=== PATIENT | female | born 1945 | race Caucasian/White ===

== ENCOUNTER → 2016-09-18 | Outpatient (CLI) | payer MEDICARE, OTHER ==
[2016-09-18 11:08] LABS: Blood Urea Nitrogen 13 mg/dL (7-17); Non-African American GFR(MDRD) >60 (>60 ml/min/1.73 sqM)
--- NOTE | 2016-09-18 12:07 | CT ---
EXAMINATION TYPE: CT chest w con DATE OF EXAM: 09/18/2016 11:46 AM COMPARISON: CT chest and abdomen July 04, [address] February 09, 2016 HISTORY: Patient has no complaints at time of study. Follow up study for known lung CA with history or Right lower lobectomy. CT DLP: 169.8 mGycm. Automated Exposure Control for Dose Reduction was Utilized. TECHNIQUE: CT scan of the thorax is performed following with IV Contrast, patient injected with 100 mL of Omnipaque 300. FINDINGS: LUNGS: Mild apical scarring bilaterally is redemonstrated. There is background of mild emphysematous change redemonstrated. Surgical clips and partial right-sided pneumonectomy are again present. There is persistent small to moderate-sized right pleural effusion or fluid collection fairly stable from p rior exam. Some associated basilar atelectasis is redemonstrated. No new parenchymal nodule or mass i s clearly identified in either lung. Slightly more focal low dense nodular fluid is seen on axial payton ge 37 but Hounsfield units are similar to adjacent pleural fluid. This area is improved from prior st udy where was at area of concern noted on prior report suggesting benign etiology. MEDIASTINUM: There are no greater than 1 cm hilar or mediastinal lymph nodes. No pericardial effusi on is seen. There is stable cardiomegaly with atherosclerotic thoracic aorta. Coronary artery calcif ication is redemonstrated. Ascending aorta measures 3.5 cm in diameter on axial image 27 felt stable from prior study. OTHER: Slight scoliotic curvature to the thoracic spine with multilevel spurring is again seen. IMPRESSION: Overall stable findings, no new mass or adenopathy is clearly seen to suggest neoplastic recurrence. Other findings as noted above.
== END | disposition home or self-care (01) ==
LOC: RADCTMAIN 10:29
PROVIDERS: ATTEND Internal Medicine Hematology & Oncology
DX: C34.90 Malignant neoplasm of unspecified part of unspecified bronchus or lung (principal)
CPT/HCPCS: 82565; 84520; 71260; 36415; Q9967

== ENCOUNTER → 2016-12-10 | Outpatient (CLI) | payer MEDICARE, OTHER ==
[2016-12-10 09:28] LABS: Blood Urea Nitrogen 20 mg/dL (7-17); Non-African American GFR(MDRD) >60 (>60 ml/min/1.73 sqM)
--- NOTE | 2016-12-10 10:50 | CT ---
EXAMINATION TYPE: CT ChestAbdPelvis w con DATE OF EXAM: 12/10/2016 COMPARISON: CT chest September 18, 2016. CT chest and abdomen July 04, 2016. HISTORY: Lung cancer CT DLP: 1794 mGycm. Automated Exposure Control for Dose Reduction was Utilized. CONTRAST: CT scan of the thorax, abdomen and pelvis is performed with oral and with IV Contrast, patient inject ed with 100 ml mL of Omnipaque 300. FINDINGS: LUNGS: Mild apical scarring bilaterally is redemonstrated. There is background mild to borderline mo derate emphysematous change again seen. There is persistent small to tiny right pleural fluid collect ion diminished in size from prior exam. There is right basilar linear scarring and/or atelectasis red emonstrated. There is interval improvement of nodular fluid collection right lung base. No new suspic ious parenchymal nodules or masses are identified. No pneumothorax is seen bilaterally. Tracheobronch ial tree is patent. Postsurgical changes from right-sided partial pneumonectomy are again present. MEDIASTINUM: There are no new greater than 1 cm hilar or mediastinal lymph nodes. Slightly prominent but subcentimeter paratracheal and right hilar lymph nodes are redemonstrated. No pericardial effusio n is seen. There is stable mild cardiomegaly. There is coronary artery calcification redemonstrated. Ascending aorta measures 3.5 cm in diameter on axial image 27 felt stable. OTHER: No additional significant abnormality is seen. LIVER/GB: No significant abnormality is appreciated. PANCREAS: No significant abnormality is seen. SPLEEN: No significant abnormality is seen. ADRENALS: No significant abnormality is seen. KIDNEYS: Subcentimeter low dense lesions lower pole left kidney are too small to further characterize per presumed benign. BOWEL: Some wall thickening of the distal rectum/anus is present seen best on coronal image 63, neopl asm at this level cannot be excluded, correlation with direct physical exam advised. GENITAL ORGANS: Uterus is surgically absent. Slightly prominent cervical remnant is seen impressing a long inferior bladder wall on axial image 116, consider correlating with direct physical exam. LYMPH NODES: No greater than 1cm abdominal or pelvic lymph nodes are appreciated. OSSEOUS STRUCTURES: There is slight scoliotic curvature in the thoracic spine. There is multilevel sp urring in the thoracolumbar spine. There are laminectomy defects and spinous process resection in the lower lumbar spine. Facet arthropathy lower lumbar levels is seen. OTHER: There is moderate atherosclerotic change of aorta extending into branch vessels. IMPRESSION: No new mass or adenopathy is seen to suggest neoplastic recurrence related to known lung cancer. Attention to distal rectum/anus and cervical remnant as detailed above.
== END | disposition home or self-care (01) ==
LOC: RADCTMAIN 08:54
PROVIDERS: ATTEND Internal Medicine Hematology & Oncology
DX: C34.31 Malignant neoplasm of lower lobe, right bronchus or lung (principal)
CPT/HCPCS: 82565; 84520; 71260; 74177; 36415; Q9967

== ENCOUNTER → 2017-03-07 | Outpatient (CLI) | payer MEDICARE, OTHER ==
[2017-03-07 10:21] LABS: Blood Urea Nitrogen 23 mg/dL (7-17); Non-African American GFR(MDRD) 54 (>60 ml/min/1.73 sqM)
--- NOTE | 2017-03-07 12:07 | CT ---
EXAMINATION TYPE: CT ChestAbdPelvis w con DATE OF EXAM: 03/07/2017 COMPARISON: CT chest abdomen and pelvis December 10, 2016. HISTORY: Lung Cancer progress study. CT DLP: 1877 mGycm. Automated Exposure Control for Dose Reduction was Utilized. CONTRAST: CT scan of the thorax, abdomen and pelvis is performed without oral but with IV Contrast, patient inj ected with 100 ml mL of Visipaque 320. FINDINGS: LUNGS: There is background moderate emphysematous change redemonstrated. There is persistent stable t iny right pleural effusion or pleural fluid collection redemonstrated. No new suspicious parenchymal nodule or mass is present bilaterally. No pneumothorax is seen bilaterally. Surgical change right hil ar level is redemonstrated. MEDIASTINUM: There are no new greater than 1 cm hilar or mediastinal lymph nodes. No cardiomegaly o r pericardial effusion is seen. Ascending aorta measures 3.6 cm in diameter on axial image 27. There is moderate mixed plaque in the aortic arch and descending aorta. Coronary artery calcification is p resent which is noted marker for coronary artery disease. OTHER: No additional significant abnormality is seen. LIVER/GB: No significant abnormality is appreciated. PANCREAS: No significant abnormality is seen. SPLEEN: No significant abnormality is seen. ADRENALS: No adrenal masses are noted. KIDNEYS: Subcentimeter low dense lesions lower pole level left kidney are too small to further charac terize but stable and presumed benign. BOWEL: Normal-appearing appendix is seen from cecum. GENITAL ORGANS: Uterus is surgically absent or markedly atrophic in appearance. LYMPH NODES: No greater than 1cm abdominal or pelvic lymph nodes are appreciated. OSSEOUS STRUCTURES: Osseous structures are somewhat demineralized. There is multilevel spurring in th e thoracolumbar spine. Slight scoliotic curvature is present. OTHER: There is fairly severe calcified plaque of the abdominal aorta extending into pelvic branch ve ssels. Cannot exclude significant stenosis in common iliac arteries bilaterally. IMPRESSION: No new mass or adenopathy is seen to suggest neoplastic recurrence.
== END | disposition home or self-care (01) ==
LOC: RADCTMAIN 09:40
PROVIDERS: ATTEND Internal Medicine Hematology & Oncology
DX: C34.31 Malignant neoplasm of lower lobe, right bronchus or lung (principal)
CPT/HCPCS: 82565; 84520; 71260; 74177; 36415; Q9967

== ENCOUNTER → 2017-09-23 | Outpatient (CLI) | payer MEDICARE, OTHER ==
--- NOTE | 2017-09-24 08:15 | CT ---
EXAMINATION TYPE: CT chest w con DATE OF EXAM: 09/23/2017 COMPARISON: CT chest June 23, 2017 and older studies back to February 09, 2016. Outside PET/CT Augus t 2015. HISTORY: Lung CA progress study. Completed chemotherapy July 2017. CT DLP: 241 mGycm. Automated Exposure Control for Dose Reduction was Utilized. TECHNIQUE: CT scan of the thorax is performed following with IV Contrast, patient injected with 100 mL of Visipaque 320. FINDINGS: LUNGS: There is background mild to moderate underlying emphysematous change redemonstrated. There is persistent small right pleural fluid collection and/or thickening in the base. There is persistent ri ght basilar linear scarring slightly thickened inferiorly but unchanged from most recent CT. Surgical changes from right-sided partial pneumonectomy with right-sided volume loss and clips towards right hilum are once again noted. No new suspicious parenchymal nodule or mass is present bilaterally. No p neumothorax is seen bilaterally. Mild Central peribronchial wall thickening is presumed product of un derlying COPD and felt unchanged. MEDIASTINUM: There is continued enlargement of tracheobronchial lymph node anterior to tom now roland suring 1.4 x 1.2 cm axial image 21, measured 1.0 x 0.6 cm on prior study. There is enlarged right par atracheal lymph node measuring 1.2 x 1.0 cm axial image 17, prior study measured 1.0 x 0.7 cm. Lymph node between SVC and right brachiocephalic artery on prior exam is now less well-defined curren t study near axial image 13. The subcentimeter right hilar lymph node axial image 26 is however felt stable. No cardiomegaly or pericardial effusion is seen. Ascending aorta measures up to 3.6 cm in di ameter axial image 27. There is moderate mixed plaque in aortic arch and descending aorta. There is l igation of right lower lobe pulmonary artery redemonstrated with scarring and/or clot at this level a xial image 30 unchanged from prior. OTHER: Slight scoliosis in the spine on coronal images is redemonstrated. 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 IMPRESSION: Continued suspicion of recurrent malignancy with increasing thoracic adenopathy in the pa racarinal and right paratracheal lymph nodes noted as detailed above
== END | disposition home or self-care (01) ==
LOC: RADCTMAIN 10:53
PROVIDERS: ATTEND Internal Medicine Hematology & Oncology
DX: R59.0 Localized enlarged lymph nodes (principal); Z88.8 Allergy status to other drugs, medicaments and biological substances
CPT/HCPCS: 82565; 84520; 71260; 36415; Q9967

== ENCOUNTER → 2017-11-08 | Outpatient (CLI) | payer MEDICARE, OTHER ==
--- NOTE | 2017-11-10 09:27 | PE ---
EXAMINATION TYPE: PET CT fusion skull to thigh DATE OF EXAM: 11/08/2017 COMPARISON: Outside PET/CT February 23, 2016. Chest CT September 23, 2017 and older studies. HISTORY: Lung cancer progress study . Had surgery July 03, 2017. Completed chemotherapy winter. TECHNIQUE: Following the intravenous administration of 10.69 mCi of F-18 FDG, whole body images are performed from the skull base to the midthigh. Images are reviewed on the computer in the coronal, a xial, and sagittal planes. Reconstructed rotating images are created on independent workstation and reviewed on the computer. A noncontrast CT is performed in conjunction with the PET scan. SCAN: Subsequent Scan FINDINGS: SKULL BASE AND NECK: There are new hypermetabolic supraclavicular lymph nodes slightly larger on the left side, for reference there is 9 x 6 mm lymph node axial image 52, max SUV is 5.84. CHEST, MEDIASTINUM, AND HILAR REGION: Abnormal thoracic lymph nodes are redemonstrated with hypermeta bolic uptake. There are hypermetabolic prevascular, anterior superior mediastinal, right paratracheal , and right tracheobronchial lymph nodes, for reference right tracheobronchial lymph node measures 15 x 12 mm axial image 76 with max SUV of 12.28. There is somewhat irregular right paratracheal lymph n ode measuring 13 x 12 mm axial image 67, max SUV is 9.68. ABDOMEN AND PELVIS: No suspicious hypermetabolic uptake is seen. OSSEOUS STRUCTURES: No suspicious hypermetabolic uptake is seen. OTHER CT: There is mild to moderate calcified plaque at bilateral carotid bulbs. Coronary artery calcification is present. There is background chronic emphysematous change with bibas ilar linear scarring and/or atelectasis. Ascending aorta measures up to 3.6 cm in diameter stable fro m prior. Surgical clips right lower lobe arterial origin are redemonstrated. There is moderate to severe calcified plaque of aorta. IMPRESSION: PET/CT confirms recurrent neoplasm as suspected on CT with thoracic and supraclavicular a denopathy identified.
== END ==
LOC: RADPETMAIN 08:26
PROVIDERS: ATTEND Internal Medicine Hematology & Oncology
DX: C34.31 Malignant neoplasm of lower lobe, right bronchus or lung (principal); E11.9 Type 2 diabetes mellitus without complications; K25.9 Gastric ulcer, unspecified as acute or chronic, without hemorrhage or perforation; R59.0 Localized enlarged lymph nodes
CPT/HCPCS: 78815; A9552

== ENCOUNTER → 2018-02-11 | Outpatient (CLI) | payer MEDICARE, OTHER ==
--- NOTE | 2018-02-12 07:07 | CT ---
EXAMINATION TYPE: CT chest w con DATE OF EXAM: 02/11/2018 COMPARISON: Chest CT September 23, 2017 and older CTs. Most recent PET CT November 08, 2017. HISTORY: Follow up scan for known lung cancer diagnosed 2 years ago with right-sided lung surgery Dec 2016. Completed chemotherapy in winter 2017. CT DLP: 530 mGycm. Automated Exposure Control for Dose Reduction was Utilized. TECHNIQUE: CT scan of the thorax is performed following with IV Contrast, patient injected with 80 m L of Isovue 300. FINDINGS: LUNGS: Background moderate underlying emphysematous changes redemonstrated. There is persistent right -sided volume loss with surgical changes right hilar region. There is right basilar linear scarring a nd small area of chronic pleural thickening redemonstrated. No new suspicious parenchymal nodule or m ass is identified bilaterally. Left lung remains clear. No new pleural effusion or pneumothorax is pr esent. MEDIASTINUM: Correlating with most recent PET/CT there is positive treatment response. There is mar ked decrease in size of previously visualized enlarged hypermetabolic lymph nodes. Largest measured l ymph node current study is 8 x 6 mm right tracheobronchial level versus 15 x 12 mm on recent PET/CT. No suspicious supraclavicular adenopathy on current study. No cardiomegaly or pericardial effusion is seen. Coronary artery calcification is redemonstrated. Ascending aorta measures up to 3.5 cm in mario meter not significantly changed from prior. OTHER: There are few subcentimeter enhancing foci in the liver redemonstrated for reference coronal i mage 32 2 lesions are redemonstrated, suspect flash filling hemangiomas. Some disc calcification is r edemonstrated roughly T6-T7 level. Slight underlying S-shaped scoliosis is again seen. IMPRESSION: Positive treatment response with interval improvement in recently visualized recurrent thoracic adenopathy. No greater than 1 cm on short axis adenopathy identified currently.
== END | disposition home or self-care (01) ==
LOC: RADCTMAIN 13:54
PROVIDERS: ATTEND Internal Medicine Hematology & Oncology
DX: C34.31 Malignant neoplasm of lower lobe, right bronchus or lung (principal); R59.0 Localized enlarged lymph nodes
CPT/HCPCS: 82565; 84520; 71260; 36415; Q9967

== ENCOUNTER → 2018-09-18 | Outpatient (CLI) | payer MEDICARE, OTHER ==
--- NOTE | 2018-09-18 13:30 | CT ---
EXAMINATION TYPE: CT ChestAbdPelvis wo con DATE OF EXAM: 09/18/2018 COMPARISON: 06/04/2018 HISTORY: follow up for known lung ca CT DLP: 482.8 mGycm. Automated Exposure Control for Dose Reduction was Utilized. TECHNIQUE: CT scan of the thorax, abdomen and pelvis is performed without IV contrast. FINDINGS: LUNGS: Partial lobectomy changes are seen within the medial right upper lobe. There is subsequent rig ht hemithorax volume loss. There is a 3 mm right upper lobe lateral pulmonary nodule on series 4 imag e 27 that is unchanged. The 3 mm right upper lobe anterior pulmonary nodule is less conspicuous on to day's exam. The previously seen groundglass opacity in the right lung apex has resolved. Background mild to moderate centrilobular emphysematous changes are again noted. Chronic pleural thic kening in the right lung base is present. 3 mm left-sided pulmonary nodule on image 33 is retrospecti vely unchanged. No new suspicious pulmonary nodules or masses are seen. The lungs are grossly clear, there is no concerning parenchymal mass or nodule identified. There is no pleural effusion or pneum othorax seen. The tracheobronchial tree is patent. MEDIASTINUM: There are no greater than 1 cm hilar or mediastinal lymph nodes. Extensive coronary calc ifications and atheromatous changes of the thoracic aorta are noted. Ascending thoracic aorta and kimberly n pulmonary artery are within normal limits. No pericardial effusion is seen. OTHER: Very small hiatal hernia seen. LIVER/GB: No significant abnormality is appreciated. The known subcentimeter hepatic lesions are not well appreciated without contrast. No cholelithiasis PANCREAS: Again the pancreatic tail is significantly atrophic.. SPLEEN: No significant abnormality is seen. ADRENALS: No significant abnormality is seen. KIDNEYS: No significant abnormality is seen. BOWEL: There is a descending duodenal diverticulum. Focal bowel wall thickening of the ascending colo n has resolved and was likely related to peristalsis/colonic spasm. Moderate amount retained colonic stool does limit evaluation of the bowel as does lack of intravenous contrast. No dilated large or sm all bowel. Appendix is air-filled and within normal limits. GENITAL ORGANS: No gross abnormality seen. LYMPH NODES: No greater than 1cm abdominal or pelvic lymph nodes are appreciated. OSSEOUS STRUCTURES: Grade 1 anterolisthesis of L4 on L5 is redemonstrated. Multilevel facet arthropat hy is again seen. No new suspicious osseous lesion. Postsurgical changes of the lower lumbar spine ar e present. OTHER: Extensive atheromatous changes are seen of the abdominal aorta and its branches. IMPRESSION: Stable postoperative change with partial right upper lobectomy. No new evidence of metast asis within the chest, abdomen, or pelvis.
== END | disposition home or self-care (01) ==
LOC: RADCTMAIN 10:49
PROVIDERS: ATTEND Internal Medicine Hematology & Oncology
DX: Z03.89 Encounter for observation for other suspected diseases and conditions ruled out (principal); C34.31 Malignant neoplasm of lower lobe, right bronchus or lung; R94.4 Abnormal results of kidney function studies; Z90.2 Acquired absence of lung [part of]
CPT/HCPCS: 36415; 71250; 74176; 82565; 84520

== ENCOUNTER → 2018-10-06 | Outpatient (CLI) | payer MEDICARE, OTHER ==
--- NOTE | 2018-10-06 15:12 | US ---
EXAMINATION TYPE: US kidneys/renal and bladder DATE OF EXAM: 10/06/2018 COMPARISON: CT 2019 CLINICAL HISTORY: N28.9 RENAL INSUFFICIENCY. Abnormal kidney function EXAM MEASUREMENTS: Right Kidney: 9.6 x 5.0 x 4.9 cm Left Kidney: 9.6 x 5.1 x 4.8 cm Right Kidney: no hydronephrosis or renal masses Left Kidney: no hydronephrosis or renal masses Bladder: not fully distended, appears wnl as seen Bilateral Jets seen: yes Assessment for bladder limited by incomplete distention.. IMPRESSION: No hydronephrosis, or nephrolithiasis. Evaluation of bladder limited by incomplete distention
== END | disposition home or self-care (01) ==
LOC: RADUSWWP 14:33
PROVIDERS: ATTEND Internal Medicine Hematology & Oncology
DX: Z03.89 Encounter for observation for other suspected diseases and conditions ruled out (principal); C34.31 Malignant neoplasm of lower lobe, right bronchus or lung; R94.4 Abnormal results of kidney function studies; N28.9 Disorder of kidney and ureter, unspecified; Z91.048 Other nonmedicinal substance allergy status
CPT/HCPCS: 76770

== ENCOUNTER → 2018-12-16 | Outpatient (CLI) | payer MEDICARE, OTHER ==
--- NOTE | 2018-12-16 22:22 | CT ---
EXAMINATION TYPE: CT chest w con DATE OF EXAM: 12/16/2018 COMPARISON: Chest CT September 18, 2018 and older studies. HISTORY: lung ca right side progress study completed treatment 2017. CT DLP: 499 mGycm. Automated Exposure Control for Dose Reduction was Utilized. TECHNIQUE: CT scan of the thorax is performed following with IV Contrast, patient injected with 100 mL of Isovue 300. FINDINGS: LUNGS: Background mild to moderate underlying emphysematous change most prominent in the upper lobes is redemonstrated. Some mild parenchymal scarring in the right lung base is redemonstrated. There is new masslike consolidation posterior right mid to lower lung measuring 1.4 x 1.1 cm axial image 37 [place] spicious for focal pneumonia, correlate clinically. Smaller areas are noted in the medial left mid richard ng with slightly more suspicious nodular or rounded 5 mm lesion seen axial image 35. All findings are new from prior study worrisome for multifocal pneumonia. No pleural effusion or pneumothorax is evid ent. Tracheobronchial tree is patent. Stable right-sided volume loss. MEDIASTINUM: There are no new greater than 1 cm hilar or mediastinal lymph nodes. Stable prominent b ut subcentimeter right tracheobronchial lymph node axial image 25. No pericardial effusion is seen. Mild cardiomegaly is seen. Coronary artery calcification is redemonstrated which is noted marker for underlying coronary artery disease. OTHER: Slight scoliotic curvature in the thoracic spine is redemonstrated.. IMPRESSION: New areas of masslike consolidation bilaterally favoring multifocal pneumonia, correlate clinically. Due to nodularity and masslike appearance short-term follow-up CT after treatment is advi sed to reassess this to rule out recurrent neoplasm.
== END | disposition home or self-care (01) ==
LOC: RADCTMAIN 15:51
PROVIDERS: ATTEND Internal Medicine Hematology & Oncology
DX: Z03.89 Encounter for observation for other suspected diseases and conditions ruled out (principal); R91.8 Other nonspecific abnormal finding of lung field; C34.31 Malignant neoplasm of lower lobe, right bronchus or lung
CPT/HCPCS: 82565; 84520; 71260; 36415; Q9967

== ENCOUNTER → 2019-03-30 | Outpatient (CLI) | payer MEDICARE, OTHER ==
--- NOTE | 2019-03-30 12:21 | CT ---
EXAMINATION TYPE: CT chest w con DATE OF EXAM: 03/30/2019 COMPARISON: 12/16/2018 and 09/18/2018 HISTORY: 74 year-old female follow-up Lung CA TECHNIQUE: Contiguous axial scanning of the chest after the administration of 100 mL of Isovue 300. Coronal/sagittal reconstructions performed. CT DLP: 325.40mGycm. Automatic exposure control utilized for a dose reduction. FINDINGS: Heart normal size without pericardial effusion. Coronary vessel calcifications are present. Aorta normal caliber with moderate atherosclerotic arch calcifications and conventional arch vessel b ranching anatomy. A 7 mm precarinal lymph node is unchanged. No new thoracic lymphadenopathy by CT size criteria. There appear to be postsurgical changes of right lower lobectomy with some slight increased pleural-b ased thickening/trace effusion on the right. Strandy scarring or atelectasis at the right base just a djacent. Couple 3 mm peripheral right upper lobe pulmonary nodules, axial image 23 and 24 are unchanged as is some subtle minimal nodularity anteriorly in the right upper lung, axial image 20. More superiorly in the right upper lung, a 3 mm pulmonary nodule was not clearly seen previously. Underlying mild centrilobular emphysema. Patchy atelectasis left base. Tiny hernia. Adrenal glands are clear. Bones: No osseous destructive process. IMPRESSION: 1. Status post right lower lobectomy. 2. A 3 mm right upper lung pulmonary nodule not clearly seen previously. This can be reassessed at fo llow-up. A few other scattered areas of nodularity on the right are unchanged back to at least 019. 3. Trace right effusion versus pleural parenchymal scarring slightly increased from 12/16/2018.
== END | disposition home or self-care (01) ==
LOC: RADCTMAIN 09:34
PROVIDERS: ATTEND Internal Medicine Hematology & Oncology
DX: R91.8 Other nonspecific abnormal finding of lung field (principal); C34.31 Malignant neoplasm of lower lobe, right bronchus or lung; Z90.2 Acquired absence of lung [part of]; Z91.048 Other nonmedicinal substance allergy status
CPT/HCPCS: 82565; 84520; 71260; 36415; Q9967

== ENCOUNTER → 2019-08-20 | Outpatient (CLI) | payer MEDICARE, OTHER ==
--- NOTE | 2019-08-20 16:38 | CT ---
EXAMINATION TYPE: CT chest w con DATE OF EXAM: 08/20/2019 COMPARISON: 03/30/2019 HISTORY: f/u lung ca patient is status post right lower lobectomy CT DLP: 361 mGycm, Automated exposure control for dose reduction was used. CONTRAST: Performed injected with 100 mL of Isovue 300. TECHNIQUE: Axial images were obtained at 5 mm thick sections. Reconstructed images are reviewed on [employer] computer in the coronal plane. FINDINGS: Portion of the thyroid visualized is normal. There is a minimal right pleural effusion. Mild emphysematous changes are present. There is some nodu larity in the periphery of the right upper lateral lung field. The largest nodule in this region miya ures 0.3 cm. Series 4 image 24. This was present previously. A 0.2 cm peripheral left lower lobe nodu le is smaller than comparison. Series 4 image 45. No enlarged mediastinal or hilar adenopathy is evident. The ascending aorta diameter at the level o f the main pulmonary artery is 3.8 cm. The main pulmonary artery diameter at the bifurcation is 2.7 cm. Coronary artery calcification is present. Limited CT sections are obtained through the upper abdomen. Abdomen is essentially unremarkable. IMPRESSIONS: 1. Stable peripheral lung nodules bilaterally. 2. Mild emphysematous changes. 3. No significant interval change from 03/30/2019.
== END | disposition home or self-care (01) ==
LOC: RADCTMAIN 14:34
PROVIDERS: ATTEND Internal Medicine Hematology & Oncology
DX: Z03.89 Encounter for observation for other suspected diseases and conditions ruled out (principal); C34.31 Malignant neoplasm of lower lobe, right bronchus or lung; J43.9 Emphysema, unspecified; Z91.09 Other allergy status, other than to drugs and biological substances
CPT/HCPCS: 71260; Q9967

== ENCOUNTER → 2019-12-20 | Outpatient (CLI) | payer MEDICARE, OTHER ==
--- NOTE | 2019-12-20 14:49 | CT ---
EXAMINATION TYPE: CT ChestAbdPelvis w con DATE OF EXAM: 12/20/2019 COMPARISON: Chest CT August 20, 2019 and older CTs. PET/CT 11/23/2017. Outside PET/CT February 23, 2016. HISTORY: Follow up for lung cancer. CT DLP: 1287 mGycm. Automated Exposure Control for Dose Reduction was Utilized. CONTRAST: CT scan of the thorax, abdomen and pelvis is performed without oral but with IV Contrast, patient inj ected with 80ml mL of Isovue 300. FINDINGS: LUNGS: Background mild to moderate underlying emphysematous change most prominent in the upper lobes is redemonstrated. Persistent right-sided volume loss with Some mild parenchymal scarring in the righ t lung base is redemonstrated. There is scattered additional mild to moderate areas of linear scarrin g bilaterally redemonstrated. No new greater than 4 mm pulmonary nodules or masses. No new pleural e ffusion or pneumothorax is evident. Tracheobronchial tree is patent. MEDIASTINUM: There are no new greater than 1 cm hilar or mediastinal lymph nodes. Stable prominent b ut subcentimeter right tracheobronchial lymph node axial image 25. No pericardial effusion is seen. Mild cardiomegaly is redemonstrated. Coronary artery calcification is redemonstrated which is noted m arker for underlying coronary artery disease. Surgical changes right hilar region redemonstrated. LIVER/GB: No significant abnormality is appreciated. PANCREAS: Generalized atrophy of the distal body and tail redemonstrated. SPLEEN: No significant abnormality is seen. ADRENALS: No significant abnormality is seen. KIDNEYS: Occasional subcentimeter low dense lesion lower pole left kidney favor simple thin-walled cy st. Symmetric cortical medullary uptake and excretion without hydronephrosis seen bilaterally. BOWEL: Slightly suboptimal evaluation without enteric contrast. No suspicious small or large bowel di latation. Stable small duodenal diverticulum is coronal image 30. Appendix redemonstrated within norm al limits in the right pelvis. No suspicious small large bowel dilatation. There is nondigested pill in the right sided pelvic bowel loops axial image 108. GENITAL ORGANS: Uterus is surgically absent or markedly atrophic. LYMPH NODES: No greater than 1cm abdominal or pelvic lymph nodes are appreciated. OSSEOUS STRUCTURES: Persistent grade 1 anterolisthesis L4 on L5. [id number] multilevel spurring and disc space narrowing in the lumbar spine. Postsurgical change posteriorly in the lower lumbar s pine redemonstrated. OTHER: Moderate to severe calcified plaque of the aorta extends into branch vessels. IMPRESSION: No new mass or adenopathy identified to suggest active neoplastic recurrence.
== END | disposition home or self-care (01) ==
LOC: RADCTMAIN 13:04
PROVIDERS: ATTEND Internal Medicine Hematology & Oncology
DX: C34.31 Malignant neoplasm of lower lobe, right bronchus or lung (principal); Z91.041 Radiographic dye allergy status
CPT/HCPCS: 82565; 84520; 71260; 74177; 36415; Q9967

== ENCOUNTER → 2019-12-29 | Outpatient (CLI) | payer MEDICARE, OTHER ==
[2019-12-29 10:21] VITALS: BP 163/73; PULSE 87; RESP 18; TEMP 98.2
--- NOTE | 2019-12-29 11:37 | P.HPOB ---
History of Present Illness H&P Date: 12/29/19 Chief Complaint: The patient is here for her routine gynecologic exam. This is a 74-year-old with an LMP of 1983. The patient is status post vaginal hysterectomy for benign reasons. The patient is here to establish with this office. She has been experiencing vulvar itching which has been generalized and does not seem to extend to the perianal area. She denies any white patches or pallor. She has noticed some generalized redness which she feels is secondary to scratching. She does not know of any possible causes for the itching. She denies vaginal discharge or odor. She has tried vaginosis [id number] which helped slightly for a few hours when she did apply it. She is otherwise without complaints. Review of Systems She states her weight Fluctuated by plus or minus 5 pounds. She denies respiratory, cardiac and G.I. problems. She denies maltreatment or problems with falling. : she denies any significant problems with urinary leakage. Past Medical History Past Medical History: Cancer, COPD, Diabetes Mellitus, Hyperlipidemia, Hypertension Additional Past Medical History / Comment(s): LUNG CANCER 2016, type 2 diabetes requiring insulin, lumbar disc disease with previous lumbar laminectomy and discectomy. Osteoarthritis. Osteoporosis and she believes she had some type of treatment in the past. 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 She did use HRT for 2 or 3 years in the past. History of Any Multi-Drug Resistant Organisms: None Reported Past Surgical History: Back Surgery, Bladder Surgery, Hysterectomy, Orthopedic Surgery Additional Past Surgical History / Comment(s): 12/01/14 Lumbar laminectomy with decompression L4-5, discectomy L4-L5. Surgical repair of a hiatal hernia for GE reflux, rt cataract, RT LUNG LOWER LOBECTOMY 2015. Vaginal hysterectomy 1983. Past Anesthesia/Blood Transfusion Reactions: No Reported Reaction Additional Past Anesthesia/Blood Transfusion Reaction / Comment(s): Pt has never recieved blood. Past Psychological History: Anxiety Additional Psychological History / Comment(s): She is indepndent. She uses no assistive devices. She has no home care agency use. She drives a car. Smoking Status: Former smoker Past Alcohol Use History: None Reported Additional Past Alcohol Use History / Comment(s): Pt started smoking in 1958 and quit in 1995 Past Drug Use History: None Reported Additional History: She has been a since 2014. She is not sexually active. She is retired. - Past Family History Sister(s) Family Medical History: Cancer, Diabetes Mellitus Additional Family Medical History / Comment(s): One sister had breast cancer and another sister had bone cancer. Multiple siblings have diabetes. Mother Family Medical History: Diabetes Mellitus Additional Family Medical History / Comment(s): Heart disease. Father Family Medical History: No Reported History Medications and Allergies Home Medications Medication Instructions Recorded Confirmed Type Cholecalciferol [Vitamin D3 (25 2,000 unit PO DAILY 11/21/14 12/29/19 History Mcg = 1000 Iu)] Fenofibrate [Lofibra] 160 mg PO HS 11/21/14 12/29/19 History Insulin Glargine [Lantus] 22 unit SQ HS 11/21/14 12/29/19 History Vitamin E (Dl,Tocopheryl Acet) 400 unit PO DAILY 11/21/14 12/29/19 History [Vitamin E] amLODIPine [Norvasc] 5 mg PO BID 11/21/14 12/29/19 History INSULIN LISPRO (HumaLOG) [humaLOG] 8 unit SQ AC-BRKFST 05/27/16 12/29/19 History INSULIN LISPRO (HumaLOG) [humaLOG] 10 unit SQ AC-LUNCH 05/27/16 12/29/19 History INSULIN LISPRO (HumaLOG) [humaLOG] 14 unit SQ AC-SUPPER 05/27/16 12/29/19 History LORazepam [Ativan] 0.5 mg PO HS PRN 05/27/16 12/29/19 History Pravastatin Sodium [Pravachol] 80 mg PO HS 06/16/17 12/29/19 History Acetaminophen/Diphenhydramine 1 tab PO HS 12/29/19 12/29/19 History [Tylenol PM 500-25mg] Folic Acid 1 mg PO DAILY 12/29/19 12/29/19 History hydrALAZINE HCL 10 mg PO BID 12/29/19 12/29/19 History Allergies Allergy/AdvReac Type Severity Reaction Status Date / Time adhesive Allergy Rash/Hives Verified 12/29/19 10:14 Exam Vital Signs Temp Pulse Resp BP Pulse Ox 12/29/19 10:14 98.2 F 87 18 163/73 97 Intake and Output 12/28/19 12/29/19 12/29/19 22:59 06:59 14:59 Other: Weight 67.132 kg Height 5 feet 6 inches, weight 148 pounds, BMI 23.9. This is a well-developed well-nourished white female who is alert and oriented times 3 in no acute distress. HEENT: Within normal limits. NECK: Supple without mass or thyromegaly. CHEST AND LUNGS: Clear to auscultation. HEART: Regular rate and rhythm. BREASTS: Are without mass or discharge. AXILLARY EXAM: Negative for adenopathy. BACK: Negative for CVA tenderness. ABDOMEN: Soft, nontender, without palpable masses. PELVIC EXAM: External genitalia reveals mild atrophy with mild generalized erythema with no focal lesions. Vagina appears normal with mild atrophy. There is no evidence of prolapse. Bimanual examination is negative for mass or te nderness. RECTAL EXAM: Rectovaginal exam is negative for mass or tenderness and is negative for occult blood. EXTREMITIES: Nontender. IMPRESSION: 1. 74-year-old menopausal female status post vaginal hysterectomy for benign reasons with chronic generalized vulvar pruritus with generalized vulvar erythema. This does not have the typical appearance of lichen sclerosus and there is no gross evidence of Sara vaginitis at this time. 2. History of osteoporosis and she believes she had previous treatment of some type per the patient. PLAN: 1. Pap smears have been discontinued. 2. Self breast awareness was discussed with the patient. 3. Screening mammogram was last done at [facility] in 2019. She is uncertain of the month it was done. The order slip for screening mammogram was given to the patient. She will contact [facility] to see when her next one is due. 4. Affirm testing for Sara, bacterial vaginosis, and Trichomonas was performed from the vagina. If this testing is negative, consider treatment with a moderate potency corticosteroid cream. I have stressed the importance of not over washing and trying to avoid scratching. She is also to avoid contact with chlorinated water. If symptoms do not improve over time, consider vulvar biopsy. 5. She states she will try to get the records from her bone density testing and to try to determine what treatment she has had for osteoporosis in the past. 6. She did receive a flu shot last fall. 7. The patient was advised to return in 1-2 years for her well woman examination.
[2019-12-30 04:58] LABS: Gardnerella Negative (Negative); Source Vagina; Trichomonas Negative (Negative)
--- NOTE | 2019-12-30 16:19 | P.PN ---
Progress Note - Text Progress Note Date: 12/30/19 The patient was notified by phone of her negative Affirm testing for Sara, Gardnerella and Trichomonas. Chronic vulvar pruritis/vulvitis will be treated with Kenalog 0.1% cream BID prn vulvar pruritis. After one week, she is to wean off the cream and can use a small amount of petroleum jelly once a day as a protective layer. Then she can use the Kenalog prn. She is to call if symptoms are not improving or if problems. If symptoms do not improve, we will consider biopsy of the vulva. The electronic prescription will be sent to [facility] in [place].
== END | disposition home or self-care (01) ==
LOC: WWCWWP 09:54
PROVIDERS: ATTEND Obstetrics & Gynecology
DX: L29.2 Pruritus vulvae (principal)
CPT/HCPCS: 87480; 87510; 87660

== ENCOUNTER → 2020-04-04 | Outpatient (CLI) | payer MEDICARE, OTHER ==
--- NOTE | 2020-04-05 08:09 | CT ---
EXAMINATION TYPE: CT ChestAbdPelvis w con DATE OF EXAM: 04/04/2020 COMPARISON: Prior CT December 20, 2019 and older CTs HISTORY: lung ca, observe for mets. Lung cancer originally diagnosed 2016. CT DLP: 1296 mGycm. Automated Exposure Control for Dose Reduction was Utilized. CONTRAST: CT scan of the thorax, abdomen and pelvis is performed without oral but with IV Contrast, patient inj ected with 100 mL of Isovue 300. FINDINGS: LUNGS: Background mild to moderate underlying emphysematous change is redemonstrated. Mild linear sca rring in both bases. No suspicious new greater than 4 mm nodules or masses. No pleural effusion or pn eumothorax seen bilaterally. Stable right-sided volume loss. MEDIASTINUM: Persistent right hilar surgical changes. There are no new greater than 1 cm hilar or me diastinal lymph nodes. Stable prominent but subcentimeter right tracheobronchial lymph node axial im age 21. No pericardial effusion is seen. Persistent cardiomegaly. Persistent coronary artery calcific ation. Ligated right lower lobe pulmonary artery redemonstrated. LIVER/GB: Liver remains stable and low dense. PANCREAS: Generalized atrophy of distal body and tail redemonstrated. SPLEEN: No significant abnormality is seen. ADRENALS: No significant abnormality is seen. KIDNEYS: Occasional. Subcentimeter thin-walled cyst reference lateral lower pole left kidney series 7 image 44. BOWEL: Small duodenal diverticulum redemonstrated coronal image 37 measuring 1.9 cm. GENITAL ORGANS: Uterus is surgically absent or markedly atrophic. Slightly bulky uterine segment or r etained cervix is stable. LYMPH NODES: No greater than 1cm abdominal or pelvic lymph nodes are appreciated. OSSEOUS STRUCTURES: Persistent grade 1 anterolisthesis L4 on L5. [id number] disc space narrowin g and spurring at this level. Postsurgical change posteriorly at lower lumbar spine redemonstrated. S light scoliotic curvature on coronal images. OTHER: Moderate to severe calcified plaque of the abdominal aorta extends into branch vessels. IMPRESSION: No new suspicious mass or adenopathy identified to suggest neoplastic recurrence. No sig nificant interval change from most recent CT.
== END | disposition home or self-care (01) ==
LOC: RADCTMAIN 14:42
PROVIDERS: ATTEND Internal Medicine Hematology & Oncology
DX: Z03.89 Encounter for observation for other suspected diseases and conditions ruled out (principal); C34.31 Malignant neoplasm of lower lobe, right bronchus or lung; Z91.048 Other nonmedicinal substance allergy status
CPT/HCPCS: 82565; 84520; 71260; 74177; 36415; Q9967

== ENCOUNTER → 2020-06-28 | Outpatient (CLI) | payer MEDICARE, OTHER ==
--- NOTE | 2020-06-28 11:15 | P.PN ---
Progress Note - Text Progress Note Date: 06/28/20 Chief Complaint: Right Vulvar burning about 3 or 4 weeks ago HPI: This is a 75-year-old with an LMP of 1983. She is status post vaginal hysterectomy for benign reasons. She has a history of vulvar pruritus and has used Kenalog cream to the vulva for this. She states the Kenalog cream has been helpful. She noticed a change about 3-4 weeks ago when the cream seem to burn a small area on the right labia. She got there may be an open sore at that time. She states it resolved and is no longer bothering her. She cannot remember a time when she scratched the area and broke skin. She is otherwise without complaints. ROS: She denies respiratory, cardiac and G.I. problems. She denies maltreatment or problems with falling. : she denies any significant problems with urinary leakage. PE: Blood pressure: 131/69, Height: 5 feet 6 inches, Weight: And 50 pounds, Temperature: 98.0, Pulse: 98. Pulse oximeter 95% This is a well developed, well nourished, white female who is alert and orientedx3, in no acute distress. External genitalia reveals mild general atrophy. There is a 9 mm fresh scar area which is not raised and non-erythematous on the right labia majora in the mid section. This is nontender and is not ulcerated. There are no other lesions noted. Impression: 1. 75-year-old menopausal female with history of chronic vulvar pruritus improved with Kenalog cream. 2. Well-healed scar on the right labia majora which probably represents a healed area where skin was broken with scratching. I doubt HSV. The well- healed scarred area appears completely benign without signs of leukoplakia. Plan: 1. Conservative management. She will continue to use Kenalog 0.1% cream twice a day when necessary. If the right labial area changes in appearance or becomes symptomatic such as burning with application of the cream, she was instructed to make an appointment right away so I can look at it at that time. 2. She will return in approximately 6 months for her annual examination. Time spent with the patient: 25 minutes
== END | disposition home or self-care (01) ==
DX: Z53.9 Procedure and treatment not carried out, unspecified reason (principal)

== ENCOUNTER → 2020-07-11 | Outpatient (CLI) | payer MEDICARE, OTHER ==
--- NOTE | 2020-07-11 12:14 | CT ---
EXAMINATION TYPE: CT ChestAbdPelvis w con DATE OF EXAM: 07/11/2020 COMPARISON: 04/04/2020 and 12/20/2019 HISTORY: 75-year-old female C34.31, lung cancer, Z03.89, suspect metastases. TECHNIQUE: Contiguous axial scanning of the chest, abdomen, and pelvis performed with IV Contrast, pa tient injected with 100 mL of Isovue 300. Delayed images through the kidneys were obtained. Coronal/s agittal reconstructions performed. CT DLP: 738.50 mGycm Automated exposure control for dose reduction was used. FINDINGS: CHEST: Heart normal size without pericardial effusion. Scattered three-vessel coronary artery calcifications are present. Borderline ectatic ascending aorta at 3.6 cm. Scattered mild to moderate prostatic calcifications thr oughout with bovine configuration to the aortic arch. Stable 5 mm lower right paratracheal lymph node. No thoracic lymphadenopathy by CT size criteria. Postsurgical change of right lower lobectomy. Some stable cysts. Strandy scarring in the lower lungs. Mild pleural thickening posterior right base remains unchanged. Mild centrilobular emphysema upper and mid lungs. A few 4 mm pulmonary nodules posterior left lung, axial images 34, 44, and 46 remain unchanged. A couple 4 mm pulmonary nodules right mid lung, axial image 27 and 28, remain unchanged. No consolidation or pleural effusion. ABDOMEN: No focal liver lesion or biliary ductal dilatation. Portal venous system is patent. Gallbladder, adrenal glands, kidneys, spleen, atrophic pancreas show no gross abnormal body. Small 1.7 cm diverticulum of the second portion of the duodenum projecting into the pancreatic head r egion. Moderate atherosclerotic calcifications abdominal aorta and common iliac arteries. No dilated small bowel, free fluid, or free air. No mesenteric or retroperitoneal lymphadenopathy. Normal appendix. Scattered mild stool burden. No pericolonic inflammatory change. PELVIS: Bladder is underdistended. Uterus surgically absent. Small bilateral ovaries are seen. No abnormal fl uid collection in the pelvis or pelvic lymphadenopathy. BONES: Hypertrophic facet arthropathy mid to lower lumbar spine with grade 1 anterolisthesis L4-L5. No osseo us destructive process. IMPRESSION: 1. COPD WITH MILD EMPHYSEMA. STABLE FEW SCATTERED 4 MM PULMONARY NODULES. 2. STATUS POST RIGHT LOWER LOBECTOMY. NO EVIDENCE FOR LOCAL RECURRENCE OR METASTATIC DISEASE.
== END | disposition home or self-care (01) ==
LOC: RADCTMAIN 09:38
PROVIDERS: ATTEND Internal Medicine Hematology & Oncology
DX: J43.9 Emphysema, unspecified (principal); R91.8 Other nonspecific abnormal finding of lung field; C34.31 Malignant neoplasm of lower lobe, right bronchus or lung; Z90.2 Acquired absence of lung [part of]; Z91.048 Other nonmedicinal substance allergy status
CPT/HCPCS: 82565; 84520; 71260; 74177; 36415; Q9967

== ENCOUNTER → 2021-01-10 | Outpatient (CLI) | payer MEDICARE, OTHER ==
[2021-01-10 10:53] VITALS: BP 124/66; PULSE 83; RESP 18; TEMP 97.9
--- NOTE | 2021-01-10 11:47 | P.HPOB ---
History of Present Illness H&P Date: 01/10/21 Chief Complaint: And is here for her routine gynecologic exam. This is a 75-year-old with an LMP of 1983. The patient is status post vaginal hysterectomy for benign reasons. She states she continues to use Kenalog cream as needed for vulvar irritation. She states it is doing much better than last year. She denies any vaginal bleeding or vulvar bleeding. She is otherwise without gynecologic complaints. Review of Systems She is gained about 6 pounds over the past year. Respiratory: Occasional symptoms from COPD especially with the warmer weather. She denies cardiac or G.I. problems. She denies maltreatment or problems with falling. : she denies any significant problems with urinary leakage. Past Medical History Past Medical History: Cancer, COPD, Diabetes Mellitus, Hyperlipidemia, Hypertension Additional Past Medical History / Comment(s): LUNG CANCER 2016, type 2 diabetes requiring insulin, lumbar disc disease with previous lumbar laminectomy and discectomy. Osteoarthritis. Osteoporosis and she is unsure of whether she was treated for this in the past. PAST SECTION HAND HISTORY: She has no history of STDs. She did use HRT for 2 or 3 years in the past. History of Any Multi-Drug Resistant Organisms: None Reported Past Surgical History: Back Surgery, Bladder Surgery, Hysterectomy, Orthopedic Surgery Additional Past Surgical History / Comment(s): 12/01/14 Lumbar laminectomy with decompression L4-5, discectomy L4-L5. Surgical repair of a hiatal hernia for GE reflux, rt cataract, RT LUNG LOWER LOBECTOMY 2015. Vaginal hysterectomy 1983. Patient states she had a colonoscopy approximately in 2016. Past Anesthesia/Blood Transfusion Reactions: No Reported Reaction Additional Past Anesthesia/Blood Transfusion Reaction / Comment(s): Pt has never recieved blood. Past Psychological History: Anxiety Additional Psychological History / Comment(s): She is indepndent. She uses no assistive devices. She has no home care agency use. She drives a car. Smoking Status: Former smoker Past Alcohol Use History: None Reported Additional Past Alcohol Use History / Comment(s): Pt started smoking in 9 and quit in 1995 Past Drug Use History: None Reported Additional History: She has been a since 2014 and is not sexually active. She is retired. - Past Family History Mother Family Medical History: Diabetes Mellitus Additional Family Medical History / Comment(s): Heart disease. Father Family Medical History: No Reported History Sister(s) Family Medical History: Cancer, Diabetes Mellitus Additional Family Medical History / Comment(s): One sister had breast cancer and another sister had bone cancer. Multiple siblings have diabetes. Medications and Allergies Home Medications Medication Instructions Recorded Confirmed Type Cholecalciferol [Vitamin D3 (25 2,000 unit PO DAILY 11/21/14 01/10/21 History Mcg = 1000 Iu)] Fenofibrate [Lofibra] 160 mg PO HS 11/21/14 01/10/21 History Insulin Glargine [Lantus] 22 unit SQ HS 11/21/14 01/10/21 History Vitamin E (Dl,Tocopheryl Acet) 400 unit PO DAILY 11/21/14 01/10/21 History [Vitamin E] INSULIN LISPRO (HumaLOG) [humaLOG] 8 unit SQ AC-BRKFST 05/27/16 01/10/21 History INSULIN LISPRO (HumaLOG) [humaLOG] 10 unit SQ AC-LUNCH 05/27/16 01/10/21 History INSULIN LISPRO (HumaLOG) [humaLOG] 14 unit SQ AC-SUPPER 05/27/16 01/10/21 History LORazepam [Ativan] 0.5 mg PO HS PRN 05/27/16 01/10/21 History Pravastatin Sodium [Pravachol] 80 mg PO HS 06/16/17 01/10/21 History Acetaminophen/Diphenhydramine 1 tab PO HS 12/29/19 01/10/21 History [Tylenol PM 500-25mg] Folic Acid 1 mg PO DAILY 12/29/19 01/10/21 History hydrALAZINE HCL 50 mg PO BID 12/29/19 01/10/21 History Triamcinolone 0.1% Cream [Kenalog 1 applicatio TOPICAL BID PRN #30 gm 12/30/19 01/10/21 Rx 0.1% Cream] Escitalopram [Lexapro] 10 mg PO DAILY 06/28/20 01/10/21 History Levothyroxine Sodium 100 mcg PO DAILY 06/28/20 01/10/21 History Ondansetron HCl [Zofran] 4 mg PO Q8H PRN 06/28/20 01/10/21 History Pantoprazole [Protonix] 40 mg PO DAILY 06/28/20 01/10/21 History Allergies Allergy/AdvReac Type Severity Reaction Status Date / Time adhesive Allergy Rash/Hives Verified 01/10/21 10:47 Exam Vital Signs Temp Pulse Resp BP Pulse Ox 01/10/21 10:47 97.9 F 83 18 124/66 97 Intake and Output 01/09/21 01/10/21 01/10/21 22:59 06:59 14:59 Other: Weight 69.853 kg Height 5 feet 5 inches, weight 154 pounds, BMI 25.6. This is a well-developed well-nourished white female who is alert and oriented times 3 in no acute distress. HEENT: Within normal limits. NECK: Supple without mass or thyromegaly. CHEST AND LUNGS: Clear to auscultation. HEART: Regular rate and rhythm. BREASTS: Are without mass or discharge. AXILLARY EXAM: Negative for adenopathy. BACK: Negative for CVA tenderness. ABDOMEN: Soft, nontender, without palpable masses. PELVIC EXAM: External genitalia appears normal with moderate atrophy. The right labia minora is fused with the right labia majora consistent with atrophy. There are no vulvar lesions and no significant pallor. There is no significant erythema or excoriation. Vagina appears normal with moderate atrophy. There is no evidence of prolapse. Bimanual examination is negative for mass or tenderness. RECTAL EXAM: Rectovaginal exam is negative for mass or tenderness and is negative for occult blood. EXTREMITIES: Nontender. IMPRESSION: 1. 75-year-old menopausal female status post vaginal hysterectomy for benign reasons, with normal exam. 2. History of chronic vulvar pruritus and vulvitis symptomatically improved with Kenalog cream when necessary. 3. History of osteoporosis in the patient is uncertain as to whether she was treated for this with medication. Incomplete database. PLAN: 1. Pap smears have been discontinued. 2. Self breast awareness was discussed with the patient. 3. Screening mammogram is due and the order slip was given to the patient for this. She previously did her mammograms at [facility], but states she will will have this done at [facility]. 4. Osteoporosis management was discussed. I have stressed the importance of adequate calcium, vitamin D and regular exercise. Recommended amounts of calcium and vitamin D were also discussed. Since she is uncertain as to whether she had treatment for osteoporosis and she states it has been many years since her last bone density test, I have recommended bone density test to see where we stand and we can consider the options at that point. She will try to see if she had some form of treatment with her primary care doctor and to see if he has records for previous testing and treatment. The order slip was given to the patient for the bone density test. She states she would like to try to have this done at the same time as her mammogram. 5. She has completed her Covid vaccination series. 6. She did receive her flu shot last fall. 7. A prescription for Kenalog 0.1% cream will be sent to [facility] pharmacy in [place]. She will use this twice a day when necessary for vulvar pruritus. 8. She was advised to return in one year for her annual well woman exam.
== END ==
LOC: WWCWWP 10:42
PROVIDERS: ATTEND Obstetrics & Gynecology
DX: Z01.419 Encounter for gynecological examination (general) (routine) without abnormal findings (principal); J44.9 Chronic obstructive pulmonary disease, unspecified; E11.9 Type 2 diabetes mellitus without complications; E78.5 Hyperlipidemia, unspecified; I10 Essential (primary) hypertension; F41.9 Anxiety disorder, unspecified; Z90.710 Acquired absence of both cervix and uterus; Z79.4 Long term (current) use of insulin; Z87.42 Personal history of other diseases of the female genital tract; Z87.310 Personal history of (healed) osteoporosis fracture; Z87.891 Personal history of nicotine dependence; Z91.048 Other nonmedicinal substance allergy status

== ENCOUNTER → 2021-01-17 | Outpatient (CLI) | payer MEDICARE, OTHER ==
--- NOTE | 2021-01-17 10:37 | CT ---
EXAMINATION TYPE: CT ChestAbdPelvis w con DATE OF EXAM: 01/17/2021 COMPARISON: 07/11/2020 HISTORY: Lung cancer CT DLP: 684.00 mGycm CONTRAST: CT scan of the chest, abdomen and pelvis is performed without Oral Contrast and with IV Contrast, pat ient injected with 100 ml mL of Isovue 300. CT Chest: LUNGS: Stable features of a right lower lobectomy. Stable pleural thickening right lower lobe posteri reno. Previously noted scattered nodules are not redemonstrated at this time. Mild COPD and emphysema noted. The lungs are clear and free of infiltrate or atelectasis. No pulmonary nodule or mass is de tected. No pleural effusion or CT evidence of interstitial lung disease. MEDIASTINUM: Thoracic aorta is of normal caliber. The heart is not enlarged. No evidence for media stinal mass or adenopathy. HILAR STRUCTURES: No evidence for mass. No hilar adenopathy is appreciated. OTHER: No significant abnormality. CONTRAST CT ABDOMEN AND PELVIS FINDINGS: LIVER/GB: No calcified gallstones. No space occupying hepatic lesion. Biliary tree is of normal ca liber. PANCREAS: No inflammation. No distinct mass. SPLEEN: No splenic enlargement. No lesion seen. ADRENALS: No nodule. No thickening. KIDNEYS/BLADDER: No hydronephrosis. No nephrolithiasis. No disctinct renal mass. BOWEL: Normal appendix. Normal bowel caliber. No inflammation. GENITAL ORGANS: No gross abnormality. LYMPH NODES: No greater than 1cm abdominal or pelvic lymph nodes are appreciated. AORTA: No significant abnormality. OSSEOUS STRUCTURES: No significant abnormality is seen. OTHER: No significant additional abnormality is seen. IMPRESSION: 1. Stable appearance of the chest without evidence for metastatic disease at this time.
== END | disposition home or self-care (01) ==
LOC: RADCTMAIN 08:47
PROVIDERS: ATTEND Internal Medicine Hematology & Oncology
DX: J43.9 Emphysema, unspecified (principal); Z85.118 Personal history of other malignant neoplasm of bronchus and lung
CPT/HCPCS: 82565; 84520; 71260; 74177; 36415; Q9967

== ENCOUNTER → 2021-06-05 | Outpatient (CLI) | payer MEDICARE, OTHER ==
--- NOTE | 2021-06-05 23:20 | BD ---
EXAMINATION TYPE: Axial Bone Density DATE OF EXAM: 06/05/2021 COMPARISON: NONE CLINICAL HISTORY: Height: 65.5 Weight: 154.6 FRAX RISK QUESTIONS: Alcohol (3 or more units per day): no Family History (Parent hip fracture): no Glucocorticoids (More than 3mos): no (Ex: prednisone, prednisolone, methylprednisolone, dexamethasone, and hydrocortisone). History of Fracture in Adulthood: no Secondary Osteoporosis: 1. Type 1 Diabetes: no 2. Hyperthyroidism: no 3. Menopause before 45: no 4. Malnutrition: no 5. Chronic liver disease: no Rheumatoid Arthritis: no Current Tobacco Use: no RISK FACTORS HISTORY OF: Surgery to Spine/Hip(right/left)/Wrist (right/left): no Family History of Osteoporosis: yes Active: yes Diet low in dairy products/other sources of calcium: yes Postmenopausal woman: yes Lost more than 2 inches in height since high school: no MEDICATIONS: diabetic meds, amlodipine, vitamins Thyroid Medications: levothyroxine How Lon years Additional History: EXAM MEASUREMENTS: Bone mineral densitometry was performed using the Numerate System. Bone mineral density as measured about the Lumbar spine is: ----- L1-L4(G/cm2): 1.172 T Score Values are as follows: ----- L2: 0.3 ----- L3: 0.7 ----- L4: -0.1 ----- L1-L4: -0.1 Bone mineral density : baseline Bone mineral density about the R hip (g/cm2): 0.649 Bone mineral density about the L hip (g/cm2): 0.656 T Score values are as follows: -----R Neck: -2.8 -----L Neck: -2.7 -----R Total: -2.5 -----L Total: -2.3 Bone mineral density : baseline IMPRESSION: Osteoporosis (T Score less than -2.5). There is increased fracture risk and therapy is usually indicated based on age. Re-Screen 1-2 years. NOTE: T-SCORE=SD OF THE YOUNG ADULT MEAN.
--- NOTE | 2021-06-07 10:52 | MM ---
Reason for exam: screening (asymptomatic). Last mammogram was performed 6 years and 3 months ago. History: Patient is postmenopausal. Physical Findings: A clinical breast exam by your physician is recommended on an annual basis and results should be correlated with mammographic findings. MG 3D Screening Mammo W/Cad Bilateral CC and MLO view(s) were taken. Prior study comparison: March 10, 2015, mammogram, performed at [facility]. March 06, 2015, mammogram, performed at [facility]. December 30, 2013, mammogram, performed at [facility]. There are scattered fibroglandular densities. Finding: There are increased coarse heterogeneous, grouped/clustered, regional calcifications in the upper outer quadrant of the left breast. New finding since March 10, 2015, March 06, 2015, and December 30, 2013. ASSESSMENT: Incomplete: need additional imaging evaluation, BI-RAD 0 RECOMMENDATION: Special view mammogram of the left breast. [facility] will attempt to contact patient to return for supplemental views.
== END | disposition home or self-care (01) ==
LOC: RADMAMWWP 13:24
PROVIDERS: ATTEND Obstetrics & Gynecology
DX: Z12.31 Encounter for screening mammogram for malignant neoplasm of breast (principal); M81.0 Age-related osteoporosis without current pathological fracture; Z78.0 Asymptomatic menopausal state
CPT/HCPCS: 77063; 77067; 77080

== ENCOUNTER → 2021-06-11 | Outpatient (CLI) | payer MEDICARE, OTHER ==
--- NOTE | 2021-06-11 11:52 | MM ---
Reason for exam: screening (asymptomatic). Last mammogram was performed less than 1 month ago. History: Patient is postmenopausal and has history of other cancer at age 71. Family history of breast cancer in sister at age 50. Physical Findings: A clinical breast exam by your physician is recommended on an annual basis and results should be correlated with mammographic findings. MG 3D Work Up W/Cad LT CC with magnification, MLO with magnification, and ML view(s) were taken of the left breast. Prior study comparison: June 05, 2021, bilateral MG 3d screening mammo w/cad. March 10, 2015, mammogram, performed at [facility]. Finding: There are typically benign calcifications in the left breast. These results were verbally communicated with the patient and result sheet given to the patient on 06/11/21. ASSESSMENT: Probably benign, BI-RAD 3 RECOMMENDATION: Follow-up diagnostic mammogram of the left breast in 6 months. (with magnification views)
== END | disposition home or self-care (01) ==
LOC: RADMAMWWP 09:43
PROVIDERS: ATTEND Obstetrics & Gynecology
DX: R92.8 Other abnormal and inconclusive findings on diagnostic imaging of breast (principal); Z78.0 Asymptomatic menopausal state; Z85.89 Personal history of malignant neoplasm of other organs and systems; Z80.3 Family history of malignant neoplasm of breast
CPT/HCPCS: 77065; G0279; 77061

== ENCOUNTER → 2021-08-06 | Outpatient (CLI) | payer MEDICARE ==
--- NOTE | 2021-08-07 06:55 | CT ---
EXAMINATION TYPE: CT ChestAbdPelvis w con DATE OF EXAM: 08/06/2021 COMPARISON: CT January 17, 2021 and older studies. HISTORY: Lung cancer originally diagnosed 2015. CT DLP: 798.8 mGycm. Automated Exposure Control for Dose Reduction was Utilized. CONTRAST: CT scan of the thorax, abdomen and pelvis is performed without oral but with IV Contrast, patient inj ected with 100 mL of Isovue M300. FINDINGS: LUNGS: Background mild underlying emphysematous change is redemonstrated. Mild linear scarring in bot h bases elevated right hemidiaphragm is redemonstrated. Stable scattered micronodules for reference t o adjacent 3 mm nodules in the right midlung axial images 24 and 25. No suspicious new on enlarging g reater than 4 mm nodules or masses. No pleural effusion or pneumothorax seen bilaterally. Stable righ t-sided volume loss. MEDIASTINUM: Persistent right hilar surgical changes. There are no new greater than 1 cm hilar or me diastinal lymph nodes. Stable prominent but subcentimeter right tracheobronchial lymph node axial im age 22 current study. No pericardial effusion is seen. Stable mild cardiomegaly. Persistent coronary artery calcification. Ligated right lower lobe pulmonary artery redemonstrated. Somewhat small size t hyroid gland is again seen. LIVER/GB: Liver remains stable and low dense. PANCREAS: Severe atrophy of distal body and tail redemonstrated. SPLEEN: No significant abnormality is seen. ADRENALS: No significant abnormality is seen. KIDNEYS: No concerning new mass or hydronephrosis. BOWEL: Persistent 2.5 cm duodenal diverticulum redemonstrated axial image 66. No suspicious small or large bowel dilatation. GENITAL ORGANS: Uterus is surgically absent or markedly atrophic. Slightly bulky uterine segment or r etained cervix is stable. LYMPH NODES: No greater than 1cm abdominal or pelvic lymph nodes are appreciated. OSSEOUS STRUCTURES: Stable grade 1 anterolisthesis L4 on L5. Dyrg-ls-xrrelcsm disc space narrowing an d spurring at this level is redemonstrated. Postsurgical change posteriorly at lower lumbar spine red emonstrated. Slight scoliotic curvature on coronal images is redemonstrated. OTHER: Moderate to severe calcified plaque of the abdominal aorta extends into branch vessels. IMPRESSION: No enlarging or new suspicious mass or adenopathy identified to suggest active neoplastic recurrence. No significant interval change from most recent CT.
== END | disposition home or self-care (01) ==
LOC: RADCTMAIN 13:25
PROVIDERS: ATTEND Internal Medicine Hematology & Oncology
DX: C34.31 Malignant neoplasm of lower lobe, right bronchus or lung (principal); E11.9 Type 2 diabetes mellitus without complications
CPT/HCPCS: 82565; 84520; 71260; 74177; 36415; Q9967

== ENCOUNTER → 2022-02-04 | Outpatient (CLI) | payer MEDICARE ==
--- NOTE | 2022-02-04 12:06 | CT ---
EXAMINATION TYPE: CT ChestAbdPelvis w con DATE OF EXAM: 02/04/2022 COMPARISON: Prior CT August 06, 2021 and older studies. HISTORY: Hx lung ca originally diagnosed 2016, observe for mets CT DLP: 871.20 mGycm. Automated Exposure Control for Dose Reduction was Utilized. CONTRAST: CT scan of the thorax, abdomen and pelvis is performed without oral but with IV Contrast, patient inj ected with 70 mL of Isovue 300. FINDINGS: LUNGS: Background mild underlying emphysematous change is redemonstrated. Mild linear scarring in bot h bases and slightly elevated right hemidiaphragm is redemonstrated. Stable scattered micronodules fo r reference there are two 3 mm nodules in the right midlung axial image 26 redemonstrated. Stable 9 x 6 mm focal nodule or more likely nodular scarring anterior right mid to lower lung axial image 35 f rom several prior studies. No pleural effusion or pneumothorax seen bilaterally. Stable right-sided v olume loss. New peripheral 12 x 9 mm left basilar nodule or nodular consolidation axial image 45 shou ld be followed carefully. MEDIASTINUM: Persistent right hilar surgical changes. There are no new greater than 1 cm hilar or me diastinal lymph nodes. Stable prominent but subcentimeter right tracheobronchial lymph node axial im age 21 current study. No pericardial effusion is seen. Stable mild cardiomegaly. Coronary artery calc ification redemonstrated. Ligated right lower lobe pulmonary artery redemonstrated. Somewhat small si ze thyroid gland is again seen. LIVER/GB: Liver remains stable and low dense. No new biliary dilatation. PANCREAS: Severe atrophy of distal body and tail redemonstrated. SPLEEN: No significant abnormality is seen. ADRENALS: No significant abnormality is seen. KIDNEYS: No concerning new mass or hydronephrosis. BOWEL: Persistent 2.3 cm duodenal diverticulum redemonstrated coronal image 36. No suspicious small o r large bowel dilatation. GENITAL ORGANS: Uterus is surgically absent or markedly atrophic. Slightly bulky uterine remnant or r etained cervix is stable axial image 112. LYMPH NODES: No greater than 1cm abdominal or pelvic lymph nodes are appreciated. OSSEOUS STRUCTURES: Stable grade 1 anterolisthesis L4 on L5. Byjn-ba-clalkyuf disc space narrowing an d spurring at this level is redemonstrated. Postsurgical change posteriorly at lower lumbar spine red emonstrated. Slight scoliotic curvature on coronal images is redemonstrated. OTHER: Moderate to severe calcified plaque of the abdominal aorta extends into branch vessels. IMPRESSION: Nonspecific peripheral left basilar 12 x 9 mm nodule or nodular consolidation favors infl ammation or atelectatic change. Short-term follow-up advised. Otherwise no new or enlarging mass or a denopathy is seen to suggest neoplastic recurrence.
== END | disposition home or self-care (01) ==
LOC: RADCTMAIN 09:08
PROVIDERS: ATTEND Internal Medicine Hematology & Oncology
DX: C34.31 Malignant neoplasm of lower lobe, right bronchus or lung (principal); R91.8 Other nonspecific abnormal finding of lung field
CPT/HCPCS: 82565; 84520; 71260; 74177; Q9967

== ENCOUNTER → 2022-05-28 | Outpatient (CLI) | payer MEDICARE ==
--- NOTE | 2022-04-16 16:46 | P.PN ---
Progress Note - Text Progress Note Date: 04/16/22 I spoke with the patient today over the phone on 04/16/2022. The patient has run out of her Kenalog 0.1% cream which she uses for vulvar pruritus. She states that is helpful. A prescription for Kenalog 0.1% cream, 80 g tube and she is to apply this twice a day as needed for vulvar pruritus. She is to avoid over washing and avoid rubbing and scratching, if possible. The electronic prescription will be sent to [facility] pharmacy in [place] with no refills. She has an appointment to see me on 05/28/2022.
[2022-05-28 15:15] VITALS: BP 169/82; PULSE 91; RESP 18; TEMP 98.1
--- NOTE | 2022-05-28 15:30 | MM ---
Reason for Exam: Additional evaluation requested from prior study. Last screening mammogram was performed 12 month(s) ago. Indicated Problems: Pain of the left side (Global) for 1 Day(s). Patient History: Menarche at age 6. First Full-Term at age 16. Hysterectomy at age 38. Postmenopausal. Patient used Hormonal Contraceptives for 5 years. Patient used Estrogen and Progesterone for 10 years. Sister had breast cancer, age 50. Risk Values: Analilia 5 year model risk: 3.4%. NCI Lifetime model risk: 5.7%. Prior Study Comparison: 12/30/2013 Screening Mammogram, [facility]. 03/06/2015 Screening Mammogram, [facility]. 03/10/2015 Screening Mammogram, [facility]. 06/05/2021 Bilateral Screening Mammogram, [facility]. 06/11/2021 Left Diagnostic Mammogram, [facility]. Tissue Density: There are scattered fibroglandular densities. Findings: Analyzed By CAD. There are areas of coarse microcalcifications on both sides are redemonstrated. Benign vascular calcifications also present on both sides. A small area of grouped microcalcifications central upper inner quadrant left breast at a middle depth shows minimal interval increase compared to 06/05/2021. Overall appearance similar to other scattered calcifications. Benign etiology is suggested. This can be reassessed at a one-year follow-up. No specific abnormality seen along the lateral half of the left breast along the site of patient's pain. Overall Assessment: Probably benign, BI-RAD 3 Management: Diagnostic Mammogram of both breasts in 1 year. Further clinical management of patient's lateral left breast pain. Patient should continue monthly self breast exams. These results should not preclude additional follow-up of suspicious palpable abnormalities. Results were given to the patient verbally at the time of exam. Electronically signed and approved by: Pamela Kc M.D. Radiologist
--- NOTE | 2022-05-28 16:19 | P.HPOB ---
History of Present Illness H&P Date: 05/28/22 Chief Complaint: The patient is here for her routine gynecologic exam and ma mmogram. This is a 77-year-old with an LMP of 1983. She is status post vaginal hysterectomy for benign reasons. She continues to use Kenalog cream as needed for vulvar irritation. She states that it is helpful. She is otherwise without gynecologic complaints. Review of Systems She has lost about 4 pounds over the past year. Respiratory: She has noticed when she woke this morning some left chest discomfort with deep breaths. She was wondering if this could be related to her breast. The chest is slightly tender when she pushes near the axilla or in the area of the tail of the breast. She denies cardiac or GI problems. Past Medical History Past Medical History: Cancer, COPD, Diabetes Mellitus, Hyperlipidemia, H ypertension Additional Past Medical History / Comment(s): R LUNG CANCER 2016, type 2 diabetes requiring insulin, lumbar disc disease with previous lumbar laminectomy and discectomy. Osteoarthritis. Osteoporosis and she believes she took Fosamax for this in the past(?Length taken). 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 She did use HRT for 2 or 3 years in the past. History of Any Multi-Drug Resistant Organisms: None Reported Past Surgical History: Back Surgery, Bladder Surgery, Hysterectomy, Orthopedic Surgery Additional Past Surgical History / Comment(s): 12/01/14 Lumbar laminectomy with decompression L4-5, discectomy L4-L5. Surgical repair of a hiatal hernia for GE reflux, rt cataract, RT LUNG LOWER LOBECTOMY 2015. Vaginal hysterectomy 1983. Patient states she had a colonoscopy approximately in 2016. Past Anesthesia/Blood Transfusion Reactions: No Reported Reaction Additional Past Anesthesia/Blood Transfusion Reaction / Comment(s): Pt has never recieved blood. Past Psychological History: Anxiety Additional Psychological History / Comment(s): She is indepndent. She uses no assistive devices. She has no home care agency use. She drives a car. Smoking Status: Former smoker Past Alcohol Use History: None Reported Additional Past Alcohol Use History / Comment(s): Pt started smoking in 7 and quit in 1995 Past Drug Use History: None Reported Additional History: She has been a since 2014 and is not sexually active. She is retired. - Past Family History Mother Family Medical History: Diabetes Mellitus Additional Family Medical History / Comment(s): Heart disease. Father Family Medical History: No Reported History Sister(s) Family Medical History: Cancer, Diabetes Mellitus Additional Family Medical History / Comment(s): One sister had breast cancer and another sister had bone cancer. Multiple siblings have diabetes. Medications and Allergies Home Medications Medication Instructions Recorded Confirmed Type Cholecalciferol [Vitamin D3 (25 2,000 unit PO DAILY 11/21/14 05/28/22 History Mcg = 1000 Iu)] Insulin Glargine [Lantus Vial] 22 unit SQ HS 11/21/14 05/28/22 History Vitamin E (Dl,Tocopheryl Acet) 400 unit PO DAILY 11/21/14 05/28/22 History [Vitamin E (400 Iu = 180 mg)] INSULIN LISPRO (HumaLOG) [humaLOG] 8 unit SQ AC-BRKFST 05/27/16 05/28/22 History INSULIN LISPRO (HumaLOG) [humaLOG] 10 unit SQ AC-LUNCH 05/27/16 05/28/22 History INSULIN LISPRO (HumaLOG) [humaLOG] 14 unit SQ AC-SUPPER 05/27/16 05/28/22 History Pravastatin Sodium [Pravachol] 80 mg PO HS 06/16/17 05/28/22 History Acetaminophen/Diphenhydramine 1 tab PO HS 12/29/19 05/28/22 History [Tylenol PM 500-25mg] Folic Acid 1 mg PO DAILY 12/29/19 05/28/22 History hydrALAZINE HCL 50 mg PO BID 12/29/19 05/28/22 History Levothyroxine Sodium 100 mcg PO DAILY 06/28/20 05/28/22 History Pantoprazole [Protonix] 40 mg PO DAILY 06/28/20 05/28/22 History ondansetron HCL [Zofran] 4 mg PO Q8H PRN 06/28/20 05/28/22 History Triamcinolone 0.1% Cream [Kenalog 1 applicatio TOPICAL BID PRN #80 gm 04/16/22 Rx 0.1% Cream] Allergies Allergy/AdvReac Type Severity Reaction Status Date / Time adhesive Allergy Rash/Hives Verified 05/28/22 15:09 Exam Vital Signs Temp Pulse Resp BP Pulse Ox 05/28/22 15:13 98.1 F 91 18 169/82 98 Intake and Output 05/28/22 05/28/22 05/28/22 06:59 14:59 22:59 Other: Weight 68.039 kg Height 5 feet 6 inches, weight 150 pounds, BMI 24.2. This is a well-developed well-nourished white female who is alert and oriented times 3 in no acute distress. HEENT: Within normal limits. NECK: Supple without mass or thyromegaly. CHEST AND LUNGS: Clear to auscultation. There is mild tenderness near the left scapula and minimal tenderness near the tail of the left breast. This is similar to the discomfort that she has noticed with deep breaths today. HEART: Regular rate and rhythm. BREASTS: Are without mass or discharge. There is minimal tenderness to the tail of the left breast or the chest wall area in that area. AXILLARY EXAM: Negative for adenopathy. BACK: Negative for CVA tenderness. ABDOMEN: Soft, nontender, without palpable masses. PELVIC EXAM: Normal external genitalia with mild to moderate atrophy. There is minimal generalized erythema without focal lesions. There is no vulvar pallor or ulceration. Vagina appears normal with mild atrophy. There is no unusual discharge. There is no evidence of prolapse. Bimanual examination: There are no palpable adnexal masses or tenderness. RECTAL EXAM: Rectovaginal exam is negative for mass or tenderness and is negative for occult blood. EXTREMITIES: Nontender. IMPRESSION: 1. 77-year-old menopausal female status post vaginal hysterectomy for benign reasons with history of chronic vulvar irritation with minimal erythema noted on exam today. No evidence of lichen sclerosus or vulvar neoplasia. 2. History of osteoporosis. The patient tells me now that she believes she took Fosamax for an uncertain amount of time in the past through her previous PCP, Dr. Do. 3. Her last year mammogram did require a left breast workup and was felt to be probably benign. 6 month follow-up was recommended, but the patient states she did not have this done. PLAN: 1. Pap smears have been discontinued. 2. Self breast awareness was discussed with the patient. We have also discussed symptoms associated with inflammatory breast cancer. 3. Diagnostic bilateral mammogram was done today. 4. Osteoporosis management was discussed. I have stressed the importance of adequate calcium, vitamin D and regular exercise. Recommended amounts of calcium and vitamin D were also discussed.The patient will ask her current PCP, Dr. Humphries, how long she used Fosamax for. Dr. Humphries took the place of Dr. Do and she believes he should have the records for this. If she did use Fosamax for a significant amount of time and her bone density test next year is stable, we will continue to go without prescription medication for this. Her last bone density test was on 06/05/2021. We will plan on repeating bone density testing again in 1 year. 5. She has completed her Covid vaccination series and has received 2 boosters. 6. We have recommended that she use Tylenol or ibuprofen as directed for the discomfort she is noting in the upper chest region with deep breaths. If the discomfort persists, she was instructed to follow-up with her PCP. She states she does have regular CT scans of the lungs done because of her history of lung cancer. She denies any unusual coughing. 7. She was advised to return in one year for her annual well woman exam.
== END | disposition home or self-care (01) ==
LOC: RADMAMWWP 13:53
PROVIDERS: ATTEND Obstetrics & Gynecology
DX: R92.8 Other abnormal and inconclusive findings on diagnostic imaging of breast (principal); I10 Essential (primary) hypertension; E78.5 Hyperlipidemia, unspecified; E11.36 Type 2 diabetes mellitus with diabetic cataract; Z78.0 Asymptomatic menopausal state
CPT/HCPCS: 77066; G0279; 77062

== ENCOUNTER 2022-06-04 13:24 | Emergency (ER) | payer MEDICARE ==
[2022-06-04 13:35] VITALS: TEMP 98
[2022-06-04 13:54] LABS: Basophils % (A) 1 %; Eosinophils # (A) 0.1 k/uL (0-0.7); Eosinophils % (A) 1 %; HCT 41.1 % (34.0-46.0); HGB 13.6 gm/dL (11.4-16.0); Lymphocytes # (A) 0.8 k/uL (1.0-4.8); Lymphocytes % (A) 11 %; MCHC 33.2 g/dL (31.0-37.0); MCV 90.5 fL (80.0-100.0); Mean Platelet Volume 7.3; Monocytes # (A) 0.5 k/uL (0-1.0); Monocytes % (A) 7 %; Neutrophils # (A) 5.6 k/uL (1.3-7.7); Neutrophils % (A) 78 %; Platelet Count 274 k/uL (150-450); RBC 4.54 m/uL (3.80-5.40); RDW 13.9 % (11.5-15.5); WBC 7.2 k/uL (3.8-10.6)
[2022-06-04 14:10] LABS: INR 0.9 (<1.2); Partial Thromboplastin Time 25.6 sec (22.0-30.0); Prothrombin Time 9.8 sec (9.0-12.0)
[2022-06-04 14:16] LABS: Albumin 4.3 g/dL (3.5-5.0); Magnesium 2.1 mg/dL (1.6-2.3); Total Bilirubin 0.4 mg/dL (0.2-1.3); Total Protein 7.1 g/dL (6.3-8.2)
--- NOTE | 2022-06-04 15:44 | XR ---
EXAMINATION TYPE: XR chest 2V DATE OF EXAM: 06/04/2022 COMPARISON: Prior CT February 04, 2022 HISTORY: Chest pain. History of lung cancer. TECHNIQUE: Frontal and lateral views of the chest are obtained. FINDINGS: Mild underlying emphysematous change with small bilateral pleural effusions is now present . The cardiac silhouette size is stable and within normal limits without atherosclerotic thoracic ao rta. The osseous structures are intact. IMPRESSION: Mild chronic emphysematous change with small bilateral pleural effusions on current stud y.
[2022-06-04] MEDS ORDERED: KETOROLAC 15 MG/ML 1 ML VIAL IVP STA (16:38)
[2022-06-04] MEDS ORDERED: ASPIRIN 81 MG PO STA (16:38)
[2022-06-04] MEDS ORDERED: LIDOCAINE 5% PATCH TOPICAL SCH (17:00)
[2022-06-04 17:20] VITALS: RESP 18
--- NOTE | 2022-06-04 17:30 | ED ---
General Adult HPI - General Chief complaint: Chest Pain Stated complaint: chest pain Time Seen by Provider: 06/04/22 16:22 Source: patient, RN notes reviewed, old records reviewed Mode of arrival: ambulatory Limitations: no limitations - History of Present Illness Initial comments: Patient is a 77-year-old female with past medical history remarkable for COPD, diabetes, cancer, hypertension who presents emergency Department complaining of atypical back and side pain. Chief complaint states chest pain, however still patient states that for the last 1 week she has noticed some posterior left sided back pain that radiates towards her left arm. Patient states also runs down her left arm. Denies any neck injury. States the pain comes and goes with no palliative or provocative factors. Describes a sharp, achy pain. It is worse with movement. Denies any nausea, vomiting, abdominal pain, anterior chest pain, shortness of breath. States the pain is worse sometimes with deep inspiration. Has no history of blood clots. Denies any lower extremity swelling. Presents for further evaluation at this time. - Related Data Home Medications Medication Instructions Recorded Confirmed Cholecalciferol [Vitamin D3 (25 2,000 unit PO DAILY 11/21/14 05/28/22 Mcg = 1000 Iu)] Insulin Glargine [Lantus Vial] 22 unit SQ HS 11/21/14 05/28/22 Vitamin E (Dl,Tocopheryl Acet) 400 unit PO DAILY 11/21/14 05/28/22 [Vitamin E (400 Iu = 180 mg)] INSULIN LISPRO (HumaLOG) [humaLOG] 8 unit SQ AC-BRKFST 05/27/16 05/28/22 INSULIN LISPRO (HumaLOG) [humaLOG] 10 unit SQ AC-LUNCH 05/27/16 05/28/22 INSULIN LISPRO (HumaLOG) [humaLOG] 14 unit SQ AC-SUPPER 05/27/16 05/28/22 Pravastatin Sodium [Pravachol] 80 mg PO HS 06/16/17 05/28/22 Acetaminophen/Diphenhydramine 1 tab PO HS 12/29/19 05/28/22 [Tylenol PM 500-25mg] Folic Acid 1 mg PO DAILY 12/29/19 05/28/22 hydrALAZINE HCL 50 mg PO BID 12/29/19 05/28/22 Levothyroxine Sodium 100 mcg PO DAILY 06/28/20 05/28/22 Pantoprazole [Protonix] 40 mg PO DAILY 06/28/20 05/28/22 ondansetron HCL [Zofran] 4 mg PO Q8H PRN 06/28/20 05/28/22 Previous Rx's Medication Instructions Recorded Triamcinolone 0.1% Cream [Kenalog 1 applicatio TOPICAL BID PRN #30 gm 05/28/22 0.1% Cream] Allergies Allergy/AdvReac Type Severity Reaction Status Date / Time adhesive Allergy Rash/Hives Verified 06/04/22 13:35 Review of Systems ROS Statement: Those systems with pertinent positive or pertinent negative responses have been documented in the HPI. Review of Systems: CONST: Denies fever EYES: Denies blurry vision ENT: Denies nasal congestion C/V: Denies Chest pain RESP: Denies shortness of breath GI: Denies abdominal pain : Denies dysuria SKIN: Denies rash. MSK: Endorses back pain NEURO: Denies headache ROS Other: All systems not noted in ROS Statement are negative. Past Medical History Past Medical History: Cancer, COPD, Diabetes Mellitus, Hyperlipidemia, Hyp ertension Additional Past Medical History / Comment(s): R LUNG CANCER 2016, type 2 diabetes requiring insulin, lumbar disc disease with previous lumbar laminectomy and discectomy. Osteoarthritis. Osteoporosis and she believes she took Fosamax for this in the past(?Length taken). 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 She did use HRT for 2 or 3 years in the past. History of Any Multi-Drug Resistant Organisms: None Reported Past Surgical History: Back Surgery, Bladder Surgery, Hysterectomy, Orthopedic Surgery Additional Past Surgical History / Comment(s): 12/01/14 Lumbar laminectomy with decompression L4-5, discectomy L4-L5. Surgical repair of a hiatal hernia for GE reflux, rt cataract, RT LUNG LOWER LOBECTOMY 2015. Vaginal hysterectomy 1983. Patient states she had a colonoscopy approximately in 2015. Past Anesthesia/Blood Transfusion Reactions: No Reported Reaction Additional Past Anesthesia/Blood Transfusion Reaction / Comment(s): Pt has never recieved blood. Past Psychological History: Anxiety Smoking Status: Former smoker Past Alcohol Use History: None Reported Past Drug Use History: None Reported - Past Family History Mother Family Medical History: Diabetes Mellitus Additional Family Medical History / Comment(s): Heart disease. Father Family Medical History: No Reported History Sister(s) Family Medical History: Cancer, Diabetes Mellitus Additional Family Medical History / Comment(s): One sister had breast cancer and another sister had bone cancer. Multiple siblings have diabetes. General Exam - General Exam Comments Initial Comments: General: Appears in no acute distress. HEAD: Normal with no signs of head trauma. EYES: PERRLA, EOMI, conjunctiva normal, no discharge. ENT: Hearing grossly intact, normal oropharynx. RESPIRATORY: Clear breath sounds bilaterally. No wheezes, rales, or rhonchi. C/V: Regular rate and rhythm. S1 and S2 auscultated, no edema, peripheral pulses 2+ and intact throughout ABD: Abd is soft, nontender, nondistended EXT: Normal range of motion, no obvious deformity. Patient does have palpable tenderness located over the left trapezius muscle that radiates from the left side of the neck towards the left shoulder and her left armpit. Seems to be worse with motion. No midline cervical or thoracic spinal tenderness palpation. Does have some nonpalpable pain located more in the anterior axillary line. SKIN: No rashes or lesions observed on exposed skin. NEURO: Alert and oriented 4. No focal deficits. Limitations: no limitations Course Vital Signs 06/04/22 06/04/22 06/04/22 13:31 17:19 20:28 Temperature 98 F Pulse Rate 92 84 85 Respiratory 20 18 18 Rate Blood Pressure 152/80 164/78 171/73 O2 Sat by Pulse 98 95 95 Oximetry Medical Decision Making - Medical Decision Making Based on the patient's presentation and physical exam, she does present with pal pable thoracic wall pain. However she does have some pleurisy with it as well as some nonpalpable pain and located in the anterior axillary line. Cannot definitely rule out cardiac causes such as [place], pneumothorax, musculoskeletal strain at this time. Low risk for PE at this time as well. However I did recommend that we screen her for all the above. She was in agreement this plan. I value the patient after initial labs returned, and they were all within acceptable limits. This includes a nondetectable troponin. We will add on a d- dimer and a second troponin at 3 hour fatoumata. EKG showed no signs of acute ischemia. Chest x-ray revealed no acute cardio pulmonary process. Patient does have bilateral small pleural effusions. These are unlikely contributory to her current symptoms. She will be given an aspirin, Toradol injection, as well as lidocaine patch. She was in agreement this plan. Vital signs are within acceptable limits. There was a long delay in obtaining a d-dimer. The initial specimen was clotted. Patient's second troponin was undetectable. D-dimer returned elevated at 2.6. A for did recommend that we obtain a CT angiogram. She was in agreement this plan. CT angiogram of the chest rule out PE as interpreted by myself reveals no evidence of PE. Patient does appear to have a left sided pulmonary nodule. Radiology was also concerned for nodular thickening along the medial pleura which could be related to malignancy. No other findings. On reevaluation, patient feels improved. I did update her on the results of her CT. I recommended that she follow up with her oncologist as well as her PCP to further evaluate her pulmonary nodule as she does have a history of lung cancer. She was in agreement with this plan. I answered all questions that she had. Strict return precautions were discussed. Patient follows up with Dr. Oquendo. I instructed the patient to follow up with their PCP in the next 1-3 days. I explained that the patient should return to the emergency department if they experience any worsening symptoms. Strict return precautions were discussed with the patient. The patient expressed understanding of these instructions. I answered all questions that the patient had. The patient was discharged home in good condition with their prescriptions and follow up information. - Lab Data Result diagrams: 06/04/22 13:46 06/04/22 13:46 Lab Results 06/04/22 06/04/22 06/04/22 Range/Units 13:46 13:46 13:46 WBC 7.2 (3.8-10.6) k/uL RBC 4.54 (3.80-5.40) m/uL Hgb 13.6 (11.4-16.0) gm/dL Hct 41.1 (34.0-46.0) % MCV 90.5 (80.0-100.0) fL MCH 30.0 (25.0-35.0) pg MCHC 33.2 (31.0-37.0) g/dL RDW 13.9 (11.5-15.5) % Plt Count 274 (150-450) k/uL MPV 7.3 Neutrophils % 78 % Lymphocytes % 11 % Monocytes % 7 % Eosinophils % 1 % Basophils % 1 % Neutrophils # 5.6 (1.3-7.7) k/uL Lymphocytes # 0.8 L (1.0-4.8) k/uL Monocytes # 0.5 (0-1.0) k/uL Eosinophils # 0.1 (0-0.7) k/uL Basophils # 0.0 (0-0.2) k/uL PT 9.8 (9.0-12.0) sec INR 0.9 (<1.2) APTT 25.6 (22.0-30.0) sec D-Dimer (<0.60) mg/L FEU Sodium 140 (137-145) mmol/L Potassium 4.0 (3.5-5.1) mmol/L Chloride 103 (98-107) mmol/L Carbon Dioxide 28 (22-30) mmol/L Anion Gap 9 mmol/L BUN 20 H (7-17) mg/dL Creatinine 0.80 (0.52-1.04) mg/dL Est GFR (CKD-EPI)AfAm 81 (>60 ml/min/1.73 sqM) Est GFR (CKD-EPI)NonAf 71 (>60 ml/min/1.73 sqM) Glucose 89 (74-99) mg/dL Calcium 9.0 (8.4-10.2) mg/dL Magnesium 2.1 (1.6-2.3) mg/dL Total Bilirubin 0.4 (0.2-1.3) mg/dL AST 23 (14-36) U/L ALT 18 (4-34) U/L Alkaline Phosphatase 89 (38-126) U/L Troponin I (0.000-0.034) ng/mL Total Protein 7.1 (6.3-8.2) g/dL Albumin 4.3 (3.5-5.0) g/dL 06/04/22 06/04/22 06/04/22 Range/Units 13:46 17:09 18:10 WBC (3.8-10.6) k/uL RBC (3.80-5.40) m/uL Hgb (11.4-16.0) gm/dL Hct (34.0-46.0) % MCV (80.0-100.0) fL MCH (25.0-35.0) pg MCHC (31.0-37.0) g/dL RDW (11.5-15.5) % Plt Count (150-450) k/uL MPV Neutrophils % % Lymphocytes % % Monocytes % % Eosinophils % % Basophils % % Neutrophils # (1.3-7.7) k/uL Lymphocytes # (1.0-4.8) k/uL Monocytes # (0-1.0) k/uL Eosinophils # (0-0.7) k/uL Basophils # (0-0.2) k/uL PT (9.0-12.0) sec INR (<1.2) APTT (22.0-30.0) sec D-Dimer 2.60 H (<0.60) mg/L FEU Sodium (137-145) mmol/L Potassium (3.5-5.1) mmol/L Chloride (98-107) mmol/L Carbon Dioxide (22-30) mmol/L Anion Gap mmol/L BUN (7-17) mg/dL Creatinine (0.52-1.04) mg/dL Est GFR (CKD-EPI)AfAm (>60 ml/min/1.73 sqM) Est GFR (CKD-EPI)NonAf (>60 ml/min/1.73 sqM) Glucose (74-99) mg/dL Calcium (8.4-10.2) mg/dL Magnesium (1.6-2.3) mg/dL Total Bilirubin (0.2-1.3) mg/dL AST (14-36) U/L ALT (4-34) U/L Alkaline Phosphatase (38-126) U/L Troponin I <0.012 <0.012 (0.000-0.034) ng/mL Total Protein (6.3-8.2) g/dL Albumin (3.5-5.0) g/dL - EKG Data -: EKG Interpreted by Me EKG Comments: 12-lead Electrocardiogram Interpretation Note EKG was reviewed and interpreted by myself. 12-lead ECG performed at 1337 is interpreted by me as revealing normal sinus rhythm at a rate of 87 beats per minute. Dennis is normal. TN interval is 177 ms, QRS duration is 81 ms, QTc is or 400 ms.. There is an isolated T-wave inversion in lead aVL with no reciprocal changes. No other ST segment or T-wave abnormality to suggest acute ischemia.. R wave progression across the precordium was satisfactory. By my interpretation this EKG is non-diagnostic for acute ischemia. No prior EKG for comparison. Disposition Clinical Impression: Chest wall pain, Pulmonary nodule Disposition: HOME SELF-CARE Condition: Good Instructions (If sedation given, give patient instructions): Chest Pain (ED) Additional Instructions: Follow up with your oncologist to discuss the pulmonary nodule/pleural thickening. Is patient prescribed a controlled substance at d/c from ED?: No Referrals: Isael Humphries MD [Primary Care Provider] - 1-2 days Time of Disposition: 20:00
--- NOTE | 2022-06-04 20:07 | CT ---
EXAMINATION TYPE: CT chest angio for PE CT DLP: 253.2 mGycm, Automated exposure control for dose reduction was used. DATE OF EXAM: 06/04/2022 7:24 PM COMPARISON: CT chest 02/04/2022 CLINICAL INDICATION:Female, 77 years old with history of elevated timer, concern for pe; Elevated D-d zee TECHNIQUE/CONTRAST: CTA scan of the thorax is performed with IV Contrast, patient injected with 100cc mL of Isovue 370, p ulmonary embolism protocol. MIP images are created and reviewed. FINDINGS: Pulmonary Artery: There is no evidence for a filling defect within the pulmonary vasculature to sugge st acute pulmonary embolism. The pulmonary artery is of normal size. Postsurgical changes to the rig ht lung. Lungs/Pleura: Small left pleural effusion associated atelectasis. Somewhat nodular thickening to the medial aspect of the right upper lung pleura (series 401 image 69) measuring up to 11 mm. The atelect asis in the left lung base that demonstrates area of lower density possibly lung nodule measuring 14 mm series 401 image 117. Airway: Large airways are patent. Heart: Heart is mildly enlarged for size. Coronary artery atherosclerosis is present. Vasculature: No evidence of aortic aneurysm. Mediastinum: No gross evidence of adenopathy. Musculoskeletal: No acute osseous abnormalities Soft Tissues: Unremarkable. Lower neck: No significant findings. Upper Abdomen: No significant findings. IMPRESSION: 1. No evidence of pulmonary embolism. 2. New Small left pleural effusion with associated atelectasis. There is nodular area of thickening a long the left upper lobe medial pleura and a nodule in the left lower lobe which are concerning for m etastatic disease given history of malignancy. The area in the left lower lobe correlates with prior pulmonary nodule. Pleural thickening not on prior on definitively seen on 02/04/2022.
[2022-06-04 20:29] VITALS: BP 171/73; PULSE 85
== END 2022-06-04 20:36 | disposition home or self-care (01) ==
LOC: EC 13:24
DX: R91.1 Solitary pulmonary nodule (principal); J44.9 Chronic obstructive pulmonary disease, unspecified; E11.9 Type 2 diabetes mellitus without complications; I10 Essential (primary) hypertension; E78.5 Hyperlipidemia, unspecified; F41.9 Anxiety disorder, unspecified; Z79.4 Long term (current) use of insulin; Z87.891 Personal history of nicotine dependence; Z79.899 Other long term (current) drug therapy
CPT/HCPCS: 36415; 93005; 85379; 80053; 83735; 84484; 85025; 85610; 85730; 71046; 71275; 99285; 96374; J1885; Q9967

== ENCOUNTER → 2022-06-21 | Outpatient (CLI) | payer MEDICARE ==
--- NOTE | 2022-06-23 13:35 | PE ---
EXAMINATION TYPE: PET CT fusion skull to thigh DATE OF EXAM: 06/21/2022 CLINICAL INDICATION:Female, 77 years old with history of Lung Ca C34.31; TECHNIQUE: Following the intravenous administration of 12.4 mCi of F-18 FDG, whole body images are performed from the skull base to the midthigh. Images are reviewed on the computer in the coronal, a xial, and sagittal planes. Reconstructed rotating images are created on independent workstation and reviewed on the computer. A non-contrast CT is performed in conjunction with the PET scan. Glucose level 110 mg/dL COMPARISON: CT 02/04/2022, CT chest 06/04/2022, PET/CT 11/08/2017. FINDINGS: Mediastinal SUV mean is 2.0. Hepatic parenchyma SUV mean is 2.6. SKULL BASE AND NECK: No suspicious radiotracer activity. CHEST, MEDIASTINUM, AND HILAR REGION: Multiple areas along the pleura with increased FDG activity. Some of the lesions are hard to measure without IV contrast Examples include: * Posterior to the aorta 1.8 x 1.8 cm max SUV 5.8. * Lateral pleural uptake max SUV 3.8. * Anterior pleural uptake max 3.8. * Inferior aspect of the lung which is likely in the pleura also maximum SUV 4.3. * Medial near the diaphragm measuring 1.5 x 1.2 cm max SUV 4.8. ABDOMEN AND PELVIS: No suspicious radiotracer activity. OSSEOUS STRUCTURES: No suspicious radiotracer activity. OTHER CT: Bilateral aphakia. Atherosclerosis of the carotid bifurcations, arterial vasculature and co ronary arteries. Remote right-sided rib fracture noted. IMPRESSION: 1. Multiple areas metabolic activity along the left pulmonary pleura concerning for pleural metastat ic disease with associated malignant pleural effusion. 2. No additional evidence for metastatic disease.
== END | disposition home or self-care (01) ==
LOC: RADPETMAIN 16:51
PROVIDERS: ATTEND Internal Medicine Hematology & Oncology
DX: C34.31 Malignant neoplasm of lower lobe, right bronchus or lung (principal)
CPT/HCPCS: 78815; A9552

== ENCOUNTER 2022-06-25 13:59 | Observation (INO) | payer MEDICARE ==
--- NOTE | 2022-06-25 15:01 | ED ---
SOB HPI - General Chief Complaint: Shortness of Breath Stated Complaint: SOB, pneumonia, lung cancer patient Time Seen by Provider: 06/25/22 14:37 Source: patient, family, RN notes reviewed Mode of arrival: wheelchair Limitations: no limitations - History of Present Illness Initial Comments: This a 77-year-old female presents emergency Department chief complaint of dyspnea. Patient states that has been progressive last few weeks worsening, exertional dyspnea. Patient states she had a PET scan on Friday, she has recurrent lung cancer. Patient states she is followed by Dr. Oquendo oncology. Patient states that she feels shortness of breath. Around she feels like she did not pass out she does complain of some left-sided chest discomfort. Patient reports productive cough, white sputum. Denies any recent sick contacts. - Related Data Home Medications Medication Instructions Recorded Confirmed Cholecalciferol [Vitamin D3 (25 2,000 unit PO DAILY 11/21/14 05/28/22 Mcg = 1000 Iu)] Insulin Glargine [Lantus Vial] 22 unit SQ HS 11/21/14 05/28/22 Vitamin E (Dl,Tocopheryl Acet) 400 unit PO DAILY 11/21/14 05/28/22 [Vitamin E (400 Iu = 180 mg)] INSULIN LISPRO (HumaLOG) [humaLOG] 8 unit SQ AC-BRKFST 05/27/16 05/28/22 INSULIN LISPRO (HumaLOG) [humaLOG] 10 unit SQ AC-LUNCH 05/27/16 05/28/22 INSULIN LISPRO (HumaLOG) [humaLOG] 14 unit SQ AC-SUPPER 05/27/16 05/28/22 Pravastatin Sodium [Pravachol] 80 mg PO HS 06/16/17 05/28/22 Acetaminophen/Diphenhydramine 1 tab PO HS 12/29/19 05/28/22 [Tylenol PM 500-25mg] Folic Acid 1 mg PO DAILY 12/29/19 05/28/22 hydrALAZINE HCL 50 mg PO BID 12/29/19 05/28/22 Levothyroxine Sodium 100 mcg PO DAILY 06/28/20 05/28/22 Pantoprazole [Protonix] 40 mg PO DAILY 06/28/20 05/28/22 ondansetron HCL [Zofran] 4 mg PO Q8H PRN 06/28/20 05/28/22 Previous Rx's Medication Instructions Recorded Triamcinolone 0.1% Cream [Kenalog 1 applicatio TOPICAL BID PRN #30 gm 05/28/22 0.1% Cream] Allergies Allergy/AdvReac Type Severity Reaction Status Date / Time adhesive Allergy Rash/Hives Verified 06/25/22 15:48 Review of Systems ROS Statement: Those systems with pertinent positive or pertinent negative responses have been documented in the HPI. ROS Other: All systems not noted in ROS Statement are negative. Past Medical History Past Medical History: Cancer, COPD, Diabetes Mellitus, Hyperlipidemia, Hypertension Additional Past Medical History / Comment(s): R LUNG CANCER 2016, type 2 diabetes requiring insulin, lumbar disc disease with previous lumbar laminectomy and discectomy. Osteoarthritis. Osteoporosis and she believes she took Fosamax for this in the past(?Length taken). 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 She did use HRT for 2 or 3 years in the past. History of Any Multi-Drug Resistant Organisms: None Reported Past Surgical History: Back Surgery, Bladder Surgery, Hysterectomy, Orthopedic Surgery Additional Past Surgical History / Comment(s): 12/01/14 Lumbar laminectomy with decompression L4-5, discectomy L4-L5. Surgical repair of a hiatal hernia for GE reflux, rt cataract, RT LUNG LOWER LOBECTOMY 2015. Vaginal hysterectomy 1983. Patient states she had a colonoscopy approximately in 2015. Past Anesthesia/Blood Transfusion Reactions: No Reported Reaction Additional Past Anesthesia/Blood Transfusion Reaction / Comment(s): Pt has never recieved blood. Past Psychological History: Anxiety Smoking Status: Former smoker Past Alcohol Use History: None Reported Past Drug Use History: None Reported - Past Family History Mother Family Medical History: Diabetes Mellitus Additional Family Medical History / Comment(s): Heart disease. Father Family Medical History: No Reported History Sister(s) Family Medical History: Cancer, Diabetes Mellitus Additional Family Medical History / Comment(s): One sister had breast cancer and another sister had bone cancer. Multiple siblings have diabetes. General Exam Limitations: no limitations General appearance: alert, in no apparent distress Head exam: Present: atraumatic, normocephalic, normal inspection Eye exam: Present: normal appearance, PERRL, EOMI. Absent: scleral icterus, conjunctival injection, periorbital swelling ENT exam: Present: normal exam, normal oropharynx, mucous membranes moist Neck exam: Present: normal inspection, full ROM. Absent: tenderness, meningismus, lymphadenopathy Respiratory exam: Present: decreased breath sounds. Absent: normal lung sounds bilaterally, respiratory distress, wheezes, rales, rhonchi, stridor Cardiovascular Exam: Present: regular rate, normal rhythm, normal heart sounds. Absent: systolic murmur, diastolic murmur, rubs, gallop, clicks Neurological exam: Present: alert Skin exam: Present: warm, dry, intact, normal color. Absent: rash Course Vital Signs 06/25/22 14:07 Temperature 97 F L Pulse Rate 99 Respiratory 24 Rate Blood Pressure 123/61 O2 Sat by Pulse 97 Oximetry Medical Decision Making - Medical Decision Making 77-year-old female presented for dyspnea. Patient's chest x-ray interpreted by me large pleural effusion on the left. Patient's PET scan was reviewed patient does have recurrent lung cancer. Patient's case discussed with Dr. jimenez accepts admission with consult to oncology, pulmonary. - Lab Data Result diagrams: 06/25/22 14:56 06/25/22 14:56 Lab Results 06/25/22 06/25/22 06/25/22 Range/Units 14:56 14:56 14:56 WBC 10.4 (3.8-10.6) k/uL RBC 4.58 (3.80-5.40) m/uL Hgb 13.4 (11.4-16.0) gm/dL Hct 39.9 (34.0-46.0) % MCV 87.1 (80.0-100.0) fL MCH 29.2 (25.0-35.0) pg MCHC 33.5 (31.0-37.0) g/dL RDW 13.4 (11.5-15.5) % Plt Count 451 H (150-450) k/uL MPV 7.2 Neutrophils % 85 % Lymphocytes % 6 % Monocytes % 7 % Eosinophils % 0 % Basophils % 0 % Neutrophils # 8.8 H (1.3-7.7) k/uL Lymphocytes # 0.7 L (1.0-4.8) k/uL Monocytes # 0.7 (0-1.0) k/uL Eosinophils # 0.0 (0-0.7) k/uL Basophils # 0.0 (0-0.2) k/uL PT 10.2 (9.0-12.0) sec INR 1.0 (<1.2) APTT 25.7 (22.0-30.0) sec Sodium 136 L (137-145) mmol/L Potassium 3.8 (3.5-5.1) mmol/L Chloride 99 (98-107) mmol/L Carbon Dioxide 23 (22-30) mmol/L Anion Gap 14 mmol/L BUN 17 (7-17) mg/dL Creatinine 0.87 (0.52-1.04) mg/dL Est GFR (CKD-EPI)AfAm 73 (>60 ml/min/1.73 sqM) Est GFR (CKD-EPI)NonAf 64 (>60 ml/min/1.73 sqM) Glucose 229 H (74-99) mg/dL Plasma Lactic Acid Gordo (0.7-2.0) mmol/L Calcium 9.3 (8.4-10.2) mg/dL Magnesium 2.0 (1.6-2.3) mg/dL Total Bilirubin 0.7 (0.2-1.3) mg/dL AST 36 (14-36) U/L ALT 27 (4-34) U/L Alkaline Phosphatase 110 (38-126) U/L NT-Pro-B Natriuret Pep pg/mL Total Protein 6.9 (6.3-8.2) g/dL Albumin 3.8 (3.5-5.0) g/dL 06/25/22 06/25/22 Range/Units 14:56 14:56 WBC (3.8-10.6) k/uL RBC (3.80-5.40) m/uL Hgb (11.4-16.0) gm/dL Hct (34.0-46.0) % MCV (80.0-100.0) fL MCH (25.0-35.0) pg MCHC (31.0-37.0) g/dL RDW (11.5-15.5) % Plt Count (150-450) k/uL MPV Neutrophils % % Lymphocytes % % Monocytes % % Eosinophils % % Basophils % % Neutrophils # (1.3-7.7) k/uL Lymphocytes # (1.0-4.8) k/uL Monocytes # (0-1.0) k/uL Eosinophils # (0-0.7) k/uL Basophils # (0-0.2) k/uL PT (9.0-12.0) sec INR (<1.2) APTT (22.0-30.0) sec Sodium (137-145) mmol/L Potassium (3.5-5.1) mmol/L Chloride (98-107) mmol/L Carbon Dioxide (22-30) mmol/L Anion Gap mmol/L BUN (7-17) mg/dL Creatinine (0.52-1.04) mg/dL Est GFR (CKD-EPI)AfAm (>60 ml/min/1.73 sqM) Est GFR (CKD-EPI)NonAf (>60 ml/min/1.73 sqM) Glucose (74-99) mg/dL Plasma Lactic Acid Gordo 1.6 (0.7-2.0) mmol/L Calcium (8.4-10.2) mg/dL Magnesium (1.6-2.3) mg/dL Total Bilirubin (0.2-1.3) mg/dL AST (14-36) U/L ALT (4-34) U/L Alkaline Phosphatase (38-126) U/L NT-Pro-B Natriuret Pep 207 pg/mL Total Protein (6.3-8.2) g/dL Albumin (3.5-5.0) g/dL - EKG Data -: EKG Interpreted by Vt EKG Comments: EKG performed at 14:36 sinus rhythm rate of 89 LA 150 QRS 86 QT/QTC 371/417 Disposition Clinical Impression: Lung cancer, Large pleural effusion, Exertional dyspnea Disposition: ADMITTED IP TO THIS HOSP Condition: Fair Referrals: Isael Humphries MD [Primary Care Provider] - 1-2 days Time of Disposition: 15:32
[2022-06-25 15:09] LABS: Basophils % (A) 0 %; Eosinophils % (A) 0 %; HCT 39.9 % (34.0-46.0); HGB 13.4 gm/dL (11.4-16.0); Lymphocytes # (A) 0.7 k/uL (1.0-4.8); Lymphocytes % (A) 6 %; MCH 29.2 pg (25.0-35.0); MCHC 33.5 g/dL (31.0-37.0); MCV 87.1 fL (80.0-100.0); Mean Platelet Volume 7.2; Monocytes # (A) 0.7 k/uL (0-1.0); Monocytes % (A) 7 %; Neutrophils # (A) 8.8 k/uL (1.3-7.7); Neutrophils % (A) 85 %; Platelet Count 451 k/uL (150-450); RBC 4.58 m/uL (3.80-5.40); RDW 13.4 % (11.5-15.5); WBC 10.4 k/uL (3.8-10.6)
[2022-06-25 15:20] LABS: Partial Thromboplastin Time 25.7 sec (22.0-30.0); Prothrombin Time 10.2 sec (9.0-12.0)
--- NOTE | 2022-06-25 15:28 | XR ---
EXAMINATION TYPE: XR chest 2V DATE OF EXAM: 06/25/2022 COMPARISON: 06/04/2022 HISTORY: Shortness of breath TECHNIQUE: Frontal and lateral views of the chest are obtained. FINDINGS: Scattered senescent parenchymal changes noted. Hyperinflation compatible with COPD. Increasing left lower lobe effusion. Underlying atelectasis, infiltrate or mass is not excluded. Smal l right-sided effusion noted. Appropriate follow-up advised. Heart size is stable. Mediastinal structures are stable and grossly unremarkable. No evidence for hilar prominence. Degenerative changes dorsal spine. IMPRESSION: 1. Increasing left lower lobe effusion. Underlying atelectasis, infiltrate or mass is not excluded.
[2022-06-25] MEDS ORDERED: ACETAMINOPHEN TAB 325 MG TAB PO PRN (15:32)
[2022-06-25] MEDS ORDERED: NALOXONE 0.4 MG/ML 1 ML VIAL IV PRN (15:32)
[2022-06-25 15:39] LABS: Albumin 3.8 g/dL (3.5-5.0); Calcium 9.3 mg/dL (8.4-10.2); Potassium 3.8 mmol/L (3.5-5.1); Total Bilirubin 0.7 mg/dL (0.2-1.3); Total Protein 6.9 g/dL (6.3-8.2)
[2022-06-25 17:08] LABS: Glucose,Whole Blood 168 mg/dL (70-110)
[2022-06-25] MEDS ORDERED: diphenhydrAMINE 25 MG CAP PO PRN (18:04)
[2022-06-25] MEDS ORDERED: ALBUTEROL NEBULIZED 2.5 MG/3 ML INHALATION PRN (18:05)
[2022-06-25] MEDS: LEVOTHYROXINE 75 MCG TAB PO SCH (18:12)
[2022-06-25] MEDS ORDERED: INSULIN ASPART (NovoLOG) 100 UNIT/ML VIAL SQ SCH (18:30)
[2022-06-25] MEDS ORDERED: MORPHINE SULFATE 4 MG/ML SYRINGE IVP PRN (19:00)
--- NOTE | 2022-06-25 19:03 | P.HPIM ---
History of Present Illness this is a pleasant [age] soft female with past medical history including multiple medical problems including history of lung cancersince 2016 and she follow up with Dr. Huang outpatient setting and she's getting so far 3 cycles of chemotherapy, she is status post right lower lobe resection She presents because of dyspnea about one month and duration associated with minimal or no cough Patient also denies chest pain she has little pain on her left shoulder blade. She denies GI or urinary symptoms, no abdominal pain vomiting or diarrhea, no dysuria or urgency. No headache or dizziness or weakness or numbness. She quit Smoking in 1996. No alcohol or illicit drugs Vitals his stable EKG normal sinus rhythm at [address] T changes Labs reviewed: Unremarkable CBC, INR, BMP and liver enzymes. She has an detected fibrosis, influenza, RSV and a valderrama virus Chest x-ray: Increasing left lower lobe effusion. Underlying atelectasis, infiltrate or mass is not excluded She was admitted with oncology and pulmonary team consult. Review of Systems Review of systems CONSTITUTIONAL: No fever, no malaise, no fatigue. HEENT: No recent visual problems or hearing problems. Denied any sore throat. CARDIOVASCULAR: No orthopnea, PND, no palpitations, no syncope. PULMONARY: No chest wall tenderness, no hemoptysis. GASTROINTESTINAL: No diarrhea, no nausea, no vomiting, no abdominal pain. Normoactive bowel sounds. NEUROLOGICAL: No headaches, no weakness, no numbness. HEMATOLOGICAL: Denies any bleeding or petechiae. GENITOURINARY: Denies any burning micturition, frequency, or urgency. MUSCULOSKELETAL/RHEUMATOLOGICAL: Denies any joint pain, swelling, or any muscle pain. ENDOCRINE: Denies any polyuria or polydipsia. Past Medical History Past Medical History: Cancer, COPD, Diabetes Mellitus, Hyperlipidemia, Hy pertension Additional Past Medical History / Comment(s): R LUNG CANCER 2016, type 2 diabetes requiring insulin, lumbar disc disease with previous lumbar laminectomy and discectomy. Osteoarthritis. Osteoporosis and she believes she took Fosamax for this in the past(?Length taken). 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 She did use HRT for 2 or 3 years in the past. pt recently told that her lung cancer is back. recent pet scan done on friday06/21/22. History of Any Multi-Drug Resistant Organisms: None Reported Past Surgical History: Back Surgery, Bladder Surgery, Hysterectomy, Orthopedic Surgery Additional Past Surgical History / Comment(s): 12/01/14 Lumbar laminectomy with decompression L4-5, discectomy L4-L5. Surgical repair of a hiatal hernia for GE reflux, rt cataract, RT LUNG LOWER LOBECTOMY 2015. Vaginal hysterectomy 1983. Patient states she had a colonoscopy approximately in 2016. Past Anesthesia/Blood Transfusion Reactions: No Reported Reaction Additional Past Anesthesia/Blood Transfusion Reaction / Comment(s): Pt has never recieved blood. Past Psychological History: Anxiety Additional Psychological History / Comment(s): She is indepndent. She uses no assistive devices. She has no home care agency use. She drives a car. Smoking Status: Former smoker Past Alcohol Use History: None Reported Additional Past Alcohol Use History / Comment(s): Pt started smoking in 1958 and quit in 1995 Past Drug Use History: None Reported - Past Family History Mother Family Medical History: Diabetes Mellitus Additional Family Medical History / Comment(s): Heart disease. Father Family Medical History: No Reported History Sister(s) Family Medical History: Cancer, Diabetes Mellitus Additional Family Medical History / Comment(s): One sister had breast cancer and another sister had bone cancer. Multiple siblings have diabetes. Medications and Allergies Home Medications Medication Instructions Recorded Confirmed Type INSULIN LISPRO (HumaLOG) [humaLOG] 8 unit SQ AC-BRKFST 05/27/16 06/25/22 History INSULIN LISPRO (HumaLOG) [humaLOG] 10 unit SQ AC-LUNCH 05/27/16 06/25/22 History INSULIN LISPRO (HumaLOG) [humaLOG] 12 unit SQ AC-SUPPER 05/27/16 06/25/22 History Acetaminophen/Diphenhydramine 2 tab PO HS 12/29/19 06/25/22 History [Tylenol PM 500-25mg] Folic Acid 1 mg PO DAILY 12/29/19 06/25/22 History Pantoprazole [Protonix] 40 mg PO DAILY 06/28/20 06/25/22 History Albuterol Inhaler [Ventolin Hfa 2 puff INHALATION RT-Q6H PRN 06/25/22 06/25/22 History Inhaler] Cholecalciferol [Vitamin D3 (25 50 mcg PO DAILY 06/25/22 06/25/22 History Mcg = 1000 Iu)] Insulin Glargine,Hum.rec.anlog 23 units SQ HS 06/25/22 06/25/22 History [Lantus Solostar Pen] Levothyroxine Sodium [Synthroid] 75 mcg PO MOTUWETHFRSA 06/25/22 06/25/22 History Rosuvastatin Calcium [Crestor] 40 mg PO DAILY 06/25/22 06/25/22 History Vitamin E (Dl,Tocopheryl Acet) 400 unit PO DAILY 06/25/22 06/25/22 History [Vitamin E (400 Iu = 180 mg)] amLODIPine [Norvasc] 5 mg PO BID 06/25/22 06/25/22 History hydrALAZINE HCL [Apresoline] 50 mg PO BID 06/25/22 06/25/22 History Allergies Allergy/AdvReac Type Severity Reaction Status Date / Time adhesive Allergy Rash/Hives Verified 06/25/22 15:48 Physical Exam Vitals: Vital Signs Temp Pulse Pulse Resp BP BP Pulse Ox 06/25/22 17:04 98.7 F 87 16 136/71 95 06/25/22 16:40 90 17 153/76 94 L 06/25/22 14:07 97 F L 99 24 123/61 97 Intake and Output 06/25/22 06/25/22 06/25/22 06:59 14:59 22:59 Intake Total 100 Balance 100 Intake: Oral 100 Other: Weight 63.957 kg 63.957 kg GENERAL: The patient is alert and oriented x3, not in any acute distress. Well developed, well nourished. patient looks tired and exhausted HEENT: Pupils are round and equally reacting to light. EOMI. No scleral icterus. No conjunctival pallor. Normocephalic, atraumatic. No pharyngeal erythema. No thyromegaly. CARDIOVASCULAR: S1 and S2 present. No murmurs, rubs, or gallops. -PULMONARY: Chest is clear to auscultation, no wheezing or crackles. patient is tachypneic and get short of breath while talking ABDOMEN: Soft, nontender, nondistended, normoactive bowel sounds. No palpable organomegaly. MUSCULOSKELETAL: No joint swelling or deformity. EXTREMITIES: No cyanosis, clubbing, or pedal edema. NEUROLOGICAL: Gross neurological examination did not reveal any focal deficits. SKIN: No rashes. no petechiae. Results CBC & Chem 7: 06/25/22 14:56 06/25/22 14:56 Labs: Abnormal Lab Results - Last 24 Hours (Table) 06/25/22 06/25/22 06/25/22 Range/Units 14:56 14:56 17:06 Plt Count 451 H (150-450) k/uL Neutrophils # 8.8 H (1.3-7.7) k/uL Lymphocytes # 0.7 L (1.0-4.8) k/uL Sodium 136 L (137-145) mmol/L Glucose 229 H (74-99) mg/dL POC Glucose (mg/dL) 168 H (70-110) mg/dL Thrombosis Risk Factor Assmnt - Choose All That Apply Any of the Below Risk Factors Present?: Yes Each Factor Represents 1 point: Abnormal pulmonary function (COPD) Other Risk Factors: Yes Each Risk Factor Represents 3 Points: Age 75 years or older Thrombosis Risk Factor Assessment Total Risk Factor Score: 4 Thrombosis Risk Factor Assessment Level: Moderate Risk Assessment and Plan Assessment: Left lower lobeOpacity suspicious for atelectasis, pneumonia locally metastatic lung cancer non-small cell lung cancer, adenocarcinoma,of the right lungstatus post lumpectomy and chemotherapy COPD without exacerbation Diabetes mellitus Hyperlipidemia Hypertension Plan: continue with pain medicine Oxygen as needed Pain management Hematology/oncology team consult pulmonary team consult unlikely The patient has infection. Check potential stone and Labs and medication were reviewed.. Continue same treatment. Continue with symptomatic treatment. Resume home medication. Monitor lytes and vitals. DVT and GI prophylaxis. Further recommendations as per clinical course of the patient DVT prophylaxis: Subcutaneous heparin GI Prophylaxis: Pepcid PT/OT: Pending Prognosis is guarded
[2022-06-25] MEDS ORDERED: INSULIN DETEMIR (LEVEMIR) 100 UNIT/ML SYR SQ SCH (21:00)
[2022-06-25 21:06] LABS: Glucose,Whole Blood 171 mg/dL (70-110)
[2022-06-25] MEDS: hydrALAZINE HCL 50 MG TAB PO SCH (21:21)
[2022-06-25] MEDS: HEPARIN SODIUM,PORCINE/PF 5,000 UNIT/0.5 ML SYRINGE SQ SCH (21:21)
[2022-06-25] MEDS: amLODIPine 5 MG TAB PO SCH (21:21)
[2022-06-26] MEDS: LEVOTHYROXINE 75 MCG TAB PO SCH (05:59)
[2022-06-26] MEDS ORDERED: PANTOPRAZOLE 40 MG TABLET PO SCH (07:30)
[2022-06-26] MEDS ORDERED: INSULIN ASPART (NovoLOG) 100 UNIT/ML VIAL SQ SCH ×2 (07:30→12:30)
[2022-06-26 07:52] LABS: Glucose,Whole Blood 144 mg/dL (70-110)
[2022-06-26 08:26] VITALS: RESP 16
[2022-06-26] MEDS ORDERED: ATORVASTATIN 80 MG TAB PO SCH (09:00)
[2022-06-26] MEDS: amLODIPine 5 MG TAB PO SCH (09:10)
[2022-06-26] MEDS: hydrALAZINE HCL 50 MG TAB PO SCH (09:10)
--- NOTE | 2022-06-26 09:18 | XR ---
EXAMINATION TYPE: XR chest 1V portable DATE OF EXAM: 06/26/2022 HISTORY: Status post thoracentesis. COMPARISON: 06/25/2022 TECHNIQUE: Single view of the chest is submitted. FINDINGS: Demonstrated are scattered senescent parenchymal change. There is no evidence for left-sided pneumothorax. Left-sided effusion has decreased significantly. Pe rsistent small bilateral effusions. Linear atelectasis left lower lobe. The heart is stable. Hilar and mediastinal structures are within normal limits. Degenerative changes are seen of the dorsal spine. IMPRESSION: 1. No evidence for a pneumothorax in a patient who is status post thoracentesis.
[2022-06-26 09:20] LABS: African American GFR (CKD) 65.2 (60.0-200.0); Anion Gap 14.5 mmol/L (10.00-18.00); BUN/Creat Ratio 17.29 Ratio (12.00-20.00); Blood Urea Nitrogen 16.6 mg/dL (9.0-27.0); Calcium 8.9 mg/dL (8.7-10.3); Carbon Dioxide 22.6 mmol/L (20.0-27.5); Non-African American GFR(CKD) 56.3 (60.0-200.0); Potassium 3.5 mmol/L (3.5-5.5)
--- NOTE | 2022-06-26 09:23 | US ---
EXAMINATION TYPE: US chest DATE OF EXAM: 06/26/2022 COMPARISON: CXR CLINICAL HISTORY: pl effusion, left. Effusion, SOB TECHNIQUE: Targeted ultrasound of the posterior lower bilateral hemithoraces EXAM MEASUREMENTS: Right Pleural Effusion pocket size: 0 Left Pleural Effusion pocket size: 8.4 cm Left skin surface to fluid distance: 3.2 cm Right side NOT marked for possible thoracentesis outside the dept. Left side marked for possible thoracentesis outside the dept. Pulmonologists are able to review the images in the patient?s EMR. IMPRESSIONS: As above
[2022-06-26 09:28] LABS: Basophils # (A) 0.05 X 10*3/uL (0.00-0.10); Basophils % (A) 0.5 %; Eosinophils # (A) 0.05 X 10*3/uL (0.04-0.35); Eosinophils % (A) 0.5 %; HCT 35.6 % (37.2-46.3); HGB 11.9 g/dL (12.0-15.0); Immature Grans, Automated 0.9 %; Lymphocytes # (A) 0.66 X 10*3/uL (0.90-5.00); Lymphocytes % (A) 6.6 %; MCH 28.7 pg (27.0-32.0); MCHC 33.4 g/dL (32.0-37.0); MCV 85.8 fL (80.0-97.0); Mean Platelet Volume 9.1 fL (9.5-12.2); Monocytes % (A) 11.1 %; NRBC Per 100 WBC 0 /100 WBCS (0.0-0.0); Neutrophils # (A) 7.98 X 10*3/uL (1.80-7.70); Neutrophils % (A) 80.4 %; Platelet Count 373 X 10*3/uL (140-440); RBC 4.15 X 10*6/uL (4.10-5.20); RDW 13.9 % (11.5-14.5); WBC 9.93 X 10*3/uL (4.50-10.00)
[2022-06-26 12:13] LABS: Glucose,Whole Blood 189 mg/dL (70-110)
[2022-06-26] MEDS ORDERED: HYDROcodone/APAP 5-325MG 1 EACH TAB PO STA (12:21)
[2022-06-26] MEDS ORDERED: HYDROcodone/APAP 5-325MG 1 EACH TAB PO PRN (12:21)
[2022-06-26 12:26] VITALS: BMI 22.7
[2022-06-26] MEDS: HEPARIN SODIUM,PORCINE/PF 5,000 UNIT/0.5 ML SYRINGE SQ SCH (12:42)
--- NOTE | 2022-06-26 13:09 | OP ---
OPERATIVE REPORT PROCEDURE PERFORMED: Left-sided thoracentesis. PREOPERATIVE DIAGNOSIS: Left pleural effusion. POSTOPERATIVE DIAGNOSIS: Left pleural effusion. ANESTHESIA USED: 5 mL of 1% lidocaine. DESCRIPTION OF PROCEDURE: The patient was placed in a sitting upright position, the area below the left scapula was prepared in a sterile fashion and drapes were applied. The area of the fluid was earlier localized by ultrasound and it correlated to the 8th intercostal space and tip of the scapula. Then, the area was locally anesthetized with lidocaine. At the same site, a 26-gauge needle inserted at the same site and then the fluid was localized from the pleural space. Then a small incision was made, and a 9-Micronesian thoracentesis catheter and needle were used at the same site into the pleural space. Fluid localized again and the catheter was advanced over the needle and the needle was pulled out of the pleural space. Freely flowing fluid was removed, roughly 900 mL of serosanguineous fluid was removed from the left pleural space. Procedure was well tolerated, the fluid was sent for different diagnostic studies. Postoperative chest x-ray showed no complication and significant improvement in the left-sided pleural effusion. MMODL / IJN: [id number] /
--- NOTE | 2022-06-26 13:14 | P.CNPUL ---
History of Present Illness Consult date: 06/26/22 Requesting physician: Nolan Small Reason for consult: dyspnea, pleural effusion Chief complaint: Shortness of breath and nonproductive cough for one month History of present illness: I'm evaluating this patient today on 06/26/2022. She is on a general medical floor in no acute distress. Patient a 77 year old female, appearing stated age. Patient is on room air. Apparently, the patient has been experiencing shortness of breath which has been progressive and a cough for about 1 month. Patient denies: sputum production, fever or chills, chest pain. Patient has pertinent history of right lung adenocarcinoma which resulted in a lobectomy of the right lower lobe with Dr. Hyde on 06/03/2016. Patient reportedly completed a course of chemotherapy managed by Dr. Santillan. A CTA was performed on 06/04/2022, prompted by shortness of breath and concern for PE. This exam revealed new small left pleural effusion with associated atelectasis and nodular thickening of the left open upper lobe medial pleura and a nodule on the left lower lobe with concern of metastatic disease. Follow-up PET scan was performed on 06/21/2022 which showed multiple areas of metabolic activity along the left pulmonary pleura concerning for pleural metastatic disease with associated malignant pleural effusion. Today a chest ultrasound shows a left pleural effusion pocket of 8.4 cm.. Patient is on anticoagulation. A left thoracentesis was performed on this area with 900 ML's of serosanguineous return . Follow-up chest x-ray showed shows marked decrease in left pleural effusion without evidence of pneumothorax. Vital signs stable temperature 99.1 Fahrenheit, heart rate 97 bpm, respiratory rate 16, blood pressure 137/63, oxygen saturation is 94% on 2 L. CBC from today reveals a WBC count 9.9, h emoglobin 12, hematocrit 36, platelet 373,000. BMP from today reveal sodium 136, potassium 3.5, chloride 99, serum CO2 23, WN 17, creatinine 1, glucose 153. Procalcitonin is negative Review of Systems REVIEW OF SYSTEMS: CONSTITUTIONAL: Denies any recent significant weight loss or weight gain. EYES: Denies change in vision. EARS, NOSE, MOUTH, THROAT: Denies headaches, denies sore throat. CARDIOVASCULAR: Denies chest pain, palpitations or syncopal episodes. RESPIRATORY: Denies congestion or hemoptysis. Admits: progressive exertional shortness of breath, nonproductive cough, GASTROINTESTINAL: Denies change in appetite, denies abdominal pain GENITOURINARY: Denies hematuria, denies infections. MUSKULOSKELETAL: Denies pain, denies swelling. INTEGUMENTARY: Denies rash, denies eczema. NEUROLOGICAL: Denies recent memory loss, no recent seizure activity. PSYCHIATRIC: Denies anxiety, denies depression. HEMATOLOGIC/LYMPHATIC: Denies anemia, denies enlarged lymph nodes. Past Medical History Past Medical History: Cancer, COPD, Diabetes Mellitus, Hyperlipidemia, Hypertension Additional Past Medical History / Comment(s): R LUNG CANCER 2016, type 2 diabetes requiring insulin, lumbar disc disease with previous lumbar laminectomy and discectomy. Osteoarthritis. Osteoporosis and she believes she took Fosamax for this in the past(?Length taken). 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 She did use HRT for 2 or 3 years in the past. pt recently told that her lung cancer is back. recent pet scan done on friday06/21/22. History of Any Multi-Drug Resistant Organisms: None Reported Past Surgical History: Back Surgery, Bladder Surgery, Hysterectomy, Orthopedic Surgery Additional Past Surgical History / Comment(s): 12/01/14 Lumbar laminectomy with decompression L4-5, discectomy L4-L5. Surgical repair of a hiatal hernia for GE reflux, rt cataract, RT LUNG LOWER LOBECTOMY 2015. Vaginal hysterectomy 1983. Patient states she had a colonoscopy approximately in 2016. Past Anesthesia/Blood Transfusion Reactions: No Reported Reaction Additional Past Anesthesia/Blood Transfusion Reaction / Comment(s): Pt has never recieved blood. Past Psychological History: Anxiety Additional Psychological History / Comment(s): She is indepndent. She uses no assistive devices. She has no home care agency use. She drives a car. Smoking Status: Former smoker Past Alcohol Use History: None Reported Additional Past Alcohol Use History / Comment(s): Pt started smoking in 1959 and quit in 1995 Past Drug Use History: None Reported - Past Family History Mother Family Medical History: Diabetes Mellitus Additional Family Medical History / Comment(s): Heart disease. Father Family Medical History: No Reported History Sister(s) Family Medical History: Cancer, Diabetes Mellitus Additional Family Medical History / Comment(s): One sister had breast cancer and another sister had bone cancer. Multiple siblings have diabetes. Medications and Allergies Home Medications Medication Instructions Recorded Confirmed Type INSULIN LISPRO (HumaLOG) [humaLOG] 8 unit SQ AC-BRKFST 05/27/16 06/25/22 History INSULIN LISPRO (HumaLOG) [humaLOG] 10 unit SQ AC-LUNCH 05/27/16 06/25/22 History INSULIN LISPRO (HumaLOG) [humaLOG] 12 unit SQ AC-SUPPER 05/27/16 06/25/22 History Acetaminophen/Diphenhydramine 2 tab PO HS 12/29/19 06/25/22 History [Tylenol PM 500-25mg] Folic Acid 1 mg PO DAILY 12/29/19 06/25/22 History Pantoprazole [Protonix] 40 mg PO DAILY 06/28/20 06/25/22 History Albuterol Inhaler [Ventolin Hfa 2 puff INHALATION RT-Q6H PRN 06/25/22 06/25/22 History Inhaler] Cholecalciferol [Vitamin D3 (25 50 mcg PO DAILY 06/25/22 06/25/22 History Mcg = 1000 Iu)] Insulin Glargine,Hum.rec.anlog 23 units SQ HS 06/25/22 06/25/22 History [Lantus Solostar Pen] Levothyroxine Sodium [Synthroid] 75 mcg PO MOTUWETHFRSA 06/25/22 06/25/22 History Rosuvastatin Calcium [Crestor] 40 mg PO DAILY 06/25/22 06/25/22 History Vitamin E (Dl,Tocopheryl Acet) 400 unit PO DAILY 06/25/22 06/25/22 History [Vitamin E (400 Iu = 180 mg)] amLODIPine [Norvasc] 5 mg PO BID 06/25/22 06/25/22 History hydrALAZINE HCL [Apresoline] 50 mg PO BID 06/25/22 06/25/22 History HYDROcodone/APAP 5-325MG [[place] 1 each PO Q6HR PRN 3 Days #12 tab 06/26/22 Rx 5-325] Allergies Allergy/AdvReac Type Severity Reaction Status Date / Time adhesive Allergy Rash/Hives Verified 06/25/22 15:48 Physical Exam Vitals: Vital Signs Temp Pulse Pulse Resp BP BP Pulse Ox 06/26/22 11:27 92 06/26/22 11:16 92 06/26/22 08:00 97 16 06/26/22 07:00 99.1 F 97 16 137/63 92 L 06/26/22 02:17 97.9 F 96 19 120/86 94 L 06/25/22 19:03 98.3 F 97 19 155/61 93 L 06/25/22 17:04 98.7 F 87 16 136/71 95 06/25/22 16:40 90 17 153/76 94 L 06/25/22 14:07 97 F L 99 24 123/61 97 Intake and Output 06/25/22 06/26/22 06/26/22 22:59 06:59 14:59 Intake Total 100 0 Balance 100 0 Intake: Oral 100 0 Other: Voiding Method Toilet Toilet Toilet # Voids 1 2 Weight 63.957 kg 63.957 kg GENERAL EXAM: Alert, active, comfortable in no apparent distress. HEAD: Normocephalic. EYES: Normal reaction of pupils, equal size. NOSE: Clear with pink turbinates. THROAT: No erythema or exudates. NECK: No masses, no JVD. CHEST: No chest wall deformity. LUNGS: There is obvious evidence of consolidation demonstrated by diminished lung sounds on the left lower lobe and dullness to percussion in this area. No crackles, wheeze, rhonchi. CVS: S1 and S2 normal with no audible murmur, regular rhythm. ABDOMEN: No hepatosplenomegaly, normal bowel sounds, no guarding or rigidity. SPINE: No scoliosis or deformity SKIN: No rashes CENTRAL NERVOUS SYSTEM: No focal deficits, tone is normal in all 4 extremities. EXTREMITIES: There is no peripheral edema. No clubbing, no cyanosis. Peripheral pulses are intact. Results - Laboratory Findings CBC and BMP: 06/26/22 05:43 06/26/22 05:43 PT/INR, D-dimer PT 10.2 sec (9.0-12.0) 06/25/22 14:56 INR 1.0 (<1.2) 06/25/22 14:56 Abnormal lab findings: Abnormal Labs 06/25/22 06/25/22 06/25/22 14:56 14:56 17:06 Hgb Hct Plt Count 451 H MPV Immature Gran # Neutrophils # 8.8 H Lymphocytes # 0.7 L Monocytes # Sodium 136 L Est GFR (CKD-EPI)NonAf Glucose 229 H POC Glucose (mg/dL) 168 H Procalcitonin 06/25/22 06/26/22 06/26/22 21:04 05:43 05:43 Hgb 11.9 L Hct 35.6 L Plt Count MPV 9.1 L Immature Gran # 0.09 H Neutrophils # 7.98 H Lymphocytes # 0.66 L Monocytes # 1.10 H Sodium Est GFR (CKD-EPI)NonAf Glucose POC Glucose (mg/dL) 171 H Procalcitonin 0.17 H 06/26/22 06/26/22 06/26/22 05:43 07:50 12:11 Hgb Hct Plt Count MPV Immature Gran # Neutrophils # Lymphocytes # Monocytes # Sodium Est GFR (CKD-EPI)NonAf 56.3 L Glucose 153 H POC Glucose (mg/dL) 144 H 189 H Procalcitonin - Diagnostic Findings Chest x-ray: image reviewed Assessment and Plan Assessment: Suspected recurrent lung cancer type and staging unknown. History of right lower lobe adenocarcinoma status post lobectomy 2016. Left pleural effusion status post thoracentesis Acute exertional dyspnea secondary to above Chronic COPD Former smoker Diabetes mellitus2 Hyperlipidemia Hypertension Plan: Suspected recurrent lung cancer. Patient is following with Dr. Oquendo outpatient. History of right lower lobe adenocarcinoma status post lobectomy 2016. Left pleural effusion status post thoracentesis. A total of 900 mL of serosanguineous fluid was returned. Fluid was sent for cytology. Follow-up chest x-ray x-ray revealed markedly improved left pleural effusion and no evidence of pneumothorax. Acute exertional dyspnea secondary to above. Patient is tolerating room air. Chronic COPD maintained on when necessary Ventolin inhaler for shortness of sarah ath or wheezing Former smoker Diabetes mellitus2 insulin-dependent maintained on Lantus and mealtime Humalog. Hyperlipidemia Hypertension Patient is cleared from a pulmonary standpoint to follow up outpatient. I have personally seen and examined the patient, performed the documentation and the assessment and plan as written. Number of minutes spent on the visit: [ 20]. Time with Patient: Less than 30
[2022-06-26 16:03] LABS: Total Protein 7.1 g/dL (6.2-8.2)
[2022-06-26 16:40] VITALS: BP 122/67; PULSE 95; TEMP 98.1
--- NOTE | 2022-06-26 18:00 | P.CONS ---
History of Present Illness - Reason for Consult Consult date: 06/26/22 adenocarcinoma of the lung Requesting physician: Nolan Small - Chief Complaint SOB - History of Present Illness This is a very pleasant 77 yr old female patient of Dr. Oquendo with hx adenocarcinoma, HLD, HTN and type 2 DM. Patient was seen in onc clinic yesterday for recent PET scan results, at which time patient reported having worsening SOB and weakness over the last month, and has been having difficulty ambulating, sleeping and taking care of ADLs, and states she could not go home in the condition she was in, at which time pt was referred to the ER. CXR showed w orsening LLL effusion ,with underlying atelectasis. Pt had thoracentesis today with 750 mL fluid drained, with cytology pending. Pt reporting significant improvements in her symptoms when seen, no new c/o. Onc Hx: Hx of metastatic adenocarcinoma, s/p RLL lobectomy (2015). Treated with 3 cycles of carboplatin/carmine starting in 07/2016, stopped due to worsening fatigue. She cont on f/u, PET scan in 11/2017, confirmed disease progression to mediastinal nodes at which time she was started on keytruda. On Keytruda for 2 years, stopping treatment in December/2019-no study data availabe at that time to cont therapy on a pt with ROSALES. Pt continued to have repeat CT through 02/2022 and did well. Seen [facility] ER on 06/04/2022 for left arm/shoulder pain, had CTA (-) PE which revealed new Small left pleural effusion with associated atelectasis. There was nodular area of thickening along the left upper lobe medial pleura and a nodule in the left lower lobe which are concerning for metastatic disease g iven history of malignancy. F/u PET scan was positive for increased uptake in pluera of left lung. Scehd for Cardiothoracic eval for pl bx. Review of Systems 10 point ROS is neg except as stated in HPI Past Medical History Past Medical History: Cancer, COPD, Diabetes Mellitus, Hyperlipidemia, Hypertension Additional Past Medical History / Comment(s): R LUNG CANCER 2016, type 2 diabetes requiring insulin, lumbar disc disease with previous lumbar laminectomy and discectomy. Osteoarthritis. Osteoporosis and she believes she took Fosamax for this in the past(?Length taken). 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 She did use HRT for 2 or 3 years in the past. pt recently told that her lung cancer is back. recent pet scan done on friday06/21/22. History of Any Multi-Drug Resistant Organisms: None Reported Past Surgical History: Back Surgery, Bladder Surgery, Hysterectomy, Orthopedic Surgery Additional Past Surgical History / Comment(s): 12/01/14 Lumbar laminectomy with decompression L4-5, discectomy L4-L5. Surgical repair of a hiatal hernia for GE reflux, rt cataract, RT LUNG LOWER LOBECTOMY 2015. Vaginal hysterectomy 1983. Patient states she had a colonoscopy approximately in 2015. Past Anesthesia/Blood Transfusion Reactions: No Reported Reaction Additional Past Anesthesia/Blood Transfusion Reaction / Comm: Pt has never recieved blood. Past Psychological History: Anxiety Additional Psychological History / Comment(s): She is indepndent. She uses no assistive devices. She has no home care agency use. She drives a car. Smoking Status: Former smoker Past Alcohol Use History: None Reported Additional Past Alcohol Use History / Comment(s): Pt started smoking in 1958 and quit in 1995 Past Drug Use History: None Reported - Past Family History Mother Family Medical History: Diabetes Mellitus Additional Family Medical History / Comment(s): Heart disease. Father Family Medical History: No Reported History Sister(s) Family Medical History: Cancer, Diabetes Mellitus Additional Family Medical History / Comment(s): One sister had breast cancer and another sister had bone cancer. Multiple siblings have diabetes. Medications and Allergies Home Medications Medication Instructions Recorded Confirmed Type INSULIN LISPRO (HumaLOG) [humaLOG] 8 unit SQ AC-BRKFST 05/27/16 06/25/22 History INSULIN LISPRO (HumaLOG) [humaLOG] 10 unit SQ AC-LUNCH 05/27/16 06/25/22 History INSULIN LISPRO (HumaLOG) [humaLOG] 12 unit SQ AC-SUPPER 05/27/16 06/25/22 History Acetaminophen/Diphenhydramine 2 tab PO HS 12/29/19 06/25/22 History [Tylenol PM 500-25mg] Folic Acid 1 mg PO DAILY 12/29/19 06/25/22 History Pantoprazole [Protonix] 40 mg PO DAILY 06/28/20 06/25/22 History Albuterol Inhaler [Ventolin Hfa 2 puff INHALATION RT-Q6H PRN 06/25/22 06/25/22 History Inhaler] Cholecalciferol [Vitamin D3 (25 50 mcg PO DAILY 06/25/22 06/25/22 History Mcg = 1000 Iu)] Insulin Glargine,Hum.rec.anlog 23 units SQ HS 06/25/22 06/25/22 History [Lantus Solostar Pen] Levothyroxine Sodium [Synthroid] 75 mcg PO MOTUWETHFRSA 06/25/22 06/25/22 History Rosuvastatin Calcium [Crestor] 40 mg PO DAILY 06/25/22 06/25/22 History Vitamin E (Dl,Tocopheryl Acet) 400 unit PO DAILY 06/25/22 06/25/22 History [Vitamin E (400 Iu = 180 mg)] amLODIPine [Norvasc] 5 mg PO BID 06/25/22 06/25/22 History hydrALAZINE HCL [Apresoline] 50 mg PO BID 06/25/22 06/25/22 History HYDROcodone/APAP 5-325MG [[place] 1 each PO Q6HR PRN 3 Days #12 tab 06/26/22 Rx 5-325] Allergies Allergy/AdvReac Type Severity Reaction Status Date / Time adhesive Allergy Rash/Hives Verified 06/25/22 15:48 Physical Exam Vitals: Vital Signs Temp Pulse Pulse Resp BP BP Pulse Ox 06/26/22 11:27 92 06/26/22 11:16 92 06/26/22 08:00 97 16 06/26/22 07:00 99.1 F 97 16 137/63 92 L 06/26/22 02:17 97.9 F 96 19 120/86 94 L 06/25/22 19:03 98.3 F 97 19 155/61 93 L 06/25/22 17:04 98.7 F 87 16 136/71 95 06/25/22 16:40 90 17 153/76 94 L 06/25/22 14:07 97 F L 99 24 123/61 97 Intake and Output 06/25/22 06/26/22 06/26/22 22:59 06:59 14:59 Intake Total 100 0 Balance 100 0 Intake: Oral 100 0 Other: Voiding Method Toilet Toilet Toilet # Voids 1 2 Weight 63.957 kg - Constitutional General appearance: average body habitus, cooperative, no acute distress - EENT Eyes: anicteric sclerae, EOMI ENT: hearing grossly normal, normal oropharynx - Neck Neck: no lymphadenopathy - Respiratory Respiratory: left: diminished, bilateral: CTA - Cardiovascular Rhythm: regular Heart sounds: normal: S1, S2 Abnormal Heart Sounds: no systolic murmur, no diastolic murmur, no rub, no S3 Gallop, no S4 Gallop, no click, no other - Gastrointestinal General gastrointestinal: normal bowel sounds, soft - Integumentary Integumentary: pale - Neurologic Neurologic: CNII-XII intact - Musculoskeletal Musculoskeletal: strength equal bilaterally - Psychiatric Psychiatric: A&O x's 3, appropriate affect, intact judgment & insight Results CBC & Chem 7: 06/26/22 05:43 06/26/22 05:43 Labs: Abnormal Lab Results - Last 24 Hours (Table) 06/25/22 06/25/22 06/25/22 Range/Units 14:56 14:56 17:06 Hgb (12.0-15.0) g/dL Hct (37.2-46.3) % Plt Count 451 H (150-450) k/uL MPV (9.5-12.2) fL Immature Gran # (0.00-0.04) X 10*3/uL Neutrophils # 8.8 H (1.3-7.7) k/uL Lymphocytes # 0.7 L (1.0-4.8) k/uL Monocytes # (0.20-1.00) X 10*3/uL Sodium 136 L (137-145) mmol/L Est GFR (CKD-EPI)NonAf (60.0-200.0) Glucose 229 H (74-99) mg/dL POC Glucose (mg/dL) 168 H (70-110) mg/dL Procalcitonin (0.02-0.09) ng/mL 06/25/22 06/26/22 06/26/22 Range/Units 21:04 05:43 05:43 Hgb 11.9 L (12.0-15.0) g/dL Hct 35.6 L (37.2-46.3) % Plt Count (150-450) k/uL MPV 9.1 L (9.5-12.2) fL Immature Gran # 0.09 H (0.00-0.04) X 10*3/uL Neutrophils # 7.98 H (1.3-7.7) k/uL Lymphocytes # 0.66 L (1.0-4.8) k/uL Monocytes # 1.10 H (0.20-1.00) X 10*3/uL Sodium (137-145) mmol/L Est GFR (CKD-EPI)NonAf (60.0-200.0) Glucose (74-99) mg/dL POC Glucose (mg/dL) 171 H (70-110) mg/dL Procalcitonin 0.17 H (0.02-0.09) ng/mL 06/26/22 06/26/22 Range/Units 05:43 07:50 Hgb (12.0-15.0) g/dL Hct (37.2-46.3) % Plt Count (150-450) k/uL MPV (9.5-12.2) fL Immature Gran # (0.00-0.04) X 10*3/uL Neutrophils # (1.3-7.7) k/uL Lymphocytes # (1.0-4.8) k/uL Monocytes # (0.20-1.00) X 10*3/uL Sodium (137-145) mmol/L Est GFR (CKD-EPI)NonAf 56.3 L (60.0-200.0) Glucose 153 H (74-99) mg/dL POC Glucose (mg/dL) 144 H (70-110) mg/dL Procalcitonin (0.02-0.09) ng/mL Abdominal x-ray: report reviewed Assessment and Plan (1) Exertional dyspnea Status: Acute Priority: High Code(s): R06.09 - OTHER FORMS OF DYSPNEA SNOMED Code(s): 51087420 (2) Large pleural effusion Status: Acute Priority: High Code(s): J90 - PLEURAL EFFUSION, NOT ELSEWHERE CLASSIFIED SNOMED Code(s): 10162281 (3) Lung cancer Status: Chronic Priority: High Code(s): C34.90 - MALIGNANT NEOPLASM OF UNSP PART OF UNSP BRONCHUS OR LUNG SNOMED Code(s): 191449917 Plan: F/u outpt PET scan was positive for increased uptake in pluera of left lung. F/u with cardiothoracic surgeon palnned for Friday Thorcentesis performed today, 750 mL removed, cytology pending. Will f/u Pt looked much improved today from office visit yesterday. Breathing even and unlabored, and anxiousness regarding changes in current health is improved attests: I have seen and examined pt, performed H&P, developed impression and plan of care. Discussed with dictator. Agree with documentation, dictated as a scribe.
[2022-06-26 21:57] LABS: Appearance,BF Bloody
[2022-06-26 23:05] LABS: Glucose, BF Source Pleural Fluid; Glucose, Body Fluid 130 mg/dL; LDH, Body Fluid Source Pleural Fluid; T. Protein, Body Fluid Source Pleural Fluid; Total Protein, Body Fluid 4430 mg/dL
--- NOTE | 2022-06-26 23:54 | P.DS ---
Providers Date of admission: 06/25/22 15:32 Attending physician: Pierre Schuster MD Consults: 06/25/22 15:32 Consult Physician Urgent Consulting Provider: Angel Queen Consult Reason/Comments: Pleural effusion, lung cancer Do you want consulting provider notified?: Yes Consult Physician Urgent Consulting Provider: Danielle Oquendo Consult Reason/Comments: Lung cancer Do you want consulting provider notified?: Yes Primary care physician: Isael Humphries MD Hospital Course: Diagnoses Left lower lobe Opacity suspicious for locally metastatic lung cancer non-small cell lung cancer, adenocarcinoma,of the right lung status post lobectomy and chemotherapy COPD without exacerbation Diabetes mellitus Hyperlipidemia Hypertension Hospital course: this is a pleasant 77 soft female with past medical history including multiple medical problems including history of lung cancersince 2015 and she follow up with Dr. Oquendo in the outpatient setting and she's getting so far 3 cycles of chemotherapy, she is status post right lower lobe resection. She presents because of dyspnea about one month and duration associated with minimal or no cough Patient found to have left pleural effusion and she underwent left-sided thoracocentesis by the pulmonary team and results sent for cytology, after that I discussed the case with pulmonary team. Her for discharge Patient today after the procedure was awake and alert, less dyspneic but not completely resolved, she denies significant chest pain or coughing. She denies any other GI or urinary complaints. I discussed the case with the patient and that she has been cleared by pulmonary team for discharge and she agrees to go home and follow up outpatient with Dr. Llamas on 07/11/22. Patient was cleared for discharge by pulmonary service. Patient does not need antibiotics upon discharge per pulmonary team. Problems and management plan were discussed with the patient and he verbalized understanding and acceptance Patient was found stable and can be discharged home in guarded prognosis however he needs follow-up as an outpatient. Patient was instructed to follow up with PCP Dr. Bello within one week and patient agrees Patient said she will follow up with Dr. Llamas on 07/11. Patient also was instructed to follow up with her oncologist Dr. Oquendo in one week and she agrees Patient states that she has a walker at home. Patient was found to be qualified for home oxygen, social work lecturer on the case and home oxygen delivered for the patient Physical exam Gen: patient is a AAOx3, no distress CVS: S1-S2, RRR, no murmur Lungs: B/L CTA, no wheezing Abdomen: soft, no distention, no tenderness, positive bowel sounds Extremity: no leg edema or induration Time spent more than 35 minutes Patient Condition at Discharge: Fair Plan - Discharge Summary Discharge Rx Participant: No New Discharge Prescriptions: New HYDROcodone/APAP 5-325MG [[place] 5-325] 1 each PO Q6HR PRN 3 Days #12 tab PRN Reason: Pain Continue INSULIN LISPRO (HumaLOG) [humaLOG] 8 unit SQ AC-BRKFST INSULIN LISPRO (HumaLOG) [humaLOG] 10 unit SQ AC-LUNCH INSULIN LISPRO (HumaLOG) [humaLOG] 12 unit SQ AC-SUPPER Folic Acid 1 mg PO DAILY Acetaminophen/Diphenhydramine [Tylenol PM 500-25mg] 2 tab PO HS Pantoprazole [Protonix] 40 mg PO DAILY hydrALAZINE HCL [Apresoline] 50 mg PO BID Vitamin E (Dl,Tocopheryl Acet) [Vitamin E (400 Iu = 180 mg)] 400 unit PO DAILY Cholecalciferol [Vitamin D3 (25 Mcg = 1000 Iu)] 50 mcg PO DAILY Levothyroxine Sodium [Synthroid] 75 mcg PO MOTUWETHFRSA Albuterol Inhaler [Ventolin Hfa Inhaler] 2 puff INHALATION RT-Q6H PRN PRN Reason: Shortness Of Breath Rosuvastatin Calcium [Crestor] 40 mg PO DAILY Insulin Glargine,Hum.rec.anlog [Lantus Solostar Pen] 23 units SQ HS amLODIPine [Norvasc] 5 mg PO BID Discharge Medication List INSULIN LISPRO (HumaLOG) [humaLOG] 8 unit SQ AC-BRKFST 05/27/16 [History] INSULIN LISPRO (HumaLOG) [humaLOG] 10 unit SQ AC-LUNCH 05/27/16 [History] INSULIN LISPRO (HumaLOG) [humaLOG] 12 unit SQ AC-SUPPER 05/27/16 [History] Acetaminophen/Diphenhydramine [Tylenol PM 500-25mg] 2 tab PO HS 12/29/19 [History] Folic Acid 1 mg PO DAILY 12/29/19 [History] Pantoprazole [Protonix] 40 mg PO DAILY 06/28/20 [History] Albuterol Inhaler [Ventolin Hfa Inhaler] 2 puff INHALATION RT-Q6H PRN 06/25/22 [History] Cholecalciferol [Vitamin D3 (25 Mcg = 1000 Iu)] 50 mcg PO DAILY 06/25/22 [History] Insulin Glargine,Hum.rec.anlog [Lantus Solostar Pen] 23 units SQ HS 06/25/22 [History] Levothyroxine Sodium [Synthroid] 75 mcg PO MOTUWETHFRSA 06/25/22 [History] Rosuvastatin Calcium [Crestor] 40 mg PO DAILY 06/25/22 [History] Vitamin E (Dl,Tocopheryl Acet) [Vitamin E (400 Iu = 180 mg)] 400 unit PO DAILY 06/25/22 [History] amLODIPine [Norvasc] 5 mg PO BID 06/25/22 [History] hydrALAZINE HCL [Apresoline] 50 mg PO BID 06/25/22 [History] HYDROcodone/APAP 5-325MG [[place] 5-325] 1 each PO Q6HR PRN 3 Days #12 tab 06/26/22 [Rx] Follow up Appointment(s)/Referral(s): Angel Queen MD [STAFF PHYSICIAN] - 07/11/22 9:30 am [facility] [NON-STAFF] - As Needed Isael Humphries MD [Primary Care Provider] - 1-2 days (please call for an appointment ) Danielle Oquendo MD [Family Provider] - 1 Week (your oncologist please call for an appointment ) Patient Instructions/Handouts: Dyspnea (GEN), Shortness of Breath (GEN) Activity/Diet/Wound Care/Special Instructions: Regular diet Activity is restricted until you see your doctor Discharge Disposition: HOME SELF-CARE
--- NOTE | 2022-07-05 08:16 | P.GSCN ---
History of Present Illness Consult date: 07/05/22 Reason for Consult: Recurrent left pleural effusion Requesting physician: De Sweet History of present illness: This is a 77-year-old female patient who is followed on an outpatient basis by Dr. Isael Humphries for her primary care, with Dr. Queen for her pulmonary care and what Dr. Oquendo for her oncology care. Just past medical history significant for adenocarcinoma of the lung and is status post a right lower lobectomy, 3 rounds of chemotherapy in 2016, COPD, insulin-dependent diabetes mellitus, hypertension, hyperlipidemia, hypothyroid, remote history of nicotine dependence in which she quit smoking over 25 years ago, osteoarthritis and degenerative joint disease status post lumbar laminectomy. Recently, over the past 4-6 weeks the patient has had complaints of progressive shortness of breath, nonproductive cough and hypoxemia. The patient also reports that she has had episodes of pain across her left anterior chest. She was recently admitted to the hospital for similar complaints of shortness of breath 1-2 weeks ago. She reports she was discharged after undergoing a left-sided thoracentesis with 900 mL of pleural fluid drained by Dr. Queen. The patient denies any recent fever, chills, nausea, vomiting, diarrhea, hemoptysis, hematemesis, lightheadedness, headache, or recent trauma. Currently she is using home oxygen with 3 L nasal cannula. On admission the patient underwent a chest x-ray which showed a small to moderate left and small right pleural effusion, platelike atelectasis to the left lung base and a possible 1.2 cm nodule to her left upper lung field. Due to the findings of a left pleural effusion and ultrasound of her chest was completed which showed a left pleural effusion pocket size measuring 8.4 cm. Patient also underwent a PET scan on 06/23/2022 which demonstrated multiple areas of metabolic activity along the left pulmonary pleura concerning for pleural metastatic disease with associated malignant pleural effusion. Subsequently, due to the patient's symptoms, recent thoracentesis and recurrence of left pleural effusion and a consult was placed to Dr. Elie Hyde for possible Pleurx catheter placement. A computed tomography scan of the chest was completed yesterday 07/04/2022 which the report demonstrated a moderate sized left pleural effusion with some loculation of the pleural fluid along the anterior left chest wall, atherosclerotic vascular disease and minimal pleural scarring at the right lung base without change. Initial laboratory results showed a WBC count of 12.7, hemoglobin 12.7, hematocrit 37.9, platelets 442, PT 10.2, INR 1.0, PTT 26.5, d-dimer 3.98, sodium 133, potassium 3.8, chloride 95, CO2 30, BUN 16, creatinine 0.76, glucose 186, troponin less than 0.012, AST 74 and ALT 52. The patient's T-max temperature in the last 24 hours has been 99.7F. Review of Systems A 14 point review of systems was completed and was negative except as mentioned in the HPI. Past Medical History Past Medical History: Cancer (History of adenocarcinoma, status post right lower lobectomy in 2016), COPD, Diabetes Mellitus (Insulin-dependent), Hyperlipidemia, Hypertension, Osteoarthritis (OA), Respiratory Disorder, Thyroid Disorder Additional Past Medical History / Comment(s): R LUNG CANCER 2016, type 2 diabetes requiring insulin, lumbar disc disease with previous lumbar laminectomy and discectomy. Osteoarthritis. Osteoporosis and she believes she took Fosamax for this in the past(?Length taken). 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 She did use HRT for 2 or 3 years in the past. pt recently told that her lung cancer is back. recent pet scan done on friday06/21/22. History of Any Multi-Drug Resistant Organisms: None Reported Past Surgical History: Back Surgery, Bladder Surgery, Hysterectomy, Orthopedic Surgery Additional Past Surgical History / Comment(s): 12/01/14 Lumbar laminectomy with decompression L4-5, discectomy L4-L5. Surgical repair of a hiatal hernia for GE reflux, bilateral cataracts, RT LUNG LOWER LOBECTOMY 2015. Vaginal hy sterectomy 1983. Patient states she had a colonoscopy approximately in 2016. Past Anesthesia/Blood Transfusion Reactions: No Reported Reaction Additional Past Anesthesia/Blood Transfusion Reaction / Comm: Pt has never recieved blood. Past Psychological History: Anxiety Additional Psychological History / Comment(s): She is indepndent. She uses no assistive devices. She has no home care agency use. She drives a car. Smoking Status: Former smoker (Quit smoking over 25 years ago) Past Alcohol Use History: None Reported Additional Past Alcohol Use History / Comment(s): Pt started smoking in 1959 and quit in 1995 Past Drug Use History: None Reported - Past Family History Mother Family Medical History: Diabetes Mellitus Additional Family Medical History / Comment(s): Heart disease. Patient reports her mother during childbirth Father Family Medical History: CVA/TIA, Myocardial Infarction ([place]) Sister(s) Family Medical History: Cancer, Diabetes Mellitus Additional Family Medical History / Comment(s): One sister had breast cancer and another sister had bone cancer. Multiple siblings have diabetes. Medications and Allergies Home Medications Medication Instructions Recorded Confirmed Type Acetaminophen/Diphenhydramine 2 tab PO HS 12/29/19 07/03/22 History [Tylenol PM 500-25mg] Folic Acid 1 mg PO DAILY 12/29/19 07/03/22 History Pantoprazole [Protonix] 40 mg PO DAILY 06/28/20 07/03/22 History Albuterol Inhaler [Ventolin Hfa 2 puff INHALATION RT-Q6H PRN 06/25/22 07/03/22 History Inhaler] Cholecalciferol [Vitamin D3 (25 50 mcg PO DAILY 06/25/22 07/03/22 History Mcg = 1000 Iu)] Insulin Glargine,Hum.rec.anlog 23 units SQ HS 06/25/22 07/03/22 History [Lantus Solostar Pen] Levothyroxine Sodium [Synthroid] 75 mcg PO DAILY 06/25/22 07/03/22 History Rosuvastatin Calcium [Crestor] 40 mg PO HS 06/25/22 07/03/22 History Vitamin E (Dl,Tocopheryl Acet) 400 unit PO DAILY 06/25/22 07/03/22 History [Vitamin E (400 Iu = 180 mg)] amLODIPine [Norvasc] 5 mg PO BID 06/25/22 07/03/22 History hydrALAZINE HCL [Apresoline] 50 mg PO BID 06/25/22 07/03/22 History HYDROcodone/APAP 5-325MG [[place] 1 tab PO Q6H PRN 07/03/22 07/03/22 History 5-325] Insulin Lispro [humaLOG Kwikpen] See Protocol SQ AC-TID 07/03/22 07/03/22 His tory Ipratropium [place] 0.06%Nasal 2 spr EA NOSTRIL BID PRN 07/03/22 07/03/22 History [Atrovent Nasal 0.06%] Triamcinolone 0.1% Cream [Kenalog 1 applic TOPICAL BID PRN 07/03/22 07/03/22 History 0.1% Cream] Allergies Allergy/AdvReac Type Severity Reaction Status Date / Time adhesive Allergy Rash/Hives Verified 07/03/22 18:49 Surgical - Exam Vital Signs Temp Pulse Resp BP Pulse Ox 97 F L 99 24 123/61 97 06/25/22 14:07 06/25/22 14:07 06/25/22 14:07 06/25/22 14:07 06/25/22 14:07 - General well developed, well nourished, no distress, no pain, chronically ill - Eyes PERRL, normal ocular movement, no pale, no icteric - ENT normal pinna, normal nares, normal mucosa, no hearing loss, no congestion - Neck Neck is supple, no lymphadenopathy. no masses, no bruits, trachea midline, no venous distension - Respiratory Lung sounds essentially diminished throughout, diminished to her bilateral bases left greater than right. Respirations are symmetrical and nonlabored. No wheezes, rhonchi or crackles. Oxygen saturation is 93% on 3 L nasal cannula. - Cardiovascular Regular rhythm and rate. S1 and S2 present, negative for S3, gallop or murmur. No edema present. Peripheral pulses palpable. - Abdomen Abdomen is soft, nontender and nondistended. Active bowel sounds present all 4 abdominal quadrants. No guarding or rigidity. No organomegaly appreciated. - Genitourinary Deferred - Rectum Deferred - Integumentary Skin is warm and dry. No clubbing or cyanosis is present. no rash, no growths, no abnormal pigmentation - Neurologic No focal deficits. normal coordination, normal sensation - Musculoskeletal Moves all 4 extremities with equal strength bilateral. normal gait - Psychiatric oriented to time, oriented to person, oriented to place, speech is normal, memory intact Results - Labs 06/26/22 05:43 06/26/22 05:43 - Imaging Chest x-ray: report reviewed, image reviewed CT scan - chest: report reviewed, image reviewed EKG: image reviewed Assessment and Plan Assessment: 1. Recurrent left-sided pleural effusion, possibly related to recurrent malignancy, status post PET scan on 06/23/2022 with multiple areas showing metabolic activity along the left pulmonary pleura concerning for pleural metastatic disease with associated malignant pleural effusion, status post left- sided thoracentesis on 06/26/2022 with cytology negative for malignancy 2. Shortness of breath, likely secondary to above 3. History of lung cancer, adenocarcinoma, status post right lower lobectomy in 2016 followed by 3 rounds of chemotherapy and subsequent immunotherapy with Keytruda 4. Chronic obstructive pulmonary disease, on home oxygen 3 L nasal cannula 5. Hypertension 6. Hyperlipidemia, treated 7. Thyroid disorder 8. Insulin-dependent diabetes mellitus 9. Remote history of nicotine dependence quit smoking over 25 years ago 10. Osteoarthritis 11. Degenerative disc disease, status post lumbar laminectomy Plan: The patient was seen and examined at her bedside on the fifth floor medical surgical oncology unit. Her chart and diagnostics were reviewed. Her case was discussed in detail with Dr. Elie Hyde from cardiothoracic surgery. She is nothing by mouth, treatment options were discussed including placement of left- sided Pleurx catheter. Risks and benefits of the procedure were discussed with the patient. Knowing and understanding the risks of works catheter placement the patient wishes to proceed. The patient is scheduled for left Pleurx catheter placement this afternoon 07/05/2022. Encourage use of incentive spirometry 10 times every hour while awake. Medical management and other comorbidities per primary care service and pulmonary/critical care service. Continue to monitor daily chest x-rays. Once that Pleurx is placed bedside teaching on Pleurx care will be completed with the patient and family. Case management has been consulted for home care and Pleurx care management. Thank you Dr. Sweet for this consult and we look forward to working with you in the care of this patient. I have personally seen and examined the patient, performed the documentation and the assessment and plan as written. 30 minutes spent on the visit . Meek PADILLA
== END 2022-06-26 16:29 | disposition home or self-care (01) ==
LOC: EC 13:59 → 6NMEDSUR 15:32
PROVIDERS: ADMIT Internal Medicine; ATTEND Internal Medicine
DX: J90 Pleural effusion, not elsewhere classified (principal); R94.2 Abnormal results of pulmonary function studies; J98.11 Atelectasis; J44.9 Chronic obstructive pulmonary disease, unspecified; Z85.118 Personal history of other malignant neoplasm of bronchus and lung; E78.5 Hyperlipidemia, unspecified; I10 Essential (primary) hypertension; E11.9 Type 2 diabetes mellitus without complications; M19.90 Unspecified osteoarthritis, unspecified site; F41.9 Anxiety disorder, unspecified; M81.0 Age-related osteoporosis without current pathological fracture; Z20.822 Contact with and (suspected) exposure to COVID-19; Z79.4 Long term (current) use of insulin; Z79.890 Hormone replacement therapy; Z79.899 Other long term (current) drug therapy; Z91.048 Other nonmedicinal substance allergy status; Z90.710 Acquired absence of both cervix and uterus; Z90.2 Acquired absence of lung [part of]; Z98.890 Other specified postprocedural states; Z87.19 Personal history of other diseases of the digestive system; Z92.21 Personal history of antineoplastic chemotherapy; Z87.891 Personal history of nicotine dependence; Z83.3 Family history of diabetes mellitus; Z80.3 Family history of malignant neoplasm of breast; Z80.8 Family history of malignant neoplasm of other organs or systems; Z82.49 Family history of ischemic heart disease and other diseases of the circulatory system
CPT/HCPCS: 32555; 96372; 99285; 36415; 94640; 94760; 93005; 87798 ×3; 87496; 87498; 87529; 88108; 88305; 83880; 80053; 80048; 89050; 83605; 83615 ×2; 83735; 84155; 84484; 85025 ×2; 85610; 85730; 88342; 87252; 87502; 87634; 88341; 87070; 87205; 87116; 87102; 87206; 82945; 84157; 84145; 87636; 71045; 71046; 76604; G0378 ×2; J1644

== ENCOUNTER 2022-07-03 11:15 | Inpatient (IN) | payer MEDICARE ==
--- NOTE | 2022-07-03 12:29 | XR ---
EXAMINATION TYPE: XR chest 2V DATE OF EXAM: 07/03/2022 COMPARISON: 06/26/2022 INDICATION: Difficulty breathing TECHNIQUE: Frontal and lateral views of the chest are obtained. FINDINGS: The heart size is normal. The pulmonary vasculature is normal. Baby A 1.2 cm nodule in the left upper lung field. This is not clearly identified on the prior study. This could be related to the first rib and. There is a small to moderate left pleural effusion. Some adjacent platelike atelectasis is present. S mall right pleural effusion is present. IMPRESSION: 1. Small to moderate left and small right pleural effusion. 2. Platelike atelectasis left lung base. 3. Possible 1.2 cm nodule. Follow-up is recommended.
[2022-07-03 13:09] LABS: Basophils # (A) 0.1 k/uL (0-0.2); Basophils % (A) 0 %; Eosinophils # (A) 0.1 k/uL (0-0.7); Eosinophils % (A) 1 %; HCT 37.9 % (34.0-46.0); HGB 12.7 gm/dL (11.4-16.0); Lymphocytes # (A) 0.4 k/uL (1.0-4.8); Lymphocytes % (A) 3 %; MCH 28.7 pg (25.0-35.0); MCHC 33.6 g/dL (31.0-37.0); MCV 85.5 fL (80.0-100.0); Mean Platelet Volume 7.3; Monocytes # (A) 0.5 k/uL (0-1.0); Monocytes % (A) 4 %; Neutrophils # (A) 11.5 k/uL (1.3-7.7); Neutrophils % (A) 91 %; Platelet Count 442 k/uL (150-450); RBC 4.43 m/uL (3.80-5.40); RDW 13.6 % (11.5-15.5); WBC 12.7 k/uL (3.8-10.6)
[2022-07-03 13:20] LABS: Partial Thromboplastin Time 26.5 sec (22.0-30.0); Prothrombin Time 10.2 sec (9.0-12.0)
[2022-07-03 13:26] LABS: Albumin 3.5 g/dL (3.5-5.0); Calcium 8.9 mg/dL (8.4-10.2); Magnesium 2.1 mg/dL (1.6-2.3); Potassium 3.8 mmol/L (3.5-5.1); Total Bilirubin 0.6 mg/dL (0.2-1.3); Total Protein 6.5 g/dL (6.3-8.2)
--- NOTE | 2022-07-03 14:50 | US ---
EXAMINATION TYPE: US chest DATE OF EXAM: 07/03/2022 COMPARISON: CXR CLINICAL HISTORY: Bilateral effusion. Effusions TECHNIQUE: Targeted ultrasound of the posterior lower bilateral hemithoraces EXAM MEASUREMENTS: Right Pleural Effusion pocket size: 0 cm Left Pleural Effusion pocket size: 8.4 cm Left skin surface to fluid distance: 3.5 cm Right side NOT marked for possible thoracentesis outside the dept. Left side marked for possible thoracentesis outside the dept. Pulmonologists are able to review the images in the patient?s EMR. IMPRESSIONS: 1. Left pleural effusion
--- NOTE | 2022-07-03 17:01 | ED ---
General Adult HPI - General Chief complaint: Shortness of Breath Stated complaint: sob, weakness Time Seen by Provider: 07/03/22 15:57 Source: patient, RN notes reviewed, old records reviewed Mode of arrival: wheelchair Limitations: no limitations - History of Present Illness Initial comments: This is a 77-year-old female presents emergency Department with recurrent lung cancer. Patient states that she has yet to start any treatment for this round of her lung cancer. Patient comes in today after having been here about a week ago for a pleural effusion which was drained by the adult education professional. Patient returns today because she is having worsening shortness of breath and she states every day gets a little bit worse. Patient denies any chest pain. Patient has any palpitations. Patient denies any fever chills or cough. Patient denies any swelling to the legs or calf tenderness. Patient denies abdominal pain patient denies nausea vomiting diarrhea. - Related Data Home Medications Medication Instructions Recorded Confirmed INSULIN LISPRO (HumaLOG) [humaLOG] 8 unit SQ AC-BRKFST 05/27/16 06/25/22 INSULIN LISPRO (HumaLOG) [humaLOG] 10 unit SQ AC-LUNCH 05/27/16 06/25/22 INSULIN LISPRO (HumaLOG) [humaLOG] 12 unit SQ AC-SUPPER 05/27/16 06/25/22 Acetaminophen/Diphenhydramine 2 tab PO HS 12/29/19 06/25/22 [Tylenol PM 500-25mg] Folic Acid 1 mg PO DAILY 12/29/19 06/25/22 Pantoprazole [Protonix] 40 mg PO DAILY 06/28/20 06/25/22 Albuterol Inhaler [Ventolin Hfa 2 puff INHALATION RT-Q6H PRN 06/25/22 06/25/22 Inhaler] Cholecalciferol [Vitamin D3 (25 50 mcg PO DAILY 06/25/22 06/25/22 Mcg = 1000 Iu)] Insulin Glargine,Hum.rec.anlog 23 units SQ HS 06/25/22 06/25/22 [Lantus Solostar Pen] Levothyroxine Sodium [Synthroid] 75 mcg PO MOTUWETHFRSA 06/25/22 06/25/22 Rosuvastatin Calcium [Crestor] 40 mg PO DAILY 06/25/22 06/25/22 Vitamin E (Dl,Tocopheryl Acet) 400 unit PO DAILY 06/25/22 06/25/22 [Vitamin E (400 Iu = 180 mg)] amLODIPine [Norvasc] 5 mg PO BID 06/25/22 06/25/22 hydrALAZINE HCL [Apresoline] 50 mg PO BID 06/25/22 06/25/22 Previous Rx's Medication Instructions Recorded HYDROcodone/APAP 5-325MG [[place] 1 each PO Q6HR PRN 3 Days #12 tab 06/26/22 5-325] Allergies Allergy/AdvReac Type Severity Reaction Status Date / Time adhesive Allergy Rash/Hives Verified 06/25/22 15:48 Review of Systems ROS Statement: Those systems with pertinent positive or pertinent negative responses have been documented in the HPI. ROS Other: All systems not noted in ROS Statement are negative. Past Medical History Past Medical History: Cancer, COPD, Diabetes Mellitus, Hyperlipidemia, Hyper tension Additional Past Medical History / Comment(s): R LUNG CANCER 2016, type 2 diabetes requiring insulin, lumbar disc disease with previous lumbar laminectomy and discectomy. Osteoarthritis. Osteoporosis and she believes she took Fosamax for this in the past(?Length taken). 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 She did use HRT for 2 or 3 years in the past. pt recently told that her lung cancer is back. recent pet scan done on friday06/21/22. History of Any Multi-Drug Resistant Organisms: None Reported Past Surgical History: Back Surgery, Bladder Surgery, Hysterectomy, Orthopedic Surgery Additional Past Surgical History / Comment(s): 12/01/14 Lumbar laminectomy with decompression L4-5, discectomy L4-L5. Surgical repair of a hiatal hernia for GE reflux, rt cataract, RT LUNG LOWER LOBECTOMY 2015. Vaginal hysterectomy 1983. Patient states she had a colonoscopy approximately in 2015. Past Anesthesia/Blood Transfusion Reactions: No Reported Reaction Additional Past Anesthesia/Blood Transfusion Reaction / Comment(s): Pt has never recieved blood. Past Psychological History: Anxiety Smoking Status: Former smoker Past Alcohol Use History: None Reported Past Drug Use History: None Reported - Past Family History Mother Family Medical History: Diabetes Mellitus Additional Family Medical History / Comment(s): Heart disease. Father Family Medical History: No Reported History Sister(s) Family Medical History: Cancer, Diabetes Mellitus Additional Family Medical History / Comment(s): One sister had breast cancer and another sister had bone cancer. Multiple siblings have diabetes. General Exam - General Exam Comments Initial Comments: GENERAL: Patient is well-developed and well-nourished. Patient is nontoxic and well- hydrated and is in mild distress. ENT: Neck is soft and supple. No significant lymphadenopathy is noted. Oropharynx is clear. Moist mucous membranes. Neck has full range of motion without eliciting any pain. EYES: The sclera were anicteric and conjunctiva were pink and moist. Extraocular movements were intact and pupils were equal round and reactive to light. Eyelids were unremarkable. PULMONARY: Patient has diminished breath sounds in the left lower lobe CARDIOVASCULAR: There is a regular rate and rhythm without any murmurs gallops or rubs. ABDOMEN: Soft and nontender with normal bowel sounds. SKIN: Skin is clear with no lesions or rashes and otherwise unremarkable. NEUROLOGIC: Patient is alert and oriented x3. Cranial nerves II through XII are grossly intact. Motor and sensory are also intact. Normal speech, volume and content. Symmetrical smile. MUSCULOSKELETAL: Normal extremities with adequate strength and full range of motion. Patient has no edema to the legs tenderness LYMPHATICS: No significant lymphadenopathy is noted PSYCHIATRIC: Normal psychiatric evaluation. Limitations: no limitations Course Vital Signs 07/03/22 11:30 Temperature 97.8 F Pulse Rate 100 Respiratory 24 Rate Blood Pressure 113/65 O2 Sat by Pulse 95 Oximetry Medical Decision Making - Medical Decision Making Was pt. sent in by a medical professional or institution? @ -No Did you speak to anyone other than the patient for history? @ -Family Did you review nursing and triage notes? @ -Agree with nursing notes Were old charts reviewed? @ -I reviewed previous chest x-rays to compare with a chest x-ray. Differential Diagnosis? @ -Differential Dyspnea: Coronary syndrome, arrhythmia, tamponade, asthma, COPD, pulmonary embolism, pneumonia, pneumothorax, pulmonary effusion, anaphylaxis, diabetic ketoacidosis, flailed chest, pulmonary contusion, diaphragmatic rupture, anemia, neuromuscul ar, this is not meant to be an all-inclusive list. EKG interpreted by me (3pts min.)? @ -I did interpret EKG EKG shows sinus rhythm at 97 bpm [place] interval is on a 53 QRSs 81 Q-T intervals 353 QTC is 47. Patient's EKG shows no ST segment elevation or ST segment depression X-rays interpreted by me (1pt min.)? @ -Yes. X-ray of the chest shows pleural effusion on the left. CT interpreted by me (1pt min.)? @ -None U/S interpreted by me (1pt. min.)? @ -Ultrasound was done and shows a pleural effusion I did not interpreted What testing was considered but not performed? (CT, X-rays, U/S, labs)? Why? @ -CT CAT scan was considered however patient had a computed tomography scan one month ago and the pleural effusion explains her dyspnea and she will be admitted to pulmonary and cardiovascular surgery What meds were considered but not given? Why? @ -None Did you discuss the management of the patient with other professionals? @ -I spoke with Dr. Sweet about this case and the results. I also spoke with the hospitalist and they agreed to admit the patient Did you reconcile home meds? @ -No Was smoking cessation discussed for >3mins.? @ -No Was critical care preformed (if so, how long)? @ -Known Were there social determinants of health that impacted care today? How? (Homelessness, low income, unemployed, alcoholism, drug addiction, transportation, low edu. Level, literacy, decrease access to med. care, shelter, rehab)? @ -No Was there de-escalation of care discussed even if they declined? (Discuss DNR or withdrawal of care, Hospice)? @ -No What co-morbidities impacted this encounter? (DM, HTN, Smoking, COPD, CAD, Cancer, CVA, Hep., AIDS, mental health diagnosis, sleep apnea, morbid obesity)? @ -Lung cancer probable cause of the patient's pleural effusion and dyspnea Was patient admitted / discharged? @ -Patient will be admitted for the pleural effusion. I spoke with Dr. Sweet he is in agreement with this. Patient will have a thoracentesis and possibly have a drain placed by cardiothoracic surgery both the adult education professional and cardiovascular surgeon will be consulted Undiagnosed new problem with uncertain prognosis? @ -No Drug Therapy requiring intensive monitoring for toxicity (Heparin, Nitro, Insulin, Cardizem)? @ -No Were any procedures done? @ -Known Diagnosis/symptom? @ -Pleural effusion Acute, or Chronic, or Acute on Chronic? @ -Acute on chronic Uncomplicated (without systemic symptoms) or Complicated (systemic symptoms)? @ -Uncomplicated Side effects of treatment? @ -None Exacerbation, Progression, or Severe Exacerbation] @ -Exacerbation Poses a threat to life or bodily function? @ -None - Lab Data Result diagrams: 07/03/22 12:51 07/03/22 12:51 Lab Results 07/03/22 07/03/22 07/03/22 Range/Units 12:51 12:51 12:51 WBC 12.7 H (3.8-10.6) k/uL RBC 4.43 (3.80-5.40) m/uL Hgb 12.7 (11.4-16.0) gm/dL Hct 37.9 (34.0-46.0) % MCV 85.5 (80.0-100.0) fL MCH 28.7 (25.0-35.0) pg MCHC 33.6 (31.0-37.0) g/dL RDW 13.6 (11.5-15.5) % Plt Count 442 (150-450) k/uL MPV 7.3 Neutrophils % 91 % Lymphocytes % 3 % Monocytes % 4 % Eosinophils % 1 % Basophils % 0 % Neutrophils # 11.5 H (1.3-7.7) k/uL Lymphocytes # 0.4 L (1.0-4.8) k/uL Monocytes # 0.5 (0-1.0) k/uL Eosinophils # 0.1 (0-0.7) k/uL Basophils # 0.1 (0-0.2) k/uL PT 10.2 (9.0-12.0) sec INR 1.0 (<1.2) APTT 26.5 (22.0-30.0) sec Sodium 133 L (137-145) mmol/L Potassium 3.8 (3.5-5.1) mmol/L Chloride 95 L (98-107) mmol/L Carbon Dioxide 30 (22-30) mmol/L Anion Gap 8 mmol/L BUN 16 (7-17) mg/dL Creatinine 0.76 (0.52-1.04) mg/dL Est GFR (CKD-EPI)AfAm 87 (>60 ml/min/1.73 sqM) Est GFR (CKD-EPI)NonAf 75 (>60 ml/min/1.73 sqM) Glucose 186 H (74-99) mg/dL Calcium 8.9 (8.4-10.2) mg/dL Magnesium 2.1 (1.6-2.3) mg/dL Total Bilirubin 0.6 (0.2-1.3) mg/dL AST 74 H (14-36) U/L ALT 52 H (4-34) U/L Alkaline Phosphatase 106 (38-126) U/L Troponin I (0.000-0.034) ng/mL NT-Pro-B Natriuret Pep pg/mL Total Protein 6.5 (6.3-8.2) g/dL Albumin 3.5 (3.5-5.0) g/dL 07/03/22 07/03/22 Range/Units 12:51 12:51 WBC (3.8-10.6) k/uL RBC (3.80-5.40) m/uL Hgb (11.4-16.0) gm/dL Hct (34.0-46.0) % MCV (80.0-100.0) fL MCH (25.0-35.0) pg MCHC (31.0-37.0) g/dL RDW (11.5-15.5) % Plt Count (150-450) k/uL MPV Neutrophils % % Lymphocytes % % Monocytes % % Eosinophils % % Basophils % % Neutrophils # (1.3-7.7) k/uL Lymphocytes # (1.0-4.8) k/uL Monocytes # (0-1.0) k/uL Eosinophils # (0-0.7) k/uL Basophils # (0-0.2) k/uL PT (9.0-12.0) sec INR (<1.2) APTT (22.0-30.0) sec Sodium (137-145) mmol/L Potassium (3.5-5.1) mmol/L Chloride (98-107) mmol/L Carbon Dioxide (22-30) mmol/L Anion Gap mmol/L BUN (7-17) mg/dL Creatinine (0.52-1.04) mg/dL Est GFR (CKD-EPI)AfAm (>60 ml/min/1.73 sqM) Est GFR (CKD-EPI)NonAf (>60 ml/min/1.73 sqM) Glucose (74-99) mg/dL Calcium (8.4-10.2) mg/dL Magnesium (1.6-2.3) mg/dL Total Bilirubin (0.2-1.3) mg/dL AST (14-36) U/L ALT (4-34) U/L Alkaline Phosphatase (38-126) U/L Troponin I <0.012 (0.000-0.034) ng/mL NT-Pro-B Natriuret Pep 216 pg/mL Total Protein (6.3-8.2) g/dL Albumin (3.5-5.0) g/dL Disposition Clinical Impression: Pleural effusion, Dyspnea, History of lung cancer Disposition: ADMITTED IP TO THIS HOSP Referrals: Isael Humphries MD [Primary Care Provider] - 1-2 days Time of Disposition: 17:01
[2022-07-03 20:52] LABS: Glucose,Whole Blood 283 mg/dL (70-110)
[2022-07-03] MEDS ORDERED: HYDROcodone/APAP 5-325MG 1 EACH TAB PO PRN (21:25)
[2022-07-03] MEDS ORDERED: ALBUTEROL NEBULIZED 2.5 MG/3 ML INHALATION PRN (21:25)
[2022-07-03] MEDS ORDERED: TRIAMCINOLONE 0.1% CREAM 80 GM TUBE TOPICAL PRN (21:25)
[2022-07-03] MEDS ORDERED: IPRATROPIUM BROMIDE 0.06% NASAL SPRAY (15 ML) EA NOSTRIL PRN (21:25)
[2022-07-03] MEDS ORDERED: DEXTROSE 50% SYRINGE 50 ML IVP PRN ×2 (21:26)
[2022-07-04] MEDS: LEVOTHYROXINE 75 MCG TAB PO SCH (05:41)
[2022-07-04 07:00] LABS: Glucose,Whole Blood 179 mg/dL (70-110)
[2022-07-04] MEDS: HEPARIN SODIUM,PORCINE/PF 5,000 UNIT/0.5 ML SYRINGE SQ SCH ×2 (08:09→21:08)
[2022-07-04] MEDS: CHOLECALCIFEROL 25 MCG (1000 IU) TABLET PO SCH (08:09)
[2022-07-04] MEDS: FOLIC ACID 1 MG TAB PO SCH (08:10)
[2022-07-04] MEDS: PANTOPRAZOLE 40 MG TABLET PO SCH (08:10)
[2022-07-04] MEDS: INSULIN ASPART (NovoLOG) 100 UNIT/ML VIAL SQ SCH ×4 (08:10→21:22)
--- NOTE | 2022-07-04 09:03 | US ---
EXAMINATION TYPE: US abdomen complete DATE OF EXAM: 07/04/2022 COMPARISON: NONE CLINICAL HISTORY: elevated transaminases, abdominal pain. pain TECHNIQUE: Multiple sonographic images of the abdomen are obtained. Exam limited due to body habitus and bowel gas. FINDINGS: EXAM MEASUREMENTS: Liver Length: 12.6 cm Gallbladder Wall: .2 cm CBD: .4 cm Spleen: 9.3 cm Right Kidney: 9.8 x 4.8 x 4.1 cm Left Kidney: 9.9 x 4.4 x 5.3 cm FIELD SUPPORT REP NOTES: Pancreas: Tail obscured by overlying bowel gas Liver: Increased attenuation Gallbladder: Low level echoes seen. Some sludge may be at the neck of the gallbladder Evidence for sonographic Kasper's sign: No CBD: wnl Spleen: Normal. Left Pleural effusion seen. Right Kidney: No hydronephrosis or masses seen Left Kidney: No hydronephrosis or masses seen Upper IVC: wnl Abd Aorta: wnl IMPRESSION: 1. Sludge within the neck of the gallbladder. 2. Note is made of some left pleural effusion.
[2022-07-04 10:38] LABS: Basophils # (A) 0.04 X 10*3/uL (0.00-0.10); Basophils % (A) 0.3 %; Eosinophils # (A) 0.08 X 10*3/uL (0.04-0.35); Eosinophils % (A) 0.7 %; HGB 10.9 g/dL (12.0-15.0); Immature Grans, Automated 0.6 %; Lymphocytes # (A) 0.64 X 10*3/uL (0.90-5.00); Lymphocytes % (A) 5.3 %; MCH 28.4 pg (27.0-32.0); MCV 85.9 fL (80.0-97.0); Mean Platelet Volume 8.6 fL (9.5-12.2); Monocytes # (A) 1.05 X 10*3/uL (0.20-1.00); Monocytes % (A) 8.6 %; NRBC Per 100 WBC 0 /100 WBCS (0.0-0.0); Neutrophils # (A) 10.28 X 10*3/uL (1.80-7.70); Neutrophils % (A) 84.5 %; Platelet Count 378 X 10*3/uL (140-440); RBC 3.84 X 10*6/uL (4.10-5.20); RDW 13.9 % (11.5-14.5); WBC 12.16 X 10*3/uL (4.50-10.00)
[2022-07-04 10:44] VITALS: BMI 23.7
[2022-07-04 10:51] LABS: African American GFR (CKD) 95.5 (60.0-200.0); Albumin 3.1 g/dL (3.8-4.9); Albumin/Globulin Ratio 1.24 (1.60-3.17); Anion Gap 13.2 mmol/L (10.00-18.00); BUN/Creat Ratio 21.86 Ratio (12.00-20.00); Blood Urea Nitrogen 15.3 mg/dL (9.0-27.0); Calcium 8.6 mg/dL (8.7-10.3); Carbon Dioxide 26.8 mmol/L (20.0-27.5); Globulin 2.5 g/dL (1.6-3.3); Non-African American GFR(CKD) 82.4 (60.0-200.0); Potassium 3.6 mmol/L (3.5-5.5); Total Bilirubin 0.3 mg/dL (0.30-1.20); Total Protein 5.6 g/dL (6.2-8.2)
--- NOTE | 2022-07-04 10:55 | P.HPIM ---
History of Present Illness This is a pleasant 77 years old female with past medical history of right lung cancer since 2016, she is to follow up with Dr. Oquendo and she received 3 cycles of chemotherapy so far. She was recently admitted to the hospital 06/25-06/26 for left pleural effusion status post thoracocentesis of 900 mL of serosanguineous fluid on 06/26, cytology reports show benign results. Presents with exertional dyspnea and dry cough and with no chest pain No urinary or GI symptoms. No headache dizziness weakness or numbness. She isn't 3 L of oxygen at home since last admission Vital signs stable, afebrile, saturating 93% on 2 L oxygen nasal cannula Labs showing mild leukocytosis 12.7 . Risks of CBC, INR, BMP Liver enzymes mildly elevated with AST 74, ALT 52 and bilirubin is normal at 0.6. Troponin is negative and proBNP is local 216 Chest x-ray, showing small to moderate left and small right pleural effusion. With platelike atelectasis in the left lung base on possible 1.2 cm nodule in the left upper lung field Chest ultrasounds, left pleural effusion pocket, with size 8.4 cm EKG showing normal sinus rhythm at [address]-T changes Patient admitted with pulmonary and thoracic surgery consults Review of Systems Review of systems CONSTITUTIONAL: No fever, no malaise, no fatigue. HEENT: No recent visual problems or hearing problems. Denied any sore throat. CARDIOVASCULAR: No orthopnea, PND, no palpitations, no syncope. PULMONARY: No chest wall tenderness, no hemoptysis. GASTROINTESTINAL: No diarrhea, no nausea, no vomiting, no abdominal pain. Normoactive bowel sounds. NEUROLOGICAL: No headaches, no weakness, no numbness. HEMATOLOGICAL: Denies any bleeding or petechiae. GENITOURINARY: Denies any burning micturition, frequency, or urgency. MUSCULOSKELETAL/RHEUMATOLOGICAL: Denies any joint pain, swelling, or any muscle pain. ENDOCRINE: Denies any polyuria or polydipsia. Past Medical History Past Medical History: Cancer, COPD, Diabetes Mellitus, Hyperlipidemia, Hypertension Additional Past Medical History / Comment(s): R LUNG CANCER 2016, type 2 diabetes requiring insulin, lumbar disc disease with previous lumbar laminectomy and discectomy. Osteoarthritis. Osteoporosis and she believes she took Fosamax for this in the past(?Length taken). 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 She did use HRT for 2 or 3 years in the past. pt recently told that her lung cancer is back. recent pet scan done on friday06/21/22. History of Any Multi-Drug Resistant Organisms: None Reported Past Surgical History: Back Surgery, Bladder Surgery, Hysterectomy, Orthopedic Surgery Additional Past Surgical History / Comment(s): 12/01/14 Lumbar laminectomy with decompression L4-5, discectomy L4-L5. Surgical repair of a hiatal hernia for GE reflux, rt cataract, RT LUNG LOWER LOBECTOMY 2015. Vaginal hysterectomy 1983. Patient states she had a colonoscopy approximately in 2015. Past Anesthesia/Blood Transfusion Reactions: No Reported Reaction Additional Past Anesthesia/Blood Transfusion Reaction / Comment(s): Pt has never recieved blood. Past Psychological History: Anxiety Additional Psychological History / Comment(s): She is indepndent. She uses a walker at home. She has no home care agency use. She drives a car. Smoking Status: Former smoker Past Alcohol Use History: None Reported Additional Past Alcohol Use History / Comment(s): Pt started smoking in 1958 and quit in 1995 Past Drug Use History: None Reported - Past Family History Mother Family Medical History: Diabetes Mellitus Additional Family Medical History / Comment(s): Heart disease. Father Family Medical History: No Reported History Sister(s) Family Medical History: Cancer, Diabetes Mellitus Additional Family Medical History / Comment(s): One sister had breast cancer and another sister had bone cancer. Multiple siblings have diabetes. Medications and Allergies Home Medications Medication Instructions Recorded Confirmed Type Acetaminophen/Diphenhydramine 2 tab PO HS 12/29/19 07/03/22 History [Tylenol PM 500-25mg] Folic Acid 1 mg PO DAILY 12/29/19 07/03/22 History Pantoprazole [Protonix] 40 mg PO DAILY 06/28/20 07/03/22 History Albuterol Inhaler [Ventolin Hfa 2 puff INHALATION RT-Q6H PRN 06/25/22 07/03/22 History Inhaler] Cholecalciferol [Vitamin D3 (25 50 mcg PO DAILY 06/25/22 07/03/22 History Mcg = 1000 Iu)] Insulin Glargine,Hum.rec.anlog 23 units SQ HS 06/25/22 07/03/22 History [Lantus Solostar Pen] Levothyroxine Sodium [Synthroid] 75 mcg PO DAILY 06/25/22 07/03/22 History Rosuvastatin Calcium [Crestor] 40 mg PO HS 06/25/22 07/03/22 History Vitamin E (Dl,Tocopheryl Acet) 400 unit PO DAILY 06/25/22 07/03/22 History [Vitamin E (400 Iu = 180 mg)] amLODIPine [Norvasc] 5 mg PO BID 06/25/22 07/03/22 History hydrALAZINE HCL [Apresoline] 50 mg PO BID 06/25/22 07/03/22 History HYDROcodone/APAP 5-325MG [[place] 1 tab PO Q6H PRN 07/03/22 07/03/22 History 5-325] Insulin Lispro [humaLOG Kwikpen] See Protocol SQ AC-TID 07/03/22 07/03/22 History Ipratropium [place] 0.06%Nasal 2 spr EA NOSTRIL BID PRN 07/03/22 07/03/22 History [Atrovent Nasal 0.06%] Triamcinolone 0.1% Cream [Kenalog 1 applic TOPICAL BID PRN 07/03/22 07/03/22 History 0.1% Cream] Allergies Allergy/AdvReac Type Severity Reaction Status Date / Time adhesive Allergy Rash/Hives Verified 07/03/22 18:49 Physical Exam Vitals: Vital Signs Temp Pulse Pulse Resp BP BP Pulse Ox 07/04/22 02:12 98.8 F 88 18 136/71 93 L 07/03/22 20:00 91 20 07/03/22 19:12 99.2 F 91 20 113/65 91 L 07/03/22 18:04 95 18 140/70 94 L 07/03/22 11:30 97.8 F 100 24 113/65 95 Intake and Output 07/03/22 07/03/22 07/04/22 14:59 22:59 06:59 Intake Total 120 0 Balance 120 0 Intake: Oral 120 0 Other: # Voids 2 # Bowel Movements 1 Weight 66.678 kg 66.678 kg GENERAL: The patient is alert and oriented x3, not in any acute distress. Well developed, well nourished. HEENT: Pupils are round and equally reacting to light. EOMI. No scleral icterus. No conjunctival pallor. Normocephalic, atraumatic. No pharyngeal erythema. No thyromegaly. CARDIOVASCULAR: S1 and S2 present. No murmurs, rubs, or gallops. PULMONARY: Chest is clear to auscultation, no wheezing or crackles. ABDOMEN: Soft, nontender, nondistended, normoactive bowel sounds. No palpable organomegaly. MUSCULOSKELETAL: No joint swelling or deformity. EXTREMITIES: No cyanosis, clubbing, or pedal edema. NEUROLOGICAL: Gross neurological examination did not reveal any focal deficits. SKIN: No rashes. no petechiae. Results CBC & Chem 7: 07/04/22 06:57 07/04/22 06:57 Labs: Abnormal Lab Results - Last 24 Hours (Table) 07/03/22 07/03/22 07/03/22 Range/Units 12:51 12:51 20:45 WBC 12.7 H (3.8-10.6) k/uL Neutrophils # 11.5 H (1.3-7.7) k/uL Lymphocytes # 0.4 L (1.0-4.8) k/uL Sodium 133 L (137-145) mmol/L Chloride 95 L (98-107) mmol/L Glucose 186 H (74-99) mg/dL POC Glucose (mg/dL) 283 H (70-110) mg/dL AST 74 H (14-36) U/L ALT 52 H (4-34) U/L Thrombosis Risk Factor Assmnt - Choose All That Apply Any of the Below Risk Factors Present?: Yes Each Factor Represents 1 point: Abnormal pulmonary function (COPD) Each Risk Factor Represents 3 Points: Age 75 years or older Other congenital or acquired thrombophilia - If yes, enter type in comment: No Thrombosis Risk Factor Assessment Total Risk Factor Score: 4 Thrombosis Risk Factor Assessment Level: Moderate Risk Assessment and Plan Assessment: Recurrent left pleural effusion left upper lung nodule 1.0 cm chronic hypoxic respiratory failure Atelectasis non-small cell lung cancer, adenocarcinoma,of the right lungstatus post lumpectomy and chemotherapy Mild transaminitis COPD without exacerbation Diabetes mellitus Hyperlipidemia Hypertension Plan: Pulmonary consult Cardiothoracic surgery consult Labs and medication were reviewed.. Continue same treatment. Continue with symptomatic treatment. Resume home medication. Monitor labs and vitals. DVT and GI prophylaxis. Further recommendations as per clinical course of the patient DVT prophylaxis: Subcutaneous heparin GI Prophylaxis: ppi PT/OT: Pending Prognosis is guarded
[2022-07-04 11:32] LABS: Glucose,Whole Blood 147 mg/dL (70-110)
--- NOTE | 2022-07-04 16:10 | P.CNPUL ---
History of Present Illness Consult date: 07/04/22 Requesting physician: Carol Frost Reason for consult: dyspnea, hypoxemia, pleural effusion, abnormal CXR/CT Chief complaint: Shortness of breath, pleural effusion. History of present illness: Pulmonary consult dated 07/04/2022. 77-year-old female who presents to the emergency department, with complaints of shortness of breath, and weakness. She came into the emergency department, on July 03. The patient has a history of lung cancer. Last week, she was in the hospital, and had a left-sided pleural effusion, drained by my partner. Apparently about 900-950 mL was removed. The patient was discharged, but came back into the hospital, in about a week's time, complaining of increasing shortness of breath. Chest x-ray shows a moderate left-sided pleural effusion and a small right-sided pleural effusion. Cytologic evaluation of the thoracentesis done a week ago or so, was negative for malignancy. There is also a possible 1.2 cm nodule, noted on chest x-ray. It's in the left upper lobe. Obviously the concern is for recurrent lung cancer. The patient had a right lower lobectomy in 2015. She had 3 rounds of chemotherapy but could not tolerate it, and instead, was given immunotherapy with Keytruda. Currently, she is on 2 L of oxygen, and not receiving any IV fluids. White count is 12.16, hemoglobin 10.9, hematocrit 33, and platelet count 378,000. Sodium 135, potassi um 3.6, chlorides 95, CO2 27, BUN 15, creatinine 0.7. Review of Systems REVIEW OF SYSTEMS: CONSTITUTIONAL: Weakness. NEUROLOGIC: [ Negative.] HEENT: [ Negative.] CARDIAC: [Negative.] PULMONARY: Shortness of breath. GI: [Negative.] : [Negative.] RHEUMATOLOGIC: [ Negative.] IMMUNOLOGIC: [ Negative.] ENDOCRINE: [Negative. ] DERMATOLOGIC: [Negative.] Past Medical History Past Medical History: Cancer, COPD, Diabetes Mellitus, Hyperlipidemia, Hypertension Additional Past Medical History / Comment(s): R LUNG CANCER 2016, type 2 diabetes requiring insulin, lumbar disc disease with previous lumbar laminectomy and discectomy. Osteoarthritis. Osteoporosis and she believes she took Fosamax for this in the past(?Length taken). 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 She did use HRT for 2 or 3 years in the past. pt recently told that her lung cancer is back. recent pet scan done on friday06/21/22. History of Any Multi-Drug Resistant Organisms: None Reported Past Surgical History: Back Surgery, Bladder Surgery, Hysterectomy, Orthopedic Surgery Additional Past Surgical History / Comment(s): 12/01/14 Lumbar laminectomy with decompression L4-5, discectomy L4-L5. Surgical repair of a hiatal hernia for GE reflux, rt cataract, RT LUNG LOWER LOBECTOMY 2015. Vaginal hysterectomy 1983. Patient states she had a colonoscopy approximately in 2015. Past Anesthesia/Blood Transfusion Reactions: No Reported Reaction Additional Past Anesthesia/Blood Transfusion Reaction / Comment(s): Pt has never recieved blood. Past Psychological History: Anxiety Additional Psychological History / Comment(s): She is indepndent. She uses a walker at home. She has no home care agency use. She drives a car. Smoking Status: Former smoker Past Alcohol Use History: None Reported Additional Past Alcohol Use History / Comment(s): Pt started smoking in 1958 and quit in 1995 Past Drug Use History: None Reported - Past Family History Mother Family Medical History: Diabetes Mellitus Additional Family Medical History / Comment(s): Heart disease. Father Family Medical History: No Reported History Sister(s) Family Medical History: Cancer, Diabetes Mellitus Additional Family Medical History / Comment(s): One sister had breast cancer and another sister had bone cancer. Multiple siblings have diabetes. Medications and Allergies Home Medications Medication Instructions Recorded Confirmed Type Acetaminophen/Diphenhydramine 2 tab PO HS 12/29/19 07/03/22 History [Tylenol PM 500-25mg] Folic Acid 1 mg PO DAILY 12/29/19 07/03/22 History Pantoprazole [Protonix] 40 mg PO DAILY 06/28/20 07/03/22 History Albuterol Inhaler [Ventolin Hfa 2 puff INHALATION RT-Q6H PRN 06/25/22 07/03/22 History Inhaler] Cholecalciferol [Vitamin D3 (25 50 mcg PO DAILY 06/25/22 07/03/22 History Mcg = 1000 Iu)] Insulin Glargine,Hum.rec.anlog 23 units SQ HS 06/25/22 07/03/22 History [Lantus Solostar Pen] Levothyroxine Sodium [Synthroid] 75 mcg PO DAILY 06/25/22 07/03/22 History Rosuvastatin Calcium [Crestor] 40 mg PO HS 06/25/22 07/03/22 History Vitamin E (Dl,Tocopheryl Acet) 400 unit PO DAILY 06/25/22 07/03/22 History [Vitamin E (400 Iu = 180 mg)] amLODIPine [Norvasc] 5 mg PO BID 06/25/22 07/03/22 History hydrALAZINE HCL [Apresoline] 50 mg PO BID 06/25/22 07/03/22 History HYDROcodone/APAP 5-325MG [[place] 1 tab PO Q6H PRN 07/03/22 07/03/22 History 5-325] Insulin Lispro [humaLOG Kwikpen] See Protocol SQ AC-TID 07/03/22 07/03/22 History Ipratropium [place] 0.06%Nasal 2 spr EA NOSTRIL BID PRN 07/03/22 07/03/22 History [Atrovent Nasal 0.06%] Triamcinolone 0.1% Cream [Kenalog 1 applic TOPICAL BID PRN 07/03/22 07/03/22 History 0.1% Cream] Allergies Allergy/AdvReac Type Severity Reaction Status Date / Time adhesive Allergy Rash/Hives Verified 07/03/22 18:49 Physical Exam Osteopathic Statement: *. No significant issues noted on an osteopathic structural exam other than those noted in the History and Physical/Consult. Vitals: Vital Signs Temp Pulse Pulse Resp BP BP Pulse Ox 07/04/22 13:34 98.1 F 91 18 133/74 97 07/04/22 12:26 18 98 07/04/22 08:55 18 07/04/22 07:45 98.3 F 88 18 147/79 90 L 07/04/22 02:12 98.8 F 88 18 136/71 93 L 07/03/22 20:00 91 20 07/03/22 19:12 99.2 F 91 20 113/65 91 L 07/03/22 18:04 95 18 140/70 94 L Intake and Output 07/04/22 07/04/22 07/04/22 06:59 14:59 22:59 Intake Total 0 Balance 0 Intake: Oral 0 Other: Voiding Method Toilet # Voids 2 # Bowel Movements 1 Weight 66.678 kg No acute distress, oriented 3. No conversational dyspnea or use of accessory muscles. The patient's currently on 3 L with saturations of 97%. HEENT examination is grossly unremarkable. Neck supple. Full range of motion. No adenopathy thyromegaly or neck vein distention. Cardiovascular examination reveals regular rhythm rate. S1-S2 normal. No S3 or S4. No discernible murmur noted. Heart rate 91 bpm. Lungs reveal diminished breath sounds at the left lung base. Dullness at the left lung base. No wheezes or rhonchi. No crackles. Saturations on 3 L are 97%. Abdomen soft bowel sounds are heard. No masses or tenderness. Extremities are intact. No cyanosis clubbing or edema. Skin is without rash or lesion. Neurologic examination is brief but nonfocal. Results - Laboratory Findings CBC and BMP: 07/04/22 06:57 07/04/22 06:57 PT/INR, D-dimer PT 10.2 sec (9.0-12.0) 07/03/22 12:51 INR 1.0 (<1.2) 07/03/22 12:51 Abnormal lab findings: Abnormal Labs 07/03/22 07/03/22 07/03/22 12:51 12:51 20:45 WBC 12.7 H RBC Hgb Hct MPV Immature Gran # Neutrophils # 11.5 H Lymphocytes # 0.4 L Monocytes # Sodium 133 L Chloride 95 L BUN/Creatinine Ratio Glucose 186 H POC Glucose (mg/dL) 283 H Calcium AST 74 H ALT 52 H Total Protein Albumin Albumin/Globulin Ratio 07/04/22 07/04/22 07/04/22 06:57 06:57 06:59 WBC 12.16 H RBC 3.84 L Hgb 10.9 L Hct 33.0 L MPV 8.6 L Immature Gran # 0.07 H Neutrophils # 10.28 H Lymphocytes # 0.64 L Monocytes # 1.05 H Sodium Chloride 95 L BUN/Creatinine Ratio 21.86 H Glucose 185 H POC Glucose (mg/dL) 179 H Calcium 8.6 L AST 51 H ALT 45 H Total Protein 5.6 L Albumin 3.1 L Albumin/Globulin Ratio 1.24 L 07/04/22 11:30 WBC RBC Hgb Hct MPV Immature Gran # Neutrophils # Lymphocytes # Monocytes # Sodium Chloride BUN/Creatinine Ratio Glucose POC Glucose (mg/dL) 147 H Calcium AST ALT Total Protein Albumin Albumin/Globulin Ratio - Diagnostic Findings Chest x-ray: image reviewed Assessment and Plan Assessment: Recurrent left-sided pleural effusion, and shortness of breath, possibly related to recurrent malignancy. Prior history right lower lobectomy for adenocarcinoma, 2015, followed by chemotherapy for 3 rounds, and subsequent immunotherapy with Keytruda. History of COPD. History of hyperlipidemia. History of diabetes mellitus. History of hypertension. Plan: Plan dated 07/04/2022. We will have cardiothoracic surgery see the patient, for possible placement of Pleurx catheter. If they decide that the Pleurx catheter should not be placed, we will do a thoracentesis on this patient. It is bothersome, that the patient had a thoracentesis done about a week ago, with 900 mL removed, and the patient is back in the hospital in such a short time, with ongoing shortness of breath. to follow make recommendations along the way. Prognosis is certainly guarded. Time with Patient: Greater than 30
[2022-07-04 16:59] LABS: Glucose,Whole Blood 331 mg/dL (70-110)
--- NOTE | 2022-07-04 18:02 | CT ---
EXAMINATION TYPE: CT chest wo con DATE OF EXAM: 07/04/2022 COMPARISON: 06/04/2022 HISTORY: Pleural effusion. CT DLP: 221.5 mGycm Automated exposure control for dose reduction was used. Images obtained from the thoracic inlet to the diaphragm without contrast. There is a moderate size left pleural effusion. There is airspace infiltrate and atelectasis in the l eft lower lobe. There is some loculation of the pleural fluid along the anterior left chest wall. The right lung is fairly clear. There is coronary artery calcification. There is bronchial cartilage marcel cification. The thoracic spine is intact. No compression fracture. IMPRESSION: Loculated left pleural effusion is increased compared to old exam and empyema should be considered. A lso consider mesothelioma. There is some infiltrate and atelectasis in the left lower lobe which is i ncreased. Atherosclerotic vascular disease. Minimal pleural scarring at the right lung base without c hange.
[2022-07-04 20:49] LABS: Glucose,Whole Blood 230 mg/dL (70-110)
[2022-07-04] MEDS ORDERED: HEPARIN SODIUM,PORCINE/PF 5,000 UNIT/0.5 ML SYRINGE SQ SCH (21:00)
[2022-07-04] MEDS: INSULIN DETEMIR (LEVEMIR) 100 UNIT/ML SYR SQ SCH (21:08)
[2022-07-04] MEDS: ATORVASTATIN 80 MG TAB PO SCH (21:08)
[2022-07-04] MEDS: FAMOTIDINE 20 MG/2 ML VIAL IV SCH (21:10)
[2022-07-04] MEDS: diphenhydrAMINE 25 MG CAP PO PRN (21:22)
[2022-07-04] MEDS: DOCUSATE 100 MG CAP PO SCH (21:27)
[2022-07-05] MEDS: LEVOTHYROXINE 75 MCG TAB PO SCH (06:27)
[2022-07-05 07:05] LABS: Glucose,Whole Blood 87 mg/dL (70-110)
[2022-07-05] MEDS: CHOLECALCIFEROL 25 MCG (1000 IU) TABLET PO SCH (08:24)
[2022-07-05] MEDS: DOCUSATE 100 MG CAP PO SCH ×2 (08:24→20:08)
[2022-07-05] MEDS: PANTOPRAZOLE 40 MG TABLET PO SCH (08:24)
[2022-07-05] MEDS: FAMOTIDINE 20 MG/2 ML VIAL IV SCH ×2 (08:24→20:08)
[2022-07-05] MEDS: FOLIC ACID 1 MG TAB PO SCH (08:24)
[2022-07-05] MEDS: INSULIN ASPART (NovoLOG) 100 UNIT/ML VIAL SQ SCH ×4 (08:24→20:45)
--- NOTE | 2022-07-05 08:24 | P.GSCN ---
History of Present Illness Consult date: 07/05/22 Reason for Consult: Recurrent left-sided pleural effusion, possible malignant effusion Requesting physician: De Sweet History of present illness: This is a 77-year-old female patient who is followed on an outpatient basis by Dr. Isael Humphries for her primary care, with Dr. Queen for her pulmonary care and what Dr. Oquendo for her oncology care. Just past medical history significant for adenocarcinoma of the lung and is status post a right lower lobectomy, 3 rounds of chemotherapy in 2016, COPD, insulin-dependent diabetes mellitus, hypertension, hyperlipidemia, hypothyroid, remote history of nicotine dependence in which she quit smoking over 25 years ago, osteoarthritis and degenerative joint disease status post lumbar laminectomy. Recently, over the past 4-6 weeks the patient has had complaints of progressive shortness of breath, nonproductive cough and hypoxemia. The patient also reports that she has had episodes of pain across her left anterior chest. She was recently admitted to the hospital for similar complaints of shortness of breath 1-2 weeks ago. She reports she was discharged after undergoing a left-sided thoracentesis with 900 mL of pleural fluid drained by Dr. Queen. The patient denies any recent fever, chills, nausea, vomiting, diarrhea, hemoptysis, hematemesis, lightheadedness, headache, or recent trauma. Currently she is using home oxygen with 3 L nasal cannula. On admission the patient underwent a chest x-ray which showed a small to moderate left and small right pleural effusion, platelike atelectasis to the left lung base and a possible 1.2 cm nodule to her left upper lung field. Due to the findings of a left pleural effusion and ultrasound of her chest was co mpleted which showed a left pleural effusion pocket size measuring 8.4 cm. Patient also underwent a PET scan on 06/23/2022 which demonstrated multiple areas of metabolic activity along the left pulmonary pleura concerning for pleural metastatic disease with associated malignant pleural effusion. S ubsequently, due to the patient's symptoms, recent thoracentesis and recurrence of left pleural effusion and a consult was placed to Dr. Elie Hyde for possible Pleurx catheter placement. A computed tomography scan of the chest was completed yesterday 07/04/2022 which the report demonstrated a moderate sized left pleural effusion with some loculation of the pleural fluid along the anterior left chest wall, atherosclerotic vascular disease and minimal pleural scarring at the right lung base without change. Initial laboratory results showed a WBC count of 12.7, hemoglobin 12.7, hematocrit 37.9, platelets 442, PT 10.2, INR 1.0, PTT 26.5, d-dimer 3.98, sodium 133, potassium 3.8, chloride 95, CO2 30, BUN 16, creatinine 0.76, glucose 186, troponin less than 0.012, AST 74 and ALT 52. The patient's T-max temperature in the last 24 hours has been 99.7F. Review of Systems This is a 77-year-old female patient who is followed on an outpatient basis by Dr. Isael Humphries for her primary care, with Dr. Queen for her pulmonary care and what Dr. Oquendo for her oncology care. Just past medical history significant for adenocarcinoma of the lung and is status post a right lower lobectomy, 3 rounds of chemotherapy in 2016, COPD, insulin-dependent diabetes mellitus, hypertension, hyperlipidemia, hypothyroid, remote history of nicotine dependence in which she quit smoking over 25 years ago, osteoarthritis and degenerative joint disease status post lumbar laminectomy. Recently, over the past 4-6 weeks the patient has had complaints of progressive shortness of breath, nonproductive cough and hypoxemia. The patient also reports that she has had episodes of pain across her left anterior chest. She was recently admitted to the hospital for similar complaints of shortness of breath 1-2 weeks ago. She reports she was discharged after undergoing a left-sided thoracentesis with 900 mL of pleural fluid drained by Dr. Queen. The patient denies any recent fever, chills, nausea, vomiting, diarrhea, hemoptysis, hematemesis, lightheadedness, headache, or recent trauma. Currently she is using home oxygen with 3 L nasal cannula. On admission the patient underwent a chest x-ray which showed a small to moderate left and small right pleural effusion, platelike atelectasis to the left lung base and a possible 1.2 cm nodule to her left upper lung field. Due to the findings of a left pleural effusion and ultrasound of her chest was completed which showed a left pleural effusion pocket size measuring 8.4 cm. Patient also underwent a PET scan on 06/23/2022 which demonstrated multiple areas of metabolic activity along the left pulmonary pleura concerning for pleural metastatic disease with associated malignant pleural effusion. Subsequently, due to the patient's symptoms, recent thoracentesis and recurrence of left pleural effusion and a consult was placed to Dr. Elie Hyde for possible Pleurx catheter placement. A computed tomography scan of the chest was completed yesterday 07/04/2022 which the report demonstrated a moderate sized left pleural effusion with some loculation of the pleural fluid along the anterior left chest wall, atherosclerotic vascular disease and minimal pleural scarring at the right lung base without change. Initial laboratory results showed a WBC count of 12.7, hemoglobin 12.7, hematocrit 37.9, platelets 442, PT 10.2, INR 1.0, PTT 26.5, d-dimer 3.98, sodium 133, potassium 3.8, chloride 95, CO2 30, BUN 16, creatinine 0.76, glucose 186, troponin less than 0.012, AST 74 and ALT 52. The patient's T-max temperature in the last 24 hours has been 99.7F. Past Medical History Past Medical History: Cancer (History of adenocarcinoma, status post right lower lobectomy in 2016), COPD, Diabetes Mellitus (Insulin-dependent), Hyperlipidemia, Hypertension, Osteoarthritis (OA), Thyroid Disorder Additional Past Medical History / Comment(s): R LUNG CANCER 2016, type 2 diabetes requiring insulin, lumbar disc disease with previous lumbar laminectomy and discectomy. Osteoarthritis. Osteoporosis and she believes she took Fosamax for this in the past(?Length taken). PAST [employer] HISTORY: She has no history of STDs. She did use HRT for 2 or 3 years in the past. pt recently told that her lung cancer is back. recent pet scan done on friday06/21/22. History of Any Multi-Drug Resistant Organisms: None Reported Past Surgical History: Back Surgery, Bladder Surgery, Hysterectomy, Orthopedic Surgery Additional Past Surgical History / Comment(s): 12/01/14 Lumbar laminectomy with decompression L4-5, discectomy L4-L5. Surgical repair of a hiatal hernia for GE reflux, bilateral cataracts, RT LUNG LOWER LOBECTOMY 2015. Vaginal hysterectomy 1983. Patient states she had a colonoscopy approximately in 2015. Past Anesthesia/Blood Transfusion Reactions: No Reported Reaction Additional Past Anesthesia/Blood Transfusion Reaction / Comm: Pt has never recieved blood. Past Psychological History: Anxiety Additional Psychological History / Comment(s): She is indepndent. She uses a walker at home. She has no home care agency use. She drives a car. Smoking Status: Former smoker (Quit smoking over 25 years ago) Past Alcohol Use History: None Reported Additional Past Alcohol Use History / Comment(s): Pt started smoking in 1958 and quit in 1995 Past Drug Use History: None Reported - Past Family History Mother Family Medical History: Diabetes Mellitus Additional Family Medical History / Comment(s): Heart disease. Father Family Medical History: CVA/TIA, Myocardial Infarction ([place]) Sister(s) Family Medical History: Cancer, Diabetes Mellitus Additional Family Medical History / Comment(s): One sister had breast cancer and another sister had bone cancer. Multiple siblings have diabetes. Medications and Allergies Home Medications Medication Instructions Recorded Confirmed Type Acetaminophen/Diphenhydramine 2 tab PO HS 12/29/19 07/03/22 History [Tylenol PM 500-25mg] Folic Acid 1 mg PO DAILY 12/29/19 07/03/22 History Pantoprazole [Protonix] 40 mg PO DAILY 06/28/20 07/03/22 History Albuterol Inhaler [Ventolin Hfa 2 puff INHALATION RT-Q6H PRN 06/25/22 07/03/22 History Inhaler] Cholecalciferol [Vitamin D3 (25 50 mcg PO DAILY 06/25/22 07/03/22 History Mcg = 1000 Iu)] Insulin Glargine,Hum.rec.anlog 23 units SQ HS 06/25/22 07/03/22 History [Lantus Solostar Pen] Levothyroxine Sodium [Synthroid] 75 mcg PO DAILY 06/25/22 07/03/22 History Rosuvastatin Calcium [Crestor] 40 mg PO HS 06/25/22 07/03/22 History Vitamin E (Dl,Tocopheryl Acet) 400 unit PO DAILY 06/25/22 07/03/22 History [Vitamin E (400 Iu = 180 mg)] amLODIPine [Norvasc] 5 mg PO BID 06/25/22 07/03/22 History hydrALAZINE HCL [Apresoline] 50 mg PO BID 06/25/22 07/03/22 History HYDROcodone/APAP 5-325MG [[place] 1 tab PO Q6H PRN 07/03/22 07/03/22 History 5-325] Insulin Lispro [humaLOG Kwikpen] See Protocol SQ AC-TID 07/03/22 07/03/22 Histo ry Ipratropium [place]atten 0.06%Nasal 2 spr EA NOSTRIL BID PRN 07/03/22 07/03/22 History [Atrovent Nasal 0.06%] Triamcinolone 0.1% Cream [Kenalog 1 applic TOPICAL BID PRN 07/03/22 07/03/22 History 0.1% Cream] Allergies Allergy/AdvReac Type Severity Reaction Status Date / Time adhesive Allergy Rash/Hives Verified 07/03/22 18:49 Surgical - Exam Vital Signs Temp Pulse Resp BP Pulse Ox 97.8 F 100 24 113/65 95 07/03/22 11:30 07/03/22 11:30 07/03/22 11:30 07/03/22 11:30 07/03/22 11:30 - General well developed, well nourished, no distress, no pain, chronically ill - Eyes PERRL, normal ocular movement, no pale, no icteric - ENT normal pinna, normal nares, normal mucosa, no hearing loss, no congestion - Neck Neck is supple, no lymphadenopathy. no masses, no bruits, trachea midline, no venous distension - Respiratory Lung sounds essentially diminished throughout, diminished to her bilateral bases left greater than right. Respirations are symmetrical and nonlabored. No wheezes, rhonchi or crackles. Oxygen saturation is 93% on 3 L nasal cannula. - Cardiovascular Regular rhythm and rate. S1 and S2 present, negative for S3, gallop or murmur. No edema present. Peripheral pulses palpable. - Abdomen Abdomen is soft, nontender and nondistended. Active bowel sounds present all 4 abdominal quadrants. No guarding or rigidity. No organomegaly appreciated. - Genitourinary Deferred - Rectum Deferred - Integumentary Skin is warm and dry. No clubbing or cyanosis is present. no rash, no growths, no abnormal pigmentation - Neurologic No focal deficits. normal coordination, normal sensation - Musculoskeletal Moves all 4 extremities with equal strength bilaterally. normal gait - Psychiatric oriented to time, oriented to person, oriented to place, speech is normal, memory intact Results - Labs 07/04/22 06:57 07/04/22 06:57 Abnormal Lab Results - Last 24 Hours (Table) 07/04/22 07/04/22 07/04/22 Range/Units 06:57 06:57 11:30 WBC 12.16 H (4.50-10.00) X 10*3/uL RBC 3.84 L (4.10-5.20) X 10*6/uL Hgb 10.9 L (12.0-15.0) g/dL Hct 33.0 L (37.2-46.3) % MPV 8.6 L (9.5-12.2) fL Immature Gran # 0.07 H (0.00-0.04) X 10*3/uL Neutrophils # 10.28 H (1.80-7.70) X 10*3/uL Lymphocytes # 0.64 L (0.90-5.00) X 10*3/uL Monocytes # 1.05 H (0.20-1.00) X 10*3/uL D-Dimer (<0.60) mg/L FEU Chloride 95 L (96-109) mmol/L BUN/Creatinine Ratio 21.86 H (12.00-20.00) Ratio Glucose 185 H (70-110) mg/dL POC Glucose (mg/dL) 147 H (70-110) mg/dL Calcium 8.6 L (8.7-10.3) mg/dL AST 51 H (13-35) U/L ALT 45 H (8-44) U/L Total Protein 5.6 L (6.2-8.2) g/dL Albumin 3.1 L (3.8-4.9) g/dL Albumin/Globulin Ratio 1.24 L (1.60-3.17) g/dL 07/04/22 07/04/22 07/04/22 Range/Units 16:19 16:57 20:43 WBC (4.50-10.00) X 10*3/uL RBC (4.10-5.20) X 10*6/uL Hgb (12.0-15.0) g/dL Hct (37.2-46.3) % MPV (9.5-12.2) fL Immature Gran # (0.00-0.04) X 10*3/uL Neutrophils # (1.80-7.70) X 10*3/uL Lymphocytes # (0.90-5.00) X 10*3/uL Monocytes # (0.20-1.00) X 10*3/uL D-Dimer 3.98 H (<0.60) mg/L FEU Chloride (96-109) mmol/L BUN/Creatinine Ratio (12.00-20.00) Ratio Glucose (70-110) mg/dL POC Glucose (mg/dL) 331 H 230 H (70-110) mg/dL Calcium (8.7-10.3) mg/dL AST (13-35) U/L ALT (8-44) U/L Total Protein (6.2-8.2) g/dL Albumin (3.8-4.9) g/dL Albumin/Globulin Ratio (1.60-3.17) g/dL Diabetes panel 07/04/22 Range/Units 06:57 Sodium 135 (135-145) mmol/L Potassium 3.6 (3.5-5.5) mmol/L Chloride 95 L (96-109) mmol/L Carbon Dioxide 26.8 (20.0-27.5) mmol/L BUN 15.3 (9.0-27.0) mg/dL Creatinine 0.7 (0.6-1.5) mg/dL Glucose 185 H (70-110) mg/dL Calcium 8.6 L (8.7-10.3) mg/dL AST 51 H (13-35) U/L ALT 45 H (8-44) U/L Alkaline Phosphatase 81 (41-126) U/L Total Protein 5.6 L (6.2-8.2) g/dL Albumin 3.1 L (3.8-4.9) g/dL Calcium panel 07/04/22 Range/Units 06:57 Calcium 8.6 L (8.7-10.3) mg/dL Albumin 3.1 L (3.8-4.9) g/dL Pituitary panel 07/04/22 Range/Units 06:57 Sodium 135 (135-145) mmol/L Potassium 3.6 (3.5-5.5) mmol/L Chloride 95 L (96-109) mmol/L Carbon Dioxide 26.8 (20.0-27.5) mmol/L BUN 15.3 (9.0-27.0) mg/dL Creatinine 0.7 (0.6-1.5) mg/dL Glucose 185 H (70-110) mg/dL Calcium 8.6 L (8.7-10.3) mg/dL Adrenal panel 07/04/22 Range/Units 06:57 Sodium 135 (135-145) mmol/L Potassium 3.6 (3.5-5.5) mmol/L Chloride 95 L (96-109) mmol/L Carbon Dioxide 26.8 (20.0-27.5) mmol/L BUN 15.3 (9.0-27.0) mg/dL Creatinine 0.7 (0.6-1.5) mg/dL Glucose 185 H (70-110) mg/dL Calcium 8.6 L (8.7-10.3) mg/dL Total Bilirubin 0.30 (0.30-1.20) mg/dL AST 51 H (13-35) U/L ALT 45 H (8-44) U/L Alkaline Phosphatase 81 (41-126) U/L Total Protein 5.6 L (6.2-8.2) g/dL Albumin 3.1 L (3.8-4.9) g/dL - Imaging Chest x-ray: report reviewed, image reviewed CT scan - chest: report reviewed, image reviewed EKG: image reviewed Assessment and Plan Assessment: 1. Recurrent left-sided pleural effusion, possibly related to recurrent malignancy, status post PET scan on 06/23/2022 with multiple areas showing metabolic activity along the left pulmonary pleura concerning for pleural metastatic disease with associated malignant pleural effusion, status post left- sided thoracentesis on 06/26/2022 with cytology negative for malignancy 2. Shortness of breath, likely secondary to above 3. History of lung cancer, adenocarcinoma, status post right lower lobectomy in 2016 followed by 3 rounds of chemotherapy and subsequent immunotherapy with Keytruda 4. Chronic obstructive pulmonary disease, on home oxygen 3 L nasal cannula 5. Hypertension 6. Hyperlipidemia, treated 7. Thyroid disorder 8. Insulin-dependent diabetes mellitus 9. Remote history of nicotine dependence quit smoking over 25 years ago 10. Osteoarthritis 11. Degenerative disc disease, status post lumbar laminectomy Plan: The patient was seen and examined at her bedside on the fifth floor medical surgical oncology unit. Her chart and diagnostics were reviewed. Her case was discussed in detail with Dr. Elie Hyde from cardiothoracic surgery. She is nothing by mouth, treatment options were discussed including placement of left- sided Pleurx catheter. Risks and benefits of the procedure were discussed with the patient. Knowing and understanding the risks of works catheter placement the patient wishes to proceed. The patient is scheduled for left Pleurx vonnie ter placement this afternoon 07/05/2022. Encourage use of incentive spirometry 10 times every hour while awake. Medical management and other comorbidities per primary care service and pulmonary/critical care service. Continue to monitor daily chest x-rays. Once that Pleurx is placed bedside teaching on Pleurx care will be completed with the patient and family. Case management has been consult ed for home care and Pleurx care management. Thank you Dr. Sweet for this consult and we look forward to working with you in the care of this patient. I have personally seen and examined the patient, performed the documentation and the assessment and plan as written. 30 minutes spent on the visit . Meek PADILLA
[2022-07-05] MEDS: HEPARIN SODIUM,PORCINE/PF 5,000 UNIT/0.5 ML SYRINGE SQ SCH ×2 (08:25→20:08)
--- NOTE | 2022-07-05 08:50 | XR ---
EXAMINATION TYPE: XR chest 1V portable DATE OF EXAM: 07/05/2022 Comparison: 07/03/2022 Clinical History: 77-year-old female pleural effusion Findings: Atherosclerotic calcifications throughout the aorta. Increasing moderate left pleural effusion. Under lying nodularity redemonstrated on the left measuring up to 2.9 cm. Blunted lateral right costophreni c angle could represent additional trace effusion or scarring. Impression: Increasing moderate left pleural effusion with adjacent atelectasis and/or consolidation. Underlying nodularity also persists on the left measuring up to 2.9 cm. Probable pleural parenchymal scarring at the right base.
[2022-07-05 10:52] LABS: Basophils # (A) 0.05 X 10*3/uL (0.00-0.10); Basophils % (A) 0.5 %; Eosinophils # (A) 0.18 X 10*3/uL (0.04-0.35); Eosinophils % (A) 1.8 %; HCT 34.8 % (37.2-46.3); HGB 11.4 g/dL (12.0-15.0); Immature Grans, Automated 0.6 %; Lymphocytes # (A) 0.88 X 10*3/uL (0.90-5.00); Lymphocytes % (A) 8.8 %; MCH 27.9 pg (27.0-32.0); MCHC 32.8 g/dL (32.0-37.0); MCV 85.1 fL (80.0-97.0); Mean Platelet Volume 8.6 fL (9.5-12.2); Monocytes # (A) 1.04 X 10*3/uL (0.20-1.00); Monocytes % (A) 10.3 %; NRBC Per 100 WBC 0 /100 WBCS (0.0-0.0); Neutrophils # (A) 7.84 X 10*3/uL (1.80-7.70); Platelet Count 401 X 10*3/uL (140-440); RBC 4.09 X 10*6/uL (4.10-5.20); RDW 13.7 % (11.5-14.5); WBC 10.05 X 10*3/uL (4.50-10.00)
[2022-07-05 11:10] LABS: African American GFR (CKD) 81.3 (60.0-200.0); Anion Gap 12.6 mmol/L (10.00-18.00); BUN/Creat Ratio 15.88 Ratio (12.00-20.00); Blood Urea Nitrogen 12.7 mg/dL (9.0-27.0); Calcium 8.8 mg/dL (8.7-10.3); Carbon Dioxide 28.4 mmol/L (20.0-27.5); Non-African American GFR(CKD) 70.1 (60.0-200.0); Potassium 3.6 mmol/L (3.5-5.5)
[2022-07-05 11:21] LABS: Glucose,Whole Blood 110 mg/dL (70-110)
--- NOTE | 2022-07-05 12:47 | P.PN ---
Subjective This is a pleasant 77 years old female with past medical history of right lung cancer since 2016, she is to follow up with Dr. Oquendo and she received 3 cycles of chemotherapy so far. She was recently admitted to the hospital 06/25-06/26 for left pleural effusion status post thoracocentesis of 900 mL of serosanguineous fluid on 06/26, cytology reports show benign results. Presents with exertional dyspnea and dry cough and with no chest pain No urinary or GI symptoms. No headache dizziness weakness or numbness. She isn't 3 L of oxygen at home since last admission Vital signs stable, afebrile, saturating 93% on 2 L oxygen nasal cannula Labs showing mild leukocytosis 12.7 . Risks of CBC, INR, BMP Liver enzymes mildly elevated with AST 74, ALT 52 and bilirubin is normal at 0.6. Troponin is negative and proBNP is local 216 Chest x-ray, showing small to moderate left and small right pleural effusion. With platelike atelectasis in the left lung base on possible 1.2 cm nodule in the left upper lung field Chest ultrasounds, left pleural effusion pocket, with size 8.4 cm EKG showing normal sinus rhythm at [address]-T changes Patient admitted with pulmonary and thoracic surgery consults 07/05/2022 Patient still complaining from shortness of breath with no coughing, no chest pain. Patient currently is waiting for placement of left Pleurx by cardiothoracic surgery team at 1 PM today. Her Vitas looks stable, she had low-grade temperature of 99.7 yesterday, no more fever today. Her leukocytosis is improving down to 10.8. Her tachypnea is less severe compared to yesterday. She is saturating 92-93% on 3 L oxygen via nasal cannula. Repeat chest x-ray showing worsening left pleural effusion with atelectasis/consolidation with left long nodule 2.9 cm patient states that she follow up with Dr. Cuellar as an outpatient, she hasn't seen him recently she is A follow-up with him upon discharge otherwise she agrees to follow up with office follow-up as well. She stated last time she follow up with Dr. Llamas Objective - Vital Signs Vital signs: Vital Signs Temp 98.2 F 07/05/22 07:37 Pulse 92 07/05/22 07:37 Resp 18 07/05/22 07:37 BP 148/75 07/05/22 07:37 Pulse Ox 92 L 07/05/22 07:37 FiO2 Intake & Output 07/04/22 07/05/22 07/05/22 18:59 06:59 18:59 Intake Total 0 Balance 0 Weight 66.678 kg Intake: Oral 0 Other: Voiding Method Toilet Toilet # Voids 2 1 - Labs CBC & Chem 7: 07/05/22 07:05 07/05/22 07:05 Labs: Abnormal Lab Results - Last 24 Hours (Table) 07/04/22 07/04/22 07/04/22 Range/Units 16:19 16:57 20:43 WBC (4.50-10.00) X 10*3/uL RBC (4.10-5.20) X 10*6/uL Hgb (12.0-15.0) g/dL Hct (37.2-46.3) % MPV (9.5-12.2) fL Immature Gran # (0.00-0.04) X 10*3/uL Neutrophils # (1.80-7.70) X 10*3/uL Lymphocytes # (0.90-5.00) X 10*3/uL Monocytes # (0.20-1.00) X 10*3/uL D-Dimer 3.98 H (<0.60) mg/L FEU Chloride (96-109) mmol/L Carbon Dioxide (20.0-27.5) mmol/L POC Glucose (mg/dL) 331 H 230 H (70-110) mg/dL Procalcitonin (0.02-0.09) ng/mL 07/05/22 07/05/22 07/05/22 Range/Units 07:05 07:05 07:05 WBC 10.05 H (4.50-10.00) X 10*3/uL RBC 4.09 L (4.10-5.20) X 10*6/uL Hgb 11.4 L (12.0-15.0) g/dL Hct 34.8 L (37.2-46.3) % MPV 8.6 L (9.5-12.2) fL Immature Gran # 0.06 H (0.00-0.04) X 10*3/uL Neutrophils # 7.84 H (1.80-7.70) X 10*3/uL Lymphocytes # 0.88 L (0.90-5.00) X 10*3/uL Monocytes # 1.04 H (0.20-1.00) X 10*3/uL D-Dimer (<0.60) mg/L FEU Chloride 95 L (96-109) mmol/L Carbon Dioxide 28.4 H (20.0-27.5) mmol/L POC Glucose (mg/dL) (70-110) mg/dL Procalcitonin 0.17 H (0.02-0.09) ng/mL Assessment and Plan Assessment: Recurrent left pleural effusion left upper lung nodule 1.0 cm chronic hypoxic respiratory failure Atelectasis non-small cell lung cancer, adenocarcinoma,of the right lungstatus post lumpectomy and chemotherapy Mild transaminitis COPD without exacerbation Diabetes mellitus Hyperlipidemia Hypertension Plan: Pulmonary consult Cardiothoracic surgery consult with the plan for Pleurx catheter today Hematology/oncology consult. Labs and medication were reviewed.. Continue same treatment. Continue with symptomatic treatment. Resume home medication. Monitor labs and vitals. DVT and GI prophylaxis. Further recommendations as per clinical course of the patient DVT prophylaxis: Subcutaneous heparin GI Prophylaxis: ppi PT/OT: Pending Prognosis is guarded
[2022-07-05] MEDS ORDERED: LACTATED RINGERS 1,000 ML IV ONE (13:18)
[2022-07-05] MEDS ORDERED: ONDANSETRON 4 MG/2 ML VIAL ONE (13:21)
[2022-07-05] MEDS ORDERED: ONDANSETRON 4 MG/2 ML VIAL IVP ONE (13:27)
[2022-07-05] MEDS ORDERED: FAMOTIDINE 20 MG/2 ML VIAL IVP ONE (13:28)
[2022-07-05] MEDS ORDERED: KETAMINE 10 MG/ML 20 ML VIAL ONE (14:08)
[2022-07-05] MEDS ORDERED: MIDAZOLAM 2 MG/2 ML VIAL ONE (14:08)
[2022-07-05] MEDS ORDERED: fentaNYL (PF) 50 MCG/ML 2 ML AMP ONE (14:08)
[2022-07-05] MEDS ORDERED: LIDOCAINE 1% INJ 10MG/ML (5 ML VIAL-PF) SQ ONE (14:26)
--- NOTE | 2022-07-05 15:02 | FL ---
Intraoperative/procedural fluoroscopic services were provided for left side Pleurx catheter placement . Total fluoroscopy time is 2 seconds with a total of 3 submitted images to PACS. Please see the oper ative note for further details.
--- NOTE | 2022-07-05 15:02 | P.OP ---
Date of Procedure: 07/05/22 Preoperative Diagnosis: Left recurrent hydrothorax, history of lung CA Postoperative Diagnosis: Same Procedure(s) Performed: Chest Pleurx catheter placement with fluoroscopic guidance and drainage of pleural effusion Implants: Left Pleurx catheter Anesthesia: MAC Surgeon: Elie Hyde Estimated Blood Loss (ml): 2 IV fluids (ml): 800 Urine output (ml): 0 Pathology: other (Left pleural fluid for cytology) Condition: stable Disposition: PACU Indications for Procedure: 77-year-old female who is 6 years status post lower lobectomy proved to be stage IIIa lung cancer. She had a partial course of chemotherapy but did not tolerate it well. Following this she was placed on K Trudo. His done well but more recently has developed recurrent pleural effusion. Cytology has been negative to date. Computed tomography scan has demonstrated pleural implants consistent with metastatic carcinoma. Patient presents at this time with shortness of breath and recurrent pleural effusion on the left. Pleurx catheter was indicated. Operative Findings: 1200 mL of serous pleural fluid was drained. Drainage was stopped once the patient developed discomfort and the fluid started to turn sanguinous. Fluoroscopy at this point demonstrated good reexpansion of the lower portion of the lung. Pleurx catheter was in good position. Description of Procedure: Patient was brought to the operating room and placed supine on the table. The left lower chest and left upper quadrant were sterilely prepped and draped. IV sedation was given. Skin overlying the seventh interspace in the anterior axillary line was anesthetized with 2% lidocaine and skinny needle used to confirm localization at this point. 2% lidocaine was used to anesthetize the intercostal space here. 18-gauge needle was then used to puncture the pleural cavity at this point. Serous fluid was obtained. Guidewire was threaded under fluoroscopic visualization into the left pleural space. Lidocaine was then used to anesthetize the skin below the costal margin in the left upper quadrant. The guidewire entry site was enlarged to just over a centimeter and a just under and centimeter incision was made at the in the left upper quadrant. Pleurx catheter was tunneled from the left upper quadrant to the guidewire site and the cuff was positioned just under the skin in the left upper quadrant. Introducer and dilator were placed over the guidewire under fluoroscopic visualization and then the catheter was placed through the introducer sheath into the left pleural space and the introducer sheath was removed. Fluoroscopy confirmed placement of the purse catheter in the pleural space in good position. Pleurx catheter was connected to suction and 1200 mL of serous fluid was obtained. Following this it was capped. Pleurx catheter was secured at the exit site with a 2-0 silk suture ligature. The entry site was closed with a 4-0 Vicryl suture and skin glue. Standard Pleurx dressing was applied. Patient was transferred to recovery in stable condition. Fluoroscopy prior to leaving the operating room showed good expansion of the left lower lobe.
--- NOTE | 2022-07-05 15:12 | P.PN ---
Subjective Progress Note Date: 07/05/22 Principal diagnosis: Left pleural effusion. 77-year-old female who presents to the emergency department, with complaints of shortness of breath, and weakness. She came into the emergency department, on July 03. The patient has a history of lung cancer. Last week, she was in the hospital, and had a left-sided pleural effusion, drained by my partner. Apparently about 900-950 mL was removed. The patient was discharged, but came back into the hospital, in about a week's time, complaining of increasing shortness of breath. Chest x-ray shows a moderate left-sided pleural effusion and a small right-sided pleural effusion. Cytologic evaluation of the thoracentesis done a week ago or so, was negative for malignancy. There is also a possible 1.2 cm nodule, noted on chest x-ray. It's in the left upper lobe. Obviously the concern is for recurrent lung cancer. The patient had a right lower lobectomy in 2015. She had 3 rounds of chemotherapy but could not tolerat e it, and instead, was given immunotherapy with Keytruda. Currently, she is on 2 L of oxygen, and not receiving any IV fluids. White count is 12.16, hemoglobin 10.9, hematocrit 33, and platelet count 378,000. Sodium 135, potassium 3.6, chlorides 95, CO2 27, BUN 15, creatinine 0.7. Patient is being reevaluated today on 07/05/2022 on a general medical floor. He is sitting up in bed comfortable on 3 L nasal cannula. Denies any worsening in her shortness of breath. She is scheduled for insertion of a left Pleurx catheter by cardiothoracic surgery today. Her only real complaint is a lesion on the medial, dorsal side of her tongue. She has a scheduled appointment outpatient with her ENT for biopsy. In the meantime, I recommend salt and soda mouthwashes. Chest CT from 07/04/2022 shows a loculated left pleural effusion which has increased compared to previous exam, and some surrounding infiltrate and atelectasis in the left lower lobe. Also some minimal pleural scarring at the right lung base without change from prior exam. Chest x-ray from today shows increasing moderate left pleural effusion with adjacent atelectasis and/or consolidation. There is also a left lung nodule measuring up to 2.9 cm. Patient has known history of lung CA. CBC from today is stable with a WBC count of 10, hemoglobin 11.4, hematocrit 34.8, platelets 401,000. Patient is known to have chronic anemia. Patient is receiving heparin for DVT prophylaxis and Protonix for GI prophylaxis. All vital signs remained stable. Objective - Vital Signs Vital signs: Vital Signs Temp 98.6 F 07/05/22 14:52 Pulse 89 07/05/22 14:52 Resp 18 07/05/22 14:52 BP 129/59 07/05/22 14:52 Pulse Ox 96 07/05/22 14:52 FiO2 Intake & Output 07/04/22 07/05/22 07/05/22 18:59 06:59 18:59 Intake Total 0 250 Output Total 2 Balance 0 248 Weight 66.678 kg Intake: IV 250 Oral 0 Output: Estimated Blood Loss 2 Other: Voiding Method Toilet Toilet # Voids 2 1 - Exam No acute distress, oriented 3. No conversational dyspnea or use of accessory muscles. The patient's currently on 3 L with saturations of 92%. HEENT examination is grossly unremarkable. There is also a midline lesion on the dorsal surface of the tongue. No obvious ulcerations, Sara, masses. Neck supple. Full range of motion. No adenopathy thyromegaly or neck vein distention. Cardiovascular examination reveals regular rhythm rate. S1-S2 normal. No S3 or S4. No discernible murmur noted. Heart rate 91 bpm. Lungs reveal diminished breath sounds at the left lung base. Dullness at the left lung base. No wheezes or rhonchi. No crackles. Saturations on 3 L are 92%. Abdomen soft bowel sounds are heard. No masses or tenderness. Extremities are intact. No cyanosis clubbing or edema. Skin is without rash or lesion. Neurologic examination is brief but nonfocal - Labs CBC & Chem 7: 07/05/22 07:05 07/05/22 07:05 Labs: Abnormal Lab Results - Last 24 Hours (Table) 07/04/22 07/04/22 07/04/22 Range/Units 16:19 16:57 20:43 WBC (4.50-10.00) X 10*3/uL RBC (4.10-5.20) X 10*6/uL Hgb (12.0-15.0) g/dL Hct (37.2-46.3) % MPV (9.5-12.2) fL Immature Gran # (0.00-0.04) X 10*3/uL Neutrophils # (1.80-7.70) X 10*3/uL Lymphocytes # (0.90-5.00) X 10*3/uL Monocytes # (0.20-1.00) X 10*3/uL D-Dimer 3.98 H (<0.60) mg/L FEU Chloride (96-109) mmol/L Carbon Dioxide (20.0-27.5) mmol/L POC Glucose (mg/dL) 331 H 230 H (70-110) mg/dL Procalcitonin (0.02-0.09) ng/mL 07/05/22 07/05/22 07/05/22 Range/Units 07:05 07:05 07:05 WBC 10.05 H (4.50-10.00) X 10*3/uL RBC 4.09 L (4.10-5.20) X 10*6/uL Hgb 11.4 L (12.0-15.0) g/dL Hct 34.8 L (37.2-46.3) % MPV 8.6 L (9.5-12.2) fL Immature Gran # 0.06 H (0.00-0.04) X 10*3/uL Neutrophils # 7.84 H (1.80-7.70) X 10*3/uL Lymphocytes # 0.88 L (0.90-5.00) X 10*3/uL Monocytes # 1.04 H (0.20-1.00) X 10*3/uL D-Dimer (<0.60) mg/L FEU Chloride 95 L (96-109) mmol/L Carbon Dioxide 28.4 H (20.0-27.5) mmol/L POC Glucose (mg/dL) (70-110) mg/dL Procalcitonin 0.17 H (0.02-0.09) ng/mL Assessment and Plan Assessment: Recurrent left-sided pleural effusion, and shortness of breath, possibly related to recurrent malignancy. Prior history right lower lobectomy for adenocarcinoma, 2016, followed by chemotherapy for 3 rounds, and subsequent immunotherapy with Keytruda. Anemia, chronic History of COPD. History of hyperlipidemia. History of diabetes mellitus. History of hypertension. Plan: Patient's medications, labs, chest x-ray, chest CT were reviewed. Patient is scheduled for left Pleurx catheter insertion today. Continue supplemental oxygen to maintain oxygen saturation of 92% or greater. Oncology is following We will continue to follow I have personally seen and examined the patient, performed the documentation and the assessment and plan as written. Number of minutes spent on the visit: [ 10]. Time with Patient: Less than 30
[2022-07-05 15:15] LABS: Glucose,Whole Blood 117 mg/dL (70-110)
--- NOTE | 2022-07-05 15:17 | XR ---
EXAMINATION TYPE: XR chest 1V portable DATE OF EXAM: 07/05/2022 Comparison: 07/05/2022 Clinical History: 77-year-old female Pleural Catheter placement Findings: Left-sided pleural catheter has been placed. There is a residual small left pleural effusion but with prominent patchy left mid and lower lung opacities remaining. Suggestion of some underlying nodulari ty left upper lobe and lateral left midlung. Continued blunting lateral costophrenic angle, probably pleural parenchymal scarring. Atherosclerotic calcifications throughout the thoracic aorta. Heart upp er limits of normal in size. No appreciable pneumothorax. Impression: 1. Interval placement of a left sided pleural catheter. Only a small residual left effusion remains t shivam there is persistent prominent patchy left mid and lower lung opacity. 2. Underlying nodularity lateral mid lung and left upper lobe redemonstrated.
[2022-07-05 17:24] LABS: Glucose,Whole Blood 143 mg/dL (70-110)
--- NOTE | 2022-07-05 19:12 | P.CONS ---
History of Present Illness - Reason for Consult Consult date: 07/05/22 Recurrent lung adenocarcinoma Requesting physician: Carol Frost - Chief Complaint SOB - History of Present Illness Pt is a pleasant 77-year-old female patient of Dr. Oquendo who had an abnormal lung cancer screening CT 02/2016. Suspicious 2.2 cm mass in the right lower lobe, additional nonspecific 2-3 mm left lung nodes. PET 03/22 revealed a suspicious uptake in the right lung mass, otherwise negative. She was seen by Dr. Mc, thoracic surgeon, [facility], CT guided biopsy 03/26/16, positive for adenocarcinoma. She had a right lower lobectomy here in [place] with mediastinal lymph node biopsy 06/03/16, final path report 3 cm adenocarcinoma, grade 3, visceral pleural invasion present, metastases to mediastinal nodes, pT2a, pN2, margins negative. 07/04/[address] chest revealed significant right pleural effusion. 07/10/16 thoracentesis and cytology positive for metastatic adenocarcinoma. Patient was started on carboplatin/Alimta 07/10/16-initially adjuvant intent, prior to cytology-next generation sequencing and PDL ordered, no targeted mutations, PDL 1 was 80%. She did continue on palliative intent chemotherapy for a total of 3 cycles, cycle for held due to severe fatigue. Repeat CT scans continued to show no evidence of progression or recurrence until 09/24/17, slight increase in size of a mediastinal lymph node. PET 11/08/17 positive lymph nodes. She was started on PDL1 inhibitor Pembrolizumab. Treatment follow-up CT chest 02/11/18 revealed significant improvement. 06/04/18 CT CAP stable findings compared to February scan. Patient unfortunately required treatment for hypothyroidism, felt to be related to immunotherapy. She was also checked for nephritis in early because of elevated creatinine, thought may be related to immunotherapy, imaging showed no evidence of the same. She continued on treatment until December 2019. Follow-up imaging showed no evidence of disease or recurrence. In late May 2022 patient presented with left arm and shoulder pain, sent for a CT to rule out a PE, no clot but small left pleural effusion, associated atelectasis, nodular thickening along the left upper lobe, nodule in the left lower lobe concerning for metastatic disease. PET scan We reviewed PET scan results from 06/23/22-increased SUV in lt pleura, lt pleural effusion, consistent with malignancy. It was recommended that she have biopsy for path to confirm if this is original malignancy from rt lung that has spread or, a new primary. Plan is to send specimen off for NGS and PD-L1 testing, if new primary-possible targeted agent/IO-If recurrent disease, very reasonable to re challenge with keytruda as previously she did very well with it-on 2 years without evidence of disease. She did have drainage of the pleural effusion 06/26/22-no cytologically malignant cells were seen. She did have a follow-up appointment scheduled with CTS Dr. Andrea, pending plan. Patient is currently admitted for persistent shortness of breath. Past Medical History Past Medical History: Cancer (History of adenocarcinoma, status post right lower lobectomy in 2016), COPD, Diabetes Mellitus (Insulin-dependent), Hyperlipidemia, Hypertension, Osteoarthritis (OA), Thyroid Disorder Additional Past Medical History / Comment(s): R LUNG CANCER 2016, type 2 diabetes requiring insulin, lumbar disc disease with previous lumbar laminectomy and discectomy. Osteoarthritis. Osteoporosis and she believes she took Fosamax for this in the past(?Length taken). 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 She did use HRT for 2 or 3 years in the past. pt recently told that her lung cancer is back. recent pet scan done on friday06/21/22. History of Any Multi-Drug Resistant Organisms: None Reported Past Surgical History: Back Surgery, Bladder Surgery, Hysterectomy, Orthopedic Surgery Additional Past Surgical History / Comment(s): 12/01/14 Lumbar laminectomy with decompression L4-5, discectomy L4-L5. Surgical repair of a hiatal hernia for GE reflux, bilateral cataracts, RT LUNG LOWER LOBECTOMY 2015. Vaginal hysterectomy 1983. Patient states she had a colonoscopy approximately in 2016. Past Anesthesia/Blood Transfusion Reactions: No Reported Reaction Additional Past Anesthesia/Blood Transfusion Reaction / Comm: Pt has never rec ieved blood. Past Psychological History: Anxiety Additional Psychological History / Comment(s): She is indepndent. She uses a walker at home. She has no home care agency use. She drives a car. Smoking Status: Former smoker (Quit smoking over 25 years ago) Past Alcohol Use History: None Reported Additional Past Alcohol Use History / Comment(s): Pt started smoking in 1959 and quit in 1995 Past Drug Use History: None Reported - Past Family History Mother Family Medical History: Diabetes Mellitus Additional Family Medical History / Comment(s): Heart disease. Father Family Medical History: CVA/TIA, Myocardial Infarction ([place]) Sister(s) Family Medical History: Cancer, Diabetes Mellitus Additional Family Medical History / Comment(s): One sister had breast cancer and another sister had bone cancer. Multiple siblings have diabetes. Medications and Allergies Home Medications Medication Instructions Recorded Confirmed Type Acetaminophen/Diphenhydramine 2 tab PO HS 12/29/19 07/03/22 History [Tylenol PM 500-25mg] Folic Acid 1 mg PO DAILY 12/29/19 07/03/22 History Pantoprazole [Protonix] 40 mg PO DAILY 06/28/20 07/03/22 History Albuterol Inhaler [Ventolin Hfa 2 puff INHALATION RT-Q6H PRN 06/25/22 07/03/22 History Inhaler] Cholecalciferol [Vitamin D3 (25 50 mcg PO DAILY 06/25/22 07/03/22 History Mcg = 1000 Iu)] Insulin Glargine,Hum.rec.anlog 23 units SQ HS 06/25/22 07/03/22 History [Lantus Solostar Pen] Levothyroxine Sodium [Synthroid] 75 mcg PO DAILY 06/25/22 07/03/22 History Rosuvastatin Calcium [Crestor] 40 mg PO HS 06/25/22 07/03/22 History Vitamin E (Dl,Tocopheryl Acet) 400 unit PO DAILY 06/25/22 07/03/22 History [Vitamin E (400 Iu = 180 mg)] amLODIPine [Norvasc] 5 mg PO BID 06/25/22 07/03/22 History hydrALAZINE HCL [Apresoline] 50 mg PO BID 06/25/22 07/03/22 History HYDROcodone/APAP 5-325MG [[place] 1 tab PO Q6H PRN 07/03/22 07/03/22 History 5-325] Insulin Lispro [humaLOG Kwikpen] See Protocol SQ AC-TID 07/03/22 07/03/22 History Ipratropium [place] 0.06%Nasal 2 spr EA NOSTRIL BID PRN 07/03/22 07/03/22 History [Atrovent Nasal 0.06%] Triamcinolone 0.1% Cream [Kenalog 1 applic TOPICAL BID PRN 07/03/22 07/03/22 History 0.1% Cream] Allergies Allergy/AdvReac Type Severity Reaction Status Date / Time adhesive Allergy Rash/Hives Verified 07/03/22 18:49 Physical Exam Vitals: Vital Signs Temp Pulse Resp BP Pulse Ox 07/05/22 07:37 98.2 F 92 18 148/75 92 L 07/05/22 02:00 97.7 F 85 18 135/77 93 L 07/04/22 20:00 20 07/04/22 19:19 99.7 F H 92 20 134/73 97 07/04/22 13:34 98.1 F 91 18 133/74 97 Intake and Output 07/04/22 07/05/22 07/05/22 22:59 06:59 14:59 Intake Total 0 Balance 0 Intake: Oral 0 Other: Voiding Method Toilet # Voids 2 1 Results CBC & Chem 7: 07/05/22 07:05 07/05/22 07:05 Labs: Abnormal Lab Results - Last 24 Hours (Table) 07/04/22 07/04/22 07/04/22 Range/Units 16:19 16:57 20:43 WBC (4.50-10.00) X 10*3/uL RBC (4.10-5.20) X 10*6/uL Hgb (12.0-15.0) g/dL Hct (37.2-46.3) % MPV (9.5-12.2) fL Immature Gran # (0.00-0.04) X 10*3/uL Neutrophils # (1.80-7.70) X 10*3/uL Lymphocytes # (0.90-5.00) X 10*3/uL Monocytes # (0.20-1.00) X 10*3/uL D-Dimer 3.98 H (<0.60) mg/L FEU Chloride (96-109) mmol/L Carbon Dioxide (20.0-27.5) mmol/L POC Glucose (mg/dL) 331 H 230 H (70-110) mg/dL Procalcitonin (0.02-0.09) ng/mL 07/05/22 07/05/22 07/05/22 Range/Units 07:05 07:05 07:05 WBC 10.05 H (4.50-10.00) X 10*3/uL RBC 4.09 L (4.10-5.20) X 10*6/uL Hgb 11.4 L (12.0-15.0) g/dL Hct 34.8 L (37.2-46.3) % MPV 8.6 L (9.5-12.2) fL Immature Gran # 0.06 H (0.00-0.04) X 10*3/uL Neutrophils # 7.84 H (1.80-7.70) X 10*3/uL Lymphocytes # 0.88 L (0.90-5.00) X 10*3/uL Monocytes # 1.04 H (0.20-1.00) X 10*3/uL D-Dimer (<0.60) mg/L FEU Chloride 95 L (96-109) mmol/L Carbon Dioxide 28.4 H (20.0-27.5) mmol/L POC Glucose (mg/dL) (70-110) mg/dL Procalcitonin 0.17 H (0.02-0.09) ng/mL Assessment and Plan (1) Dyspnea Current Visit: Yes Status: Acute Priority: High Code(s): R06.00 - DYSPNEA, UNSPECIFIED SNOMED Code(s): 294742201 (2) Pleural effusion Current Visit: Yes Status: Acute Priority: High Code(s): J90 - PLEURAL EFFUSION, NOT ELSEWHERE CLASSIFIED SNOMED Code(s): 52704312 (3) Lung cancer Current Visit: Yes Status: Acute Priority: High Code(s): C34.90 - MALIGNANT NEOPLASM OF UNSP PART OF UNSP BRONCHUS OR LUNG SNOMED Code(s): 804459580 Plan: Pt NOT seen, attempted twice to see. She was off unit for pleurex drain placement. Agree with plan at this time. Hopefully drain will allow pt to maintain resp comfort and improve mobility. Plan as stated in HPI regarding recurrent vs new malignancy, want to continue with plan as stated. Will see in formal consult as soon as able.
[2022-07-05] MEDS: ATORVASTATIN 80 MG TAB PO SCH (20:08)
[2022-07-05 20:43] LABS: Glucose,Whole Blood 314 mg/dL (70-110)
[2022-07-05] MEDS: INSULIN DETEMIR (LEVEMIR) 100 UNIT/ML SYR SQ SCH (20:45)
[2022-07-05] MEDS: diphenhydrAMINE 25 MG CAP PO PRN (20:49)
[2022-07-06] MEDS: LEVOTHYROXINE 75 MCG TAB PO SCH (05:34)
[2022-07-06 07:28] LABS: Glucose,Whole Blood 126 mg/dL (70-110)
[2022-07-06] MEDS: INSULIN ASPART (NovoLOG) 100 UNIT/ML VIAL SQ SCH ×2 (07:29→11:28)
--- NOTE | 2022-07-06 07:30 | XR ---
EXAMINATION TYPE: XR chest 2V DATE OF EXAM: 07/06/2022 6:56 AM COMPARISON: Chest radiographs from 07/05/2022, CT 07/04/2022. TECHNIQUE: XR chest 2V Frontal and lateral views of the chest. CLINICAL INDICATION:Female, 77 years old with history of Pleural Catheter placement; FINDINGS: Lungs/Pleura: There is a blunting of the left costophrenic angle. There is associated atelectasis. Th ere remains nodularity along the lateral wall consistent with loculated pleural effusion versus pleur al metastatic disease. Pulmonary vascularity: Unremarkable. Heart/mediastinum: Cardiomediastinal silhouette is unremarkable. Musculoskeletal: No acute osseous pathology. Other findings: None Lines/Tubes: Left thoracotomy tube is present without evidence of pneumothorax. IMPRESSION: Left thoracotomy tube with tip projecting over the left lung apex. Redemonstration of suspected loculated left pleural effusion.
[2022-07-06 07:47] VITALS: RESP 16
[2022-07-06] MEDS: FAMOTIDINE 20 MG/2 ML VIAL IV SCH (09:21)
[2022-07-06] MEDS: DOCUSATE 100 MG CAP PO SCH (09:21)
[2022-07-06] MEDS: FOLIC ACID 1 MG TAB PO SCH (09:21)
[2022-07-06] MEDS: PANTOPRAZOLE 40 MG TABLET PO SCH (09:21)
[2022-07-06] MEDS: CHOLECALCIFEROL 25 MCG (1000 IU) TABLET PO SCH (09:21)
[2022-07-06] MEDS: HEPARIN SODIUM,PORCINE/PF 5,000 UNIT/0.5 ML SYRINGE SQ SCH ×2 (09:22→09:29)
--- NOTE | 2022-07-06 10:14 | P.PN ---
Subjective Progress Note Date: 07/06/22 Principal diagnosis: Recurrent left-sided pleural effusion. History of lung cancer, adenocarcinoma, status post right lower lobectomy in 2016 followed by 3 rounds of chemotherapy and subsequent immunotherapy with Keytruda, chronic obstructive pulmonary disease, on home oxygen 3 L nasal cannula, hypertension, hyperlipidemia, thyroid disorder, insulin-dependent diabetes mellitus, previous tobacco dependence, osteoarthritis, degenerative disc disease, status post lumbar laminectomy POD #1 left-sided Pleurx catheter placement with fluoroscopy guidance and drainage of pleural effusion, 1200 mL serous fluid draining The patient was seen and examined spurring sitting up in bed in no acute distress on the medical oncology unit. Denies any significant chest pain or shortness of breath. Left sided Pleurx catheter was placed yesterday without difficulty. Anticipate discharge to home soon. No other new concerns. Objective - Vital Signs Vital signs: Vital Signs Temp 98.9 F 07/06/22 07:25 Pulse 83 07/06/22 07:25 Resp 16 07/06/22 07:25 BP 126/65 07/06/22 07:25 Pulse Ox 96 07/06/22 07:25 FiO2 Intake & Output 07/05/22 07/06/22 07/06/22 18:59 06:59 18:59 Intake Total 300 600 Output Total 2 Balance 298 600 Intake: IV 300 Oral 600 Output: Estimated Blood Loss 2 Other: Voiding Method Toilet # Voids 3 1 1 - Exam CONSTITUTIONAL: Appears comfortable, cooperative, no acute distress RESPIRATORY: Lungs sounds diminished bilaterally. Respirations even, nonlabored. Currently on 3 L nasal cannula with oxygen saturation 96% CARDIOVASCULAR: S1, S2 present. Regular rate and rhythm. Palpable peripheral pulses bilaterally. No edema present. GASTROINTESTINAL: Abdomen soft, nontender, nondistended. Active bowel sounds present 4 quadrants. Tolerating diet. GENITOURINARY: Continues to void INTEGUMENTARY: Skin is warm and dry NEUROLOGIC: Cranial nerves II through XII intact MUSKULOSKELETAL: Able to move all extremities, strength equal bilaterally PSYCHIATRIC: Alert and oriented to person place and time, appropriate affect, intact judgment and insight INVASIVE LINES AND TUBES: Left sided Pleurx catheter present under clean dressing - Allied health notes Allied health notes reviewed: nursing - Labs CBC & Chem 7: 07/05/22 07:05 07/05/22 07:05 Labs: Abnormal Lab Results - Last 24 Hours (Table) 07/05/22 07/05/22 07/05/22 Range/Units 07:05 07:05 07:05 WBC 10.05 H (4.50-10.00) X 10*3/uL RBC 4.09 L (4.10-5.20) X 10*6/uL Hgb 11.4 L (12.0-15.0) g/dL Hct 34.8 L (37.2-46.3) % MPV 8.6 L (9.5-12.2) fL Immature Gran # 0.06 H (0.00-0.04) X 10*3/uL Neutrophils # 7.84 H (1.80-7.70) X 10*3/uL Lymphocytes # 0.88 L (0.90-5.00) X 10*3/uL Monocytes # 1.04 H (0.20-1.00) X 10*3/uL Chloride 95 L (96-109) mmol/L Carbon Dioxide 28.4 H (20.0-27.5) mmol/L POC Glucose (mg/dL) (70-110) mg/dL Procalcitonin 0.17 H (0.02-0.09) ng/mL 07/05/22 07/05/22 07/05/22 Range/Units 15:12 17:21 20:41 WBC (4.50-10.00) X 10*3/uL RBC (4.10-5.20) X 10*6/uL Hgb (12.0-15.0) g/dL Hct (37.2-46.3) % MPV (9.5-12.2) fL Immature Gran # (0.00-0.04) X 10*3/uL Neutrophils # (1.80-7.70) X 10*3/uL Lymphocytes # (0.90-5.00) X 10*3/uL Monocytes # (0.20-1.00) X 10*3/uL Chloride (96-109) mmol/L Carbon Dioxide (20.0-27.5) mmol/L POC Glucose (mg/dL) 117 H 143 H 314 H (70-110) mg/dL Procalcitonin (0.02-0.09) ng/mL 07/06/22 Range/Units 07:27 WBC (4.50-10.00) X 10*3/uL RBC (4.10-5.20) X 10*6/uL Hgb (12.0-15.0) g/dL Hct (37.2-46.3) % MPV (9.5-12.2) fL Immature Gran # (0.00-0.04) X 10*3/uL Neutrophils # (1.80-7.70) X 10*3/uL Lymphocytes # (0.90-5.00) X 10*3/uL Monocytes # (0.20-1.00) X 10*3/uL Chloride (96-109) mmol/L Carbon Dioxide (20.0-27.5) mmol/L POC Glucose (mg/dL) 126 H (70-110) mg/dL Procalcitonin (0.02-0.09) ng/mL - Imaging and Cardiology Chest x-ray: report reviewed, image reviewed Assessment and Plan Assessment: 1. Recurrent left-sided pleural effusion, status post left-sided thoracentesis on 06/26/2022 with cytology negative for malignancy, status post left-sided Pleurx catheter placement 2. Shortness of breath, likely secondary to above 3. History of lung cancer, adenocarcinoma, status post right lower lobectomy in 2016 followed by 3 rounds of chemotherapy and subsequent immunotherapy with Keytruda 4. Chronic obstructive pulmonary disease, on home oxygen 3 L nasal cannula 5. Hypertension 6. Hyperlipidemia, treated 7. Thyroid disorder 8. Insulin-dependent diabetes mellitus 9. Remote history of nicotine dependence quit smoking over 25 years ago 10. Osteoarthritis 11. Degenerative disc disease, status post lumbar laminectomy Plan: 1. Pleurx catheter drained for very minimal serous drainage, patient taught Pleurx drainage 2. Prescription for Pleurx bottle filled out, given to case management, home care being ordered 3. Discharge instructions regarding Pleurx catheter placed on discharge plan 4. Patient stable for discharge from our standpoint when okay with other services 5. May contact our office for removal once the drainage from Pleurx has been less than 50 mL for 3 drainages
[2022-07-06 11:17] LABS: Glucose,Whole Blood 139 mg/dL (70-110)
--- NOTE | 2022-07-06 11:52 | P.PN ---
Subjective Progress Note Date: 07/06/22 Principal diagnosis: Shortness of breath. Left pleural effusion. 77-year-old female who presents to the emergency department, with complaints of shortness of breath, and weakness. She came into the emergency department, on July 03. The patient has a history of lung cancer. Last week, she was in the hospital, and had a left-sided pleural effusion, drained by my partner. Apparently about 900-950 mL was removed. The patient was discharged, but came back into the hospital, in about a week's time, complaining of increasing shortness of breath. Chest x-ray shows a moderate left-sided pleural effusion and a small right-sided pleural effusion. Cytologic evaluation of the thoracentesis done a week ago or so, was negative for malignancy. There is also a possible 1.2 cm nodule, noted on chest x-ray. It's in the left upper lobe. Obviously the concern is for recurrent lung cancer. The patient had a right lower lobectomy in 2015. She had 3 rounds of chemotherapy but could not tolerate it, and instead, was given immunotherapy with Keytruda. Currently, she is on 2 L of oxygen, and not receiving any IV fluids. White count is 12.16, hemoglobin 10.9, hematocrit 33, and platelet count 378,000. Sodium 135, potassium 3.6, chlorides 95, CO2 27, BUN 15, creatinine 0.7. Patient is being reevaluated today on 07/05/2022 on a general medical floor. He is sitting up in bed comfortable on 3 L nasal cannula. Denies any worsening in her shortness of breath. She is scheduled for insertion of a left Pleurx catheter by cardiothoracic surgery today. Her only real complaint is a lesion on the medial, dorsal side of her tongue. She has a scheduled appointment ou tpatient with her ENT for biopsy. In the meantime, I recommend salt and soda mouthwashes. Chest CT from 07/04/2022 shows a loculated left pleural effusion which has increased compared to previous exam, and some surrounding infiltrate and atelectasis in the left lower lobe. Also some minimal pleural scarring at the right lung base without change from prior exam. Chest x-ray from today shows increasing moderate left pleural effusion with adjacent atelectasis and/or consolidation. There is also a left lung nodule measuring up to 2.9 cm. Patient has known history of lung CA. CBC from today is stable with a WBC count of 10, hemoglobin 11.4, hematocrit 34.8, platelets 401,000. Patient is known to have chronic anemia. Patient is receiving heparin for DVT prophylaxis and Protonix for GI prophylaxis. All vital signs remained stable. Progress note dated 07/06/2020. 77-year-old female, postop day #1, status post Pleurx catheter placement on the left. The patient remains on 2 L of oxygen. The patient is having some pain on deep breathing. She's not receiving any IV fluids. No new labs today other than a glucose of 139. Her pro-calcitonin level from yesterday was 0.17. Her chest x-ray from this morning, was evaluated. Objective - Vital Signs Vital signs: Vital Signs Temp 98.9 F 07/06/22 07:25 Pulse 83 07/06/22 07:25 Resp 16 07/06/22 07:25 BP 126/65 07/06/22 07:25 Pulse Ox 96 07/06/22 07:25 FiO2 Intake & Output 07/05/22 07/06/22 07/06/22 18:59 06:59 18:59 Intake Total 300 600 Output Total 2 Balance 298 600 Intake: IV 300 Oral 600 Output: Estimated Blood Loss 2 Other: Voiding Method Toilet # Voids 3 1 1 - Exam No acute distress, oriented 3. Currently on 3 L. HEENT examination is grossly unremarkable. Neck supple. Full range of motion. No adenopathy thyromegaly or neck vein distention. Cardiovascular examination reveals regular rhythm rate. S1-S2 normal. No S3 or S4. No discernible murmur noted. Heart rate is 83 bpm. Lungs reveal mostly clear breath sounds. Rhonchi are noted. She winces when she takes a deep breath. 3 L saturation is 96%. No crackles are noted. Abdomen soft bowel sounds are heard. No masses or tenderness. Extremities are intact. No cyanosis clubbing or edema. Skin is without rash or lesion. Neurologic examination is brief but nonfocal. - Labs CBC & Chem 7: 07/05/22 07:05 07/05/22 07:05 Labs: Abnormal Lab Results - Last 24 Hours (Table) 07/05/22 07/05/22 07/05/22 Range/Units 15:12 17:21 20:41 POC Glucose (mg/dL) 117 H 143 H 314 H (70-110) mg/dL 07/06/22 07/06/22 Range/Units 07:27 11:16 POC Glucose (mg/dL) 126 H 139 H (70-110) mg/dL Assessment and Plan Assessment: Recurrent left-sided pleural effusion, and shortness of breath, possibly related to recurrent malignancy, S/P Pleurx catheter placement, 07/05/2022, postop day #1. Prior history right lower lobectomy for adenocarcinoma, 2016, followed by chemotherapy for 3 rounds, and subsequent immunotherapy with Keytruda. History of COPD. History of hyperlipidemia. History of diabetes mellitus. History of hypertension. Plan: Plan dated 07/04/2022. We will have cardiothoracic surgery see the patient, for possible placement of Pleurx catheter. If they decide that the Pleurx catheter should not be placed, we will do a thoracentesis on this patient. It is bothersome, that the patient had a thoracentesis done about a week ago, with 900 mL removed, and the patient is back in the hospital in such a short time, with ongoing shortness of breath. to follow make recommendations along the way. Prognosis is certainly guarded. Plan dated 07/06/2022. The patient is seen in room 522. She remains on 3 L. Yesterday, she had a left-sided Pleurx catheter placed. We will continue to follow make recommendations along the way. Labs, x-rays, and medications are reviewed. Nothing to add more at this point. Prognosis is certainly guarded given her hi story of lung cancer. Time with Patient: Less than 30
--- NOTE | 2022-07-06 12:45 | P.PN ---
Subjective Progress Note Date: 07/06/22 -Placement of left Pleurx catheter 07/05/2022 through IR without complications -No acute events overnight -Ms. Rinaldi notes have continued fatigue, denies any dyspnea currently. She has minor postprocedural discomfort from Pleurx catheter placement -She denies any nausea or vomiting currently or prior to admission Objective - Vital Signs Vital signs: Vital Signs Temp 98.9 F 07/06/22 07:25 Pulse 83 07/06/22 07:25 Resp 16 07/06/22 07:25 BP 126/65 07/06/22 07:25 Pulse Ox 96 07/06/22 07:25 FiO2 Intake & Output 07/05/22 07/06/22 07/06/22 18:59 06:59 18:59 Intake Total 300 600 Output Total 2 Balance 298 600 Intake: IV 300 Oral 600 Output: Estimated Blood Loss 2 Other: Voiding Method Toilet # Voids 3 1 1 - Constitutional General appearance: Present: no acute distress, thin - EENT Eyes: Present: EOMI - Respiratory Respiratory: left: other (Inspiratory crackles most prominent at the left lung base) - Cardiovascular Details: Pleurx catheter in the lower left chest wall site covered with dry gauze Rhythm: regular Heart sounds: normal: S1, S2 - Gastrointestinal General gastrointestinal: Present: soft. Absent: distended, tenderness - Integumentary Integumentary: Absent: rash - Neurologic Neurologic: Present: CNII-XII intact - Psychiatric Psychiatric: Present: A&O x's 3, appropriate affect, intact judgment & insight - Labs CBC & Chem 7: 07/05/22 07:05 07/05/22 07:05 Labs: Abnormal Lab Results - Last 24 Hours (Table) 07/05/22 07/05/22 07/05/22 Range/Units 15:12 17:21 20:41 POC Glucose (mg/dL) 117 H 143 H 314 H (70-110) mg/dL 07/06/22 07/06/22 Range/Units 07:27 11:16 POC Glucose (mg/dL) 126 H 139 H (70-110) mg/dL - Imaging and Cardiology Chest x-ray: report reviewed Assessment and Plan Assessment: Ms. Rinaldi is a 77-year-old woman with a past medical history significant for adenocarcinoma of the right lower lobe urgently diagnosed in March 2016 status post resection and 3 cycles of carboplatin/Alimta, which she tolerated poorly. She later found to have recurrence in the mediastinal lymph nodes and 2018 and subsequently received single agent pembrolizumab for approximately 2 years with no evidence of disease progression and was most recently found to have left-sided pleural effusion and left lower lobe lung nodules on PET/CT on 06/23/2022 concerning for disease recurrence off immunotherapy. She had thoracentesis on 06/26/2022, with cytology being negative. She was readmitted on 07/04/2022 with increased shortness of breath. (1) Large pleural effusion Current Visit: No Status: Acute Priority: High Code(s): J90 - PLEURAL EFFUSION, NOT ELSEWHERE CLASSIFIED SNOMED Code(s): 98888295 (2) Malignant neoplasm of lower lobe, right bronchus or lung Current Visit: No Status: Chronic Code(s): C34.31 - MALIGNANT NEOPLASM OF LOWER LOBE, RIGHT BRONCHUS OR LUNG SNOMED Code(s): 661170177 Plan: #Left pleural effusion -Likely secondary to lung cancer -Pleural fluid from thoracentesis on 06/26/2022 revealed negative cytology -She had Pleurx catheter placement with interventional radiology on 07/05/2022 which he tolerated without complications -Drainage and management of Pleurx catheter per primary and pulmonology recommendations, appreciate their assistance #Lung cancer -Originally had right lower lobe adenocarcinoma status post right lower lobe resection followed by 3 cycles of adjuvant carboplatin and Alimta in 2015 -She was found to have mediastinal lymph node recurrence in 2018 with PD-L1 of 80% and was subsequently started on single agent pembrolizumab for 2 years -Most recent PET/CT on 06/23/2022 indicates new findings of FDG avid left ple ural effusion and left lower lobe lung nodules concerning for malignancy -It's unclear if this represents a recurrence of her malignancy or a new lung primary cancer -She will ultimately need biopsy of one of the left lower lobe lesions, which would then be sent for NGS and PD-L1 testing to assess treatment options -Biopsy can be performed on an outpatient basis if her respiratory status is improved and stable -We will be sure to arrange for outpatient follow-up along with biopsy of one of the left lower lobe lesions, ideally the most FDG avid lesion with an SUV of 5.8
[2022-07-06 12:49] VITALS: BP 124/65; PULSE 82; TEMP 98.6
--- NOTE | 2022-07-07 00:23 | P.DS ---
Providers Date of admission: 07/03/22 17:04 Attending physician: Carol Frost Consults: 07/03/22 17:01 Consult Physician Urgent Consulting Provider: De Sweet Consult Reason/Comments: Pleural effusion, dyspnea Do you want consulting provider notified?: Yes Consult Physician Urgent Consulting Provider: Elie Hyde Consult Reason/Comments: Recurrent pleural effusion Do you want consulting provider notified?: Yes 07/04/22 16:09 Consult Physician Routine Consulting Provider: Elie Hyde Consult Reason/Comments: recurrent left effusion Do you want consulting provider notified?: Yes 07/04/22 16:58 Consult Physician Routine Consulting Provider: Zachary Servin Consult Reason/Comments: hx lung cancer, nodule found Do you want consulting provider notified?: Yes Primary care physician: Isael Humphries MD Hospital Course: Diagnoses: Recurrent left pleural effusion, status post left Pleurx catheter placement on and 07/05/2022. Had a suspicious for malignant effusion although for sample was negative left upper lung nodule 1.0 cm chronic hypoxic respiratory failure Atelectasis non-small cell lung cancer, adenocarcinoma,of the right lungstatus post lumpectomy and chemotherapy Mild transaminitis COPD without exacerbation Diabetes mellitus Hyperlipidemia Hypertension Hospital course: This is a pleasant 77 years old female with past medical history of right lung cancer since 2016, she is to follow up with Dr. Oquendo and she received 3 cycles of chemotherapy so far. She was recently admitted to the hospital 06/25-06/26 for left pleural effusion status post thoracocentesis of 900 mL of serosanguineous fluid on 06/26, cytology reports show benign results. Presents with exertional dyspnea and dry cough and with no chest pain Patient found to have recurrent pleural effusion suspicious for malignant disease despite first cytology sample was negative, pulmonary and cardiothoracic surgery team were consulted Pleurx catheter was placed yesterday and patient tolerated the procedure well 1.2 L of fluid has been removed. Today patient she feels better This morning I made with pulmonary team and I discussed the case with Summer and Dr. Sweet and both told me patient can be discharged home today. Patient feels much better and she wants to go home, she denies chest pain or coughing. No significant dyspnea. No other new complaints. Patient was cleared for discharge by all consults is occluded and pulmonary, cardiothoracic surgery team was sent off and oncology team. Patient informed that she has high probability having recurrent cancer and she needs close outpatient follow-up with oncology team and Pulmonary team and she agrees. Also she asked me to talk to her son Roberth whom I called upon her request and I discussed the case with him and he also understands the possibility of recurrent cancer and the need for close outpatient follow-up with both mentioned services of oncologist and sports intern. Patient informed and she agrees with the appointments made for her with Dr. Llamas from pulmonary service on 07/11 stated she will follow-up. Patient denies any other new symptoms. Problems and management plan were discussed with the patient and he verbalized understanding and acceptance Patient was found stable and can be discharged home in guarded prognosis however he needs follow-up as an outpatient. Patient was instructed to follow up with PCPDr. Humphries within one week and patient agrees Patient agrees to follow up with pulmonary service and Dr. Llamas on 07/11 as above. Patient was instructed to follow up with oncologist Dr. Oquendo or office follow-up in one week and she agrees to call and make appointments Physical exam Gen: patient is a AAOx3, no distress CVS: S1-S2, RRR, no murmur -Lungs: B/L CTA, no wheezing. Left Pleurx catheter in a Place Abdomen: soft, no distention, no tenderness, positive bowel sounds Extremity: no leg edema or induration Time spent more than 35 minutes Plan - Discharge Summary Discharge Rx Participant: No New Discharge Prescriptions: New Docusate [Colace] 100 mg PO BID PRN 5 Days #10 cap PRN Reason: Constipation Continue Folic Acid 1 mg PO DAILY Pantoprazole [Protonix] 40 mg PO DAILY Vitamin E (Dl,Tocopheryl Acet) [Vitamin E (400 Iu = 180 mg)] 400 unit PO DAILY Cholecalciferol [Vitamin D3 (25 Mcg = 1000 Iu)] 50 mcg PO DAILY Levothyroxine Sodium [Synthroid] 75 mcg PO DAILY Albuterol Inhaler [Ventolin Hfa Inhaler] 2 puff INHALATION RT-Q6H PRN PRN Reason: Shortness Of Breath HYDROcodone/APAP 5-325MG [Bangs 5-325] 1 tab PO Q6H PRN PRN Reason: Pain Ipratropium [place] 0.06%Nasal [Atrovent Nasal 0.06%] 2 spr EA NOSTRIL BID PRN PRN Reason: Runny Nose Rosuvastatin Calcium [Crestor] 40 mg PO HS Insulin Glargine,Hum.rec.anlog [Lantus Solostar Pen] 23 units SQ HS amLODIPine [Norvasc] 5 mg PO BID Insulin Lispro [humaLOG Kwikpen] See Protocol SQ AC-TID Triamcinolone 0.1% Cream [Kenalog 0.1% Cream] 1 applic TOPICAL BID PRN PRN Reason: vulvar pruritus Discontinued Acetaminophen/Diphenhydramine [Tylenol PM 500-25mg] 2 tab PO HS hydrALAZINE HCL [Apresoline] 50 mg PO BID Discharge Medication List Folic Acid 1 mg PO DAILY 12/29/19 [History] Pantoprazole [Protonix] 40 mg PO DAILY 06/28/20 [History] Albuterol Inhaler [Ventolin Hfa Inhaler] 2 puff INHALATION RT-Q6H PRN 06/25/22 [History] Cholecalciferol [Vitamin D3 (25 Mcg = 1000 Iu)] 50 mcg PO DAILY 06/25/22 [History] Insulin Glargine,Hum.rec.anlog [Lantus Solostar Pen] 23 units SQ HS 06/25/22 [History] Levothyroxine Sodium [Synthroid] 75 mcg PO DAILY 06/25/22 [History] Rosuvastatin Calcium [Crestor] 40 mg PO HS 06/25/22 [History] Vitamin E (Dl,Tocopheryl Acet) [Vitamin E (400 Iu = 180 mg)] 400 unit PO DAILY 06/25/22 [History] amLODIPine [Norvasc] 5 mg PO BID 06/25/22 [History] HYDROcodone/APAP 5-325MG [Bangs 5-325] 1 tab PO Q6H PRN 07/03/22 [History] Insulin Lispro [humaLOG Kwikpen] See Protocol SQ AC-TID 07/03/22 [History] Ipratropium [place]es 0.06%Nasal [Atrovent Nasal 0.06%] 2 spr EA NOSTRIL BID PRN 07/03/22 [History] Triamcinolone 0.1% Cream [Kenalog 0.1% Cream] 1 applic TOPICAL BID PRN 07/03/22 [History] Docusate [Colace] 100 mg PO BID PRN 5 Days #10 cap 07/06/22 [Rx] Follow up Appointment(s)/Referral(s): Angel Queen MD [STAFF PHYSICIAN] - 07/11/22 9:30 am Yessenia Yung MD [STAFF PHYSICIAN] - 1 Week Isael Humphries MD [Primary Care Provider] - 1-2 days Elie Hyde MD [STAFF PHYSICIAN] - 10 Days [facility], [NON-STAFF] - ([facility] a [facility] Danielle Oquendo MD [STAFF PHYSICIAN] - 1 Week (The office is closed please call and schedule this appointment friday. follow-up with dr. yung from the same) Activity/Diet/Wound Care/Special Instructions: PLEURX DISCHARGE INSTRUCTIONS: 1. Home care is ordered, they will obtain new bottles. 2. May shower after 24 hours, no baths/hot tubs. 3. Do not drain more than 1 L or 1000 mL from the Pleurx catheter in 24 hours. 4. NEW drainage bottles needed with each drainage. 5. Drainage frequency dictated by the patient's symptoms, may be every day, every other day, weekly or as needed if the patient is symptomatic. 6. Please notify the nurse practitioner or surgeons office if temperature is greater than 101F, excessive pain at insertion site, drainage consistency changes to cloudy or smells bad, catheter falls out. 7. Contact surgery office with weekly drainage amount. May fax the amounts. 8. Once drainage is less than 50 mL 3 times in a row, notify the surgery office for possible removal. Surgery office phone number is [phone], fax number is [phone] The Nurse practitioner numbers: Sandra [phone], Meek [phone] Discharge Disposition: HOME WITH HOME HEALTH SERVICES
== END 2022-07-06 14:43 | disposition home health service (06) | DRG 187 ==
LOC: EC 11:15 → 5NMEDONC 17:04
PROVIDERS: ADMIT Hospitalist; ATTEND Hospitalist
PROC: 0W9B30Z Drainage of Left Pleural Cavity with Drainage Device, Percutaneous Approach (ICD-10-PCS; principal; 2022-07-05 10:45)
DX: J90 Pleural effusion, not elsewhere classified (principal); C78.02 Secondary malignant neoplasm of left lung; J94.8 Other specified pleural conditions; J96.11 Chronic respiratory failure with hypoxia; J98.11 Atelectasis; E11.9 Type 2 diabetes mellitus without complications; E03.9 Hypothyroidism, unspecified; D63.0 Anemia in neoplastic disease; J44.9 Chronic obstructive pulmonary disease, unspecified; Z79.4 Long term (current) use of insulin; E78.5 Hyperlipidemia, unspecified; I10 Essential (primary) hypertension; F41.9 Anxiety disorder, unspecified; M81.0 Age-related osteoporosis without current pathological fracture; M19.90 Unspecified osteoarthritis, unspecified site; M51.36 Other intervertebral disc degeneration, lumbar region; K21.9 Gastro-esophageal reflux disease without esophagitis; R74.01 Elevation of levels of liver transaminase levels; Z79.890 Hormone replacement therapy; Z99.81 Dependence on supplemental oxygen; Z79.899 Other long term (current) drug therapy; Z85.118 Personal history of other malignant neoplasm of bronchus and lung; Z90.2 Acquired absence of lung [part of]; Z87.891 Personal history of nicotine dependence; Z92.21 Personal history of antineoplastic chemotherapy
CPT/HCPCS: 36415; 71045; 71046; 71250; 76604; 76700; 80048; 80053; 83735; 83880; 84145; 84484; 85025; 85379; 85610; 85730; 88108; 88305; 93005; 99285